=== PATIENT | female | born 1965 | race Caucasian/White ===

== ENCOUNTER 2024-01-07 13:19 | Outpatient (OUT) | payer OTHER, SELFPAY ==
--- NOTE | 2024-01-07 13:22 | MR_ITS ---
[address] [address] Patient Name: CECE SMITH MRN: [id number] date: 1965 Sex: F Assigned Patient Location: MRI Current Patient Location: Accession/Order Number: [id number] Exam Date: 01/07/2024 14:30 Report Date: 01/08/2024 06:55 At the request of: NON-STAFF PHYSICIAN Procedure: MR shoulder LT wo con EXAMINATION: MR shoulder LT wo con HISTORY: Left Shoulder Impingement Syndrome M75.42 ; chronic left shoulder pain COMPARISON: No relevant comparison available. TECHNIQUE: A variety of imaging planes and parameters were utilized for visualization of suspected pathology. Imaging was performed without or with contrast as indicated by examination type. FINDINGS: ROTATOR CUFF REGION CUFF TENDONS: Mildly increased signal intensity in the supraspinatus tendon indicates tendon degeneration and/or tendinitis. No gualberto tear is seen. CUFF MUSCLES: Normal appearing muscles. DELTOID: Normal. No significant atrophy or tear. LONG BICEPS TENDON: Normal. No abnormal signal, attrition, or tear. LABRUM/BICEPS ANCHOR SUPERIOR: Normal. No visible labral tear or biceps anchor pathology. ANTERIOR/INFERIOR: Normal. No visible tear or attrition. POSTERIOR: Normal. No posterior labrum abnormality. CAPSULE Normal. No visible capsular laxity or thickening. AC JOINT REGION AC JOINT: Mild osteoarthropathy with no significant narrowing of the underlying coracoacromial arch. AC LIGAMENTS: Normal acromioclavicular ligament. CC LIGAMENTS: Normal coracoclavicular ligaments. ACROMION: Normal horizontal (Type I) configuration. SUBACROMIAL BURSA: Normal. No significant effusion. HYALINE CARTILAGE: Normal. No visible cartilage narrowing or focal defect. OTHER BONES: Normal proximal humerus, glenoid, and coracoid. OTHER OBSERVATIONS: Negative. No other significant findings or glenohumeral effusion. MR/MR shoulder LT wo con IMPRESSION: 1. Mild strain of the supraspinatus tendon. 2. Mild degenerative changes of the acromioclavicular joint. Electronically authenticated by: EWA WOODRUFF Date: 01/08/2024 06:55
== END 2024-01-07 13:20 | disposition home or self-care (01) ==
LOC: MRI 13:19
DX: M75.42 Impingement syndrome of left shoulder (principal); M75.82 Other shoulder lesions, left shoulder; S46.012D Strain of muscle(s) and tendon(s) of the rotator cuff of left shoulder, subsequent encounter
CPT/HCPCS: 73221

== ENCOUNTER 2024-06-29 13:52 | Outpatient (OUT) | payer BC, SELFPAY ==
--- NOTE | 2024-06-29 | MM_ITS ---
Patient Name: CECE SMITH MR#: [id number] : 1965 Exam Date: 06/29/2024 Ordering Doctor: Maddy Griffith RADIOLOGY REPORT PROCEDURE: MM TOMOSYNTHESIS SCREENING BI COMPARISON: MG MAMM DIAGNOSTIC 3D LETY CAD, 02/18/2023. MG MAMM RT DIAG W CAD, 05/14/2019. MG MAMM LETY DIAG W CAD, 09/08/2018. INDICATIONS: Breast cancer screening Z12.39 Calculator Name NCI Breast Cancer Risk Assessment Tool 5 Year Breast Cancer Risk 1.70% Lifetime Breast Cancer Risk 10.40% Personal Breast Cancer No Personal Ovarian Cancer No Treatments None Family Cancers Mother with uterine cancer at age 82. LOCATION: [facility] BREAST COMPOSITION: The breasts are heterogeneously dense,which may obscure small masses. FINDINGS: DIAGNOSTIC CATEGORY 2--BENIGN FINDING: RIGHT BREAST: No significant suspicious finding. Scattered benign-appearing nodules are present. Scattered benign-appearing calcifications are present. No significant change has occurred. LEFT BREAST: No significant suspicious finding. Scattered benign-appearing nodules are present. Scattered benign-appearing calcifications are present. No significant change has occurred. RECOMMENDATIONS: ROUTINE MAMMOGRAM AND CLINICAL EVALUATION IN 12 MONTHS. PLEASE NOTE: A NORMAL MAMMOGRAM DOES NOT EXCLUDE THE POSSIBILITY OF BREAST CANCER. A CLINICALLY SUSPICIOUS PALPABLE LUMP SHOULD BE BIOPSIED. Dictated by: Brant Sequeira M.D. on 06/29/2024 at 17:23 Approved by: Brant Sequeira M.D. on 06/29/2024 at 17:27
== END 2024-06-29 13:53 | disposition home or self-care (01) ==
LOC: MAMMO 13:52
DX: Z12.31 Encounter for screening mammogram for malignant neoplasm of breast (principal); Z80.8 Family history of malignant neoplasm of other organs or systems
CPT/HCPCS: 77063; 77067

== ENCOUNTER 2025-09-05 04:07 | Emergency (ER) | payer BC, SELFPAY ==
--- OUTSIDE RECORDS SUMMARY | 2024-11-30 05:00 | XMS_ITS ---
Author Organization [facility] vices Address [address] [place], [place] [id number] Care Team Providers Care Miller Supervisor Name Role Phone Naheed Arteaga Primary Care Provider REASON FOR VISIT 6 mo f/u HTN / HLD Medications Medication SIG (Take, Route, Frequency, Duration) Notes Start Date End Date Status hydroCHLOROthiazide 12.5 MG TAKE [address] [facility] EVERY MORNING; Duration: 90 ActiveRosuvastatin Calcium 5 MGTAKE 1 TABLET BY MOUTH DAILY; Duration: 90Active Pregabalin 75 MG1 Oral twice daily; Duration: 30 daysActiveIbuprofen 600 MG1 tablet with food or milk as needed Orally Three times a day; Duration: 10 days Stop Meloxicam for now , donot take Ibuprofen and Meloxicam same time05/16/2023 Active Social History Sex Assigned At : Social History Observation Description Sex Assigned At Female Encounters Encounter Location Date Provider Diagnosis Main [address] [place], [place] [id number] 11/30/2024 Naheed Arteaga Plan Of Treatment Next Appt Details Provider Name:Naheed Arteaga, 09/14/2025 02:00:00 PM, [address] [place], [place], [id number], Progress Notes * Milka SMITHOB: 7 (60 yo F)Acc No.[id number]:11/30/2024 Medical Note Patient: Dena Kiley RODRIGUEZ :?Naheed Arteaga MDDOB:1965???Age:59 Y???Sex: FemaleDate:11/30/2024Phone:[phone]:[address], [id number] Subjective: * Chief Complaints: * 1 . 6 mo f/u HTN / HLD. * Medical History: * Medications: T aking Ibuprofen 600 MG Tablet 1 tablet with food or milk as needed Orally Three times a day , Notes to Pharmacist: Stop Meloxicam for now , donot take Ibuprofen and Meloxicam same time, Taking Pregabalin 75 MG Capsule 1 Oral twice daily , Taking Rosuvastatin Calcium 5 MG Tablet TAKE 1 TABLET BY MOUTH DAILY , Taking hydroCHLOROthiazide 12.5 MG Capsule TAKE 1 CAPSULE BY MOUTH EVERY MORNING Objective: * Vitals: Assessment: Plan: * Treatment: * Billing Information: * Visit Code: * Procedure Codes: * Electronic signature of Naheed Arteaga MD on 09/05/2025 at 04:47 AM ESTSign off status: Pending * Provider: Ryne Arteaga MD Date: 0 11/30/2024 Generated for Printing/Faxing/eTransmitting on:?09/05/2025 04:47 AM EST
--- OUTSIDE RECORDS SUMMARY | 2024-11-30 05:30 | XMS_ITS ---
Author Organization [facility] vices Address [address] [facility] [place] [id number] Care Team Providers Care Senior Planner Name Role Phone Naheed Arteaga Primary Care Provider Maddy Griffith [phone] REASON FOR VISIT 6 month f/u htn/hld Social History Sex Assigned At : Social History Observation Description Sex Assigned At Female Encounters Encounter Location Date Provider Diagnosis [facility] [address] [place] [phone] 11/30/2024 Maddy Griffith Plan Of Treatment Next Appt Details Provider Name:Naheed Arteaga, 09/14/2025 02:00:00 PM, [address] [place], [place], [phone], Progress Notes * LUIS MilkaOB: 7 (60 yo F)Acc No.[id number]:11/30/2024 Medical Note Patient: Kiley MATA :?Maddy Griffith, MDDOB:1965???Age:59 Y???Sex: FemaleDate:11/30/2024Phone:[phone]:[address], [place], [id number]:Naheedtai Arteaga Subjective: * Chief Complaints: * 1 . 6 month f/u htn/hld. * Medical History: Objective: * Vitals: Assessment: Plan: * Treatment: * Billing Information: * Visit Code: * Procedure Codes: * Electronic signature of Maddy Griffith MD on 09/05/2025 at 04:46 AM ESTSign off status: Pending * Provider: Enzo Griffith MD Date: 0 11/30/2024 Generated for Printing/Faxing/eTransmitting on:?09/05/2025 04:46 AM EST
--- OUTSIDE RECORDS SUMMARY | 2025-02-09 10:15 | XMS_ITS | Continuity of Care Document ---
Author Organization [facility] Address [address] [place] [address] Phone Care Team Providers Care Gis Physical Scientist Name Role Phone Rosas Angulo MD Unavailable Unavailable Allergies, Adverse Reactions, Alerts Substance Reaction Status Criticality ZOLPIDEM TARTRATE Active No Informa tion HYDROCODONE BITARTRATE Active No In formation acetaminophen Active No Information oxycodone Active No Information Medications Medication Instructions Dosage Effective Dates (start - stop) Status Comments meloxicam 15 mg tablet take 1 tablet by oral route every morning with food- DO NOT TAKE STEROIDS - Active meloxicam 15 mg tablet take 1 tablet by oral route every morning with food- DO NOT TAKE STEROIDS - Active meloxicam 15 mg tablet take 1 tablet by oral route every day 15 MG - Active ondansetron 8 mg disintegrating tablet dissolve 1 tablet ON TONGUE every 4 hours if needed - Active oxycodone-acetaminophen 5 mg-325 mg tablet - Active tizanidine 4 mg tablet - Act paradise gabapentin 600 mg tablet take 1 tablet by mouth three times a day - Active lisinopril 10 mg tablet take 1 tablet by mouth once daily - Active Procedures Procedure Date Office/outpatient visit,est, mod 2024 Office/outpatient visit,est, mod 2023 Office/outpatient visit,est, mod 2023 Office/outpatient visit,est, mod 2023 Office/outpatient visit,est, mod 2023 Office/outpatient visit,est, mod 2023 Drain Or inject major jointor bursa Dexamethasone sodium phos Bupivicaine Injection 0.5 mg Inj Methylpred Acetate 1 MG Office/outpatient visit,est, mod 2023 X-ray exam of shoulder, complete 2023 Office/outpatient visit,est, mod 2022 Office/outpatient visit,new, mod 2022 Office/outpatient visit,est, mod 2022 X-ray exam of neck spine2-3 views Office/outpatient visit,est, mod 2022 Office/outpatient visit,est, mod 2022 Triamcinolone acetonide inj Drain Or inject major jointor bursa Office/outpatient visit,est, mod 2022 Office/outpatient visit,est, mod 2022 X-ray exam of shoulder, complete 2022 NRV CNDJ TST 5-6 STUDIES MUSC TEST DONE W/N TEST COMP Office/outpatient visit,est, mod 2022 Office/outpatient visit,est, mod 2022 X-ray exam of neck spine2-3 views Postop followup visit X-ray exam of neck spine2-3 views PA NECK SPINE FUSE&REMOVE ADDL 22 PA Insert Spine Fix Dev, Ant 2-3 Seg Jul PA Insj biomechanical device NECK SPINE FUSE&REMOVE ADDL Insert spine fix dev, ant, 2-3 seg Insj biomechanical device Allograft, spine surg, structural Cerv flexible non-adjustable Advance Directives Directive Yes / No Effective Date File Name No Information Encounters Encounter Description Practice Location Reason(s) For Visit Diagnoses Date Provider Providers Copied on Encounter [facility] [place], [address], [place] tel:[phone] No Information 5 Kev Pillai. [address], [place], [id number], [place]. tel:[phone] Referring Provider: Rosas Lynn, [address] [place], [address]. tel:[phone] Office/outpa tient visit,est, mod [facility] [place], [address], [place] tel:[phone] [place] Other spondylosis with radiculopath y, cervical region 5 Kev Thompsonin. [address], [place], [id number], [place]. tel:[phone] Referring Provider: Rosas Lynn, [address] [place], [address]. tel:[phone] Office/outpa tient visit,est, mod [facility] [place], [address], [place] tel:[phone] [place] Other spondylosis with radiculopath y, cervical region 4 Kev Thompsonin. [address], [place], [id number], [place]. tel:[phone] Referring Provider: Rosas Lynn, [address] [place], [address]. tel:[phone] Office/outpa tient visit,est, mod [facility], [address] [place] [address], [address], [place] tel:[phone] [place] Other spondylosis with radiculopath y, cervical region 4 Angulo Rosas. [address], [place], [id number], [place]. tel:[phone] Referring Provider: Hunter Fernandes, [address] [place], [address]. tel:[phone] Office/outpa tient visit,est, mod [facility], [address] [place], [address], [place] tel:[phone] ON [place] Strain of muscle(s) and tendon(s) of the rotator cuff of left shoulder, subsequent encounterFus ion of spine, cervical region Sep-3 0 4 Robyn Harrison. [address], [place], [id number], [place]. tel:[phone] Referring Provider: Rosas Lynn, [address] [place], [address]. tel:[phone] Office/outpa tient visit,est, mod [facility], [address] [place], [address], [place] tel:[phone] ON [place] Other spondylosis with myelopathy, cervical regionOther spondylosis with radiculopath y, cervical region May- 4 Kev Pillai. [address], [place], [id number], [place]. tel:[phone] Referring Provider: Jet Mccoy, [address], [place], [address]. tel:[phone] Office/outpa tient visit,est, mod [facility], [address] [place], [address], [place] tel:[phone] [place] Other spondylosis with myelopathy, cervical regionStrain of muscle(s) and tendon(s) of the rotator cuff of left shoulder, subsequent encounterBur sitis of left shoulder 4 Alda Chaudhary. [address], [address], [place], [place], [id number], [place]. tel:[phone] Referring Provider: Michelle Marina, [address] [place], [address]. tel:[phone] [facility] [place], [place], [facility], tel:[phone] ON [place] Other shoulder lesions, left shoulderImpi ngement syndrome of left shoulder Apr-0 4 Alda Chaudhary. [address], [address], [place], [place], [id number], [place]. tel:[phone] Referring Provider: Palmer Brown [address], [place], [address]. tel:[phone] [facility], [facility] [place], [facility], tel:[phone] ON [place] Impingement syndrome of left shoulderOthe r shoulder lesions, left shoulderStra in of muscle(s) and tendon(s) of the rotator cuff of left shoulder, subsequent encounterImp ingement syndrome of left shoulderOthe r shoulder lesions, left shoulderStra in of muscle(s) and tendon(s) of the rotator cuff of left shoulder, subsequent encounter Mar-0 4 Alda Chaudhary. [address] [facility] [address], [address], [place], [place], [id number], [place]. tel:[phone] Referring Provider: Palmer Brown [address], [place], [address]. tel:[phone] Office/outpa tient visit,est, mod [facility] [place], [facility], tel:[phone] ON [place] Bursitis of left shoulderStra in of muscle(s) and tendon(s) of the rotator cuff of left shoulder, subsequent encounterOth er spondylosis with myelopathy, cervical region Nov- 4 Alda Chaudhary. [address], [address], [place], [place], [id number], [place]. tel:[phone] Referring Provider: Palmer Brown [address], [place], [address]. tel:[phone] [facility] [place], [address], [place] tel:[phone] ON [place] Arthrodesis statusImping ement syndrome of left shoulderOthe r spondylosis with radiculopath y, cervical region 4 Lexi Chakraborty. [address], [place], [place], [id number], [place]. tel:[phone] Referring Provider: Palmer Brown, [address], [place], [address]. tel:[phone] Office/outpa tient visit,est, mod [facility] [place], [address], [place] tel:[phone] ON [place] Other spondylosis with radiculopath y, cervical region 3 Lexi Chakraborty. [address], [place], [place], [id number], [place]. tel:[phone] Referring Provider: Palmer Brown, [address], [place], [address]. tel:[phone] Office/outpa tient visit,new, mod [facility] [place], [address], [place] tel:[phone] ON [place] Cervical disc disorder at C4-C5 level with radiculopath yOther spondylosis with radiculopath y, cervical regionOther spondylosis with myelopathy, cervical regionCerv disc disorder w radiculopath y, high cervical region 3 Kev Thompsonin. [address] [facility], [place], [place], [id number], [place]. tel:[phone] Referring Provider: Palmer Brown, [address], [place], [address]. tel:[phone] Office/outpa tient visit,est, mod [facility] [place], [address], [place] tel:[phone] ON [place] Arthrodesis statusCervic al disc disorder at C4-C5 level with radiculopath yOther spondylosis with radiculopath y, cervical region Mar- 3 Jaime Rahman. [address], [place], [place], [id number]. tel:[phone] Referring Provider: Palmer Brown, [address], [place], [address]. tel:[phone] Office/outpa tient visit,est, mod [facility], [address] [place], [address], [place] tel:[phone] ON [place] Strain of [facility]/tend the rotator cuff of left shoulder, subsBursitis of left shoulder 3 Arsenio Smith. [address], [place], [place], [id number], [place]. tel:[phone] Referring Provider: Luis Breen, [address], [place], [address]. tel:[phone] Office/outpa tient visit,est, mod [facility], [address] [place], [address], [place] tel:[phone] ON [place] Other shoulder lesions, left shoulderImpi ngement syndrome of left shoulderImpi ngement syndrome of left shoulderOthe r shoulder lesions, left shoulderStra in of [facility]/tend the rotator cuff of left shoulder, subsBursitis of left shoulder Dec- 3 Arsenio Smith. [address], [place], [place], [id number], [place]. tel:[phone] Referring Provider: Luis Breen, [address], [place], [address]. tel:[phone] Office/outpa tient visit,est, mod [facility], [address] [place], [address], [place] tel:[phone] [place] Arthrodesis statusOther spondylosis with radiculopath y, cervical region Mar- 3 Jaime Lacey. [address], [place], [place], [id number]. tel:[phone] Referring Provider: Palmer Brown, [address], [place], [address]. tel:[phone] Office/outpa tient visit,est, mod [facility] [place], [address], [place] tel:[phone] ON [place] Strain of musc/tend the rotator cuff of left shoulder, initBursitis of left shoulder Dec-1 3 Arsenio Smith. [address], [place], [place], [id number], [place]. tel:[phone] Referring Provider: Palmer Brown, [address], [place], [address]. tel:[phone] [facility] [place], [facility], [place] tel:[phone] ON [place] EMG/NCS (chief complaint) Left carpal tunnel syndromeOthe r spondylosis with myelopathy, cervical region Dec-0 3 Marla Saab. [address] [place] [address], [place], [place], [id number], [place]. tel:[phone] Referring Provider: Palmer Brown, [address], [place], [address]. tel:[phone] Office/outpa tient visit,est, mod [facility] [place], [address], [place] tel:[phone] [place] Other spondylosis with myelopathy, cervical regionOther spondylosis with radiculopath y, cervical regionArthro desis statusChroni c left shoulder painLeft carpal tunnel syndromeOthe r spondylosis with myelopathy, cervical regionOther spondylosis with radiculopath y, cervical regionArthro desis statusChroni c left shoulder pain Dec-0 3 Lexi Chakraborty. [address], [place], [place], [id number], [place]. tel:[phone] Referring Provider: Palmer Brown, [address], [place], [address]. tel:[phone] [facility], [facility] [place], [facility], tel:[phone] ON [place] Other spondylosis with radiculopath y, cervical regionOther spondylosis with myelopathy, cervical region 3 Lexi Chakraborty. [address], [place], [place], [id number], [place]. tel:[phone] Referring Provider: Palmer Brown, [address], [place], [address]. tel:[phone] Office/outpa tient visit,est, [facility] [place], [facility], tel:[phone] ON [place] Arthrodesis statusLeft carpal tunnel syndromeChro cristhian left shoulder pain 3 Jalovec Lacey. [address], [place], [id number]. tel:[phone] Referring Provider: Palmer Brown, [address], [place], [address]. tel:[phone] [facility], [facility] [place], [facility], tel:[phone] ON [place] Arthrodesis statusOther spondylosis with radiculopath y, cervical region 2 Lexi Chakraborty. [address], [place], [place], [id number], [place]. tel:[phone] Referring Provider: Palmer Brown, [address], [place], [address]. tel:[phone] [facility], [facility] [place], [facility], tel:[phone] ON [place] Arthrodesis statusOther spondylosis with radiculopath y, cervical region 2 Lexi Chakraborty. [address], [place], [place], [id number], [place]. tel:[phone] Referring Provider: Palmer Brown, [address], [place], [address]. tel:[phone] [facility], [address], [place], [facility], [place] tel:[phone] [place] No Information 2 White Palmer. [address], [place], [place], [id number], [place]. tel:[phone] [facility], [address], [place], [facility], [place] tel:[phone] [facility] No Information 2 Jaime Rahman. [address] [facility], [place], [place], [id number]. tel:[phone] Referring Provider: Palmer Brown, [address], [place], [address]. tel:[phone] [facility], [address], [place], [facility], [place] tel:[phone] [facility] No Information 2 White Palmer. [address], [place], [place], [id number], [place]. tel:[phone] Referring Provider: Palmer Brown, [address], [place], [address]. tel:[phone] [facility] [place], [facility], [place] tel:[phone] [place] No Information 2 Lexi Chakraborty. [address], [place], [place], [id number], [place]. tel:[phone] Referring Provider: Palmer Brown, [address], [place], [address]. tel:[phone] Family History Family Member Type Diagnosis Age At Onset Sister Problem (finding) Hypertension Sister Problem (finding) Diabetes mellitus Father Problem (finding) Diabetes mellitus Brother Problem (finding) Diabetes mellitus Father Problem (finding) Hypertension Brother Problem (finding) Hypertension Mother Problem (finding) Cancer Mother Problem (finding) Congenital heart diseas e Father Problem (finding) Congenital heart diseas e Mother Problem (finding) Hypertension Payers Payer name Insurance type Covered republican ID Authormarka faiza(s) [employer] [id number] Social History Type Description Quantity Date Captured Comments Sex Female Smoking Status No Information Chief Complaint And Reason For Visit No Information Reason For Referral Reason For Referral No Information Plan Of Treatment Date Type Action Status Referral Ordered: Krystyna Tang MD -Pain Medicine (related to Other spondylosis with radiculopathy, cervical region) [id number] Ordered: Dr. Gunn -Physical Medicine and Rehabilitation (related to Other shoulder lesions, left shoulder) [id number] Referred To: Dr. Gunn Ordered: Referrals: Physical Medicine and Rehabilitation. Dr. Gunn. Evaluate and treat [id number] Ordered: Dr. Guillaume Santacruz -Physical Medicine and Rehabilitation (related to Impingement syndrome of left shoulder) [id number] Referred To: Dr. Guillaume Santacruz Ordered: Referrals: Physical Medicine and Rehabilitation. Dr. Guillaume Santacruz. Evaluate and treat [id number] Order: Radiology OrderShoulder MRI joint, w/o contrast, Left ([id number]), Body Site: Shoulder, Sent on: [id number] Order: Radiology OrderCervical Spine MRI w/o contrast, Complete ([id number]), Body Site: Spine, Sent on: [id number] History Of Present Illness Encounter Date Complaint History Of Prese nt Illness Follow Up Spine-lumbar Injection Denise Reyes is 59-year-old patient presenting here for follow-up. She returns after having been seen last on 09/15/2024. We had recommended 2 rounds of C3-C5 medial branch nerve blocks in preparation for radiofrequency ablation. Those have not been completed. We submitted C9 for approval. She reports the pain score as 7 /10 today but it can rise up to a higher level. She expresses that the first round of nerve blocks was too painful to continue with the second, and local anesthesia did not provide significant relief. The patient has moved since the last visit, which has impacted her ability to follow through with the recommended treatment. She is considering returning to work full-time and is seeking a second opinion from an outside pain doctor for alternative pain management options. The patient also reports pain while driving, indicating that the cervical issue persists. She has a history of workman's comp and is currently without a primary care doctor due to her previous doctor qu Follow Up Spine-maya Cao is a 59-year-old patient presenting here for cervical spine pain. We saw her last on 07/22/2024. We had recommended 2 rounds of C3 through C5 medial branch nerve blocks in preparation for radiofrequency ablation. These nerve blocks have not been completed. She reports the pain score as 6/10 today. The pain radiates past the shoulders and down the arms, causing numbness and tingling in the hands. The patient experiences difficulty with rotational movements of the neck. The patient reports that the pain is getting worse. The patient has previously undergone surgery and has consulted multiple doctors for this issue. She denies any red flag symptoms and paralysis or loss in bladder control. She reports that the symptoms are affecting all activities of daily life as well as overall quality of life. New Problem Maya Cao is a 59-year-old patient presenting here for cervical spine pain. She is a referral from Dr. Hunter Carlson. She had a work-related injury on 05/07/2017 involving her cervical spine. Patient has a history of C5-C6 ACDF that was performed by Dr. Elliott in 2021. She has had increased neck pain towards the left shoulder through the medial scapula border as well. Left side is C4-5 transforaminal epidural steroid injection was attempted with little to no relief. She also had a shoulder injection with limited benefit. She had an EMG which was read as normal. MRI demonstrated a previous strain of her supraspinatus. She is here to discuss other potential treatments. She has tried medications like gabapentin, Percocet, tizanidine, meloxicam, without relief. Previous MRI demonstrated absence of critical adjacent segment stenosis. She has been recommended for possible super scapular peripheral nerve stimulator versus cervical medial branch blocks. She reports left shoulder pain after her Follow Up Spine-lumbar Kiley is a 59-year-old patient presenting here for left shoulder pain. We last saw her on 08/01/2023 discussing her workman's comp claim and left shoulder pain. She had a previous ACF surgery back in 2021. She had failed physical therapy, medications and is recommended for a targeted cervical transforaminal epidural steroid injection that I did not complete. We had referred her over to Dr. Krystyna Tang. She has recently seen Dr. Lizama. She reports severe neck and shoulder pain. She reports associated numbness. She reports that she received an injection from Dr. Tang in January or December with no significant benefit. She received an injection from Dr. Lizama. She has tried physical therapy and medications. She denies any red flag symptoms and paralysis or loss in bladder control. She reports the pain score as 6/10 today. She reports that the symptoms are affecting all activities of daily life as well as overall quality of life. EMG/NCS Functional Status Date Functional Assessmen t No Information Instructions Date Instruction Additional Infor mation No Information Assessments Type Assessment Date No Information Patient Care Teams Name Effective Dates (start - stop) Status Members No Information
--- OUTSIDE RECORDS SUMMARY | 2025-02-09 10:15 | XMS_ITS | Continuity of Care Document ---
Author Organization [facility] Address [address] [place] [address] Phone Care Team Providers Care Radio Program Director Name Role Phone Rosas Angulo MD Unavailable [...] Providers Copied on Encounter [facility], [facility] [place], [address], [place] tel:[phone] No Information 5 Kev Pillai. [address], [place], [id number], [place]. tel:[phone] Referring Provider: Rosas Lynn, [address] [place], [address]. tel:[phone] Office/outpa tient visit,est, mod [facility], [facility] [place], [address], [place] tel:[phone] ON [place] Other spondylosis with radiculopath y, cervical region 5 Kev Thompsonin. [address], [place], [id number], [place]. tel:[phone] Referring Provider: Rosas Lynn, [address] [place], [address]. tel:[phone] Office/outpa tient visit,est, mod [facility], [facility] [place], [address], [place] tel:[phone] ON [place] Other spondylosis with radiculopath y, cervical region 4 Kev Thompsonin. [address], [place], [id number], [place]. tel:[phone] Referring Provider: Rosas Lynn, [address] [place], [address]. tel:[phone] Office/outpa tient visit,est, mod [facility], [address] [place] [address], [address], [place] tel:[phone] ON [place] Other spondylosis with radiculopath y, cervical region 4 Angulo Rosas. [address], [place], [id number], [place]. tel:[phone] Referring Provider: Hunter Fernandes, [address] [place], [address]. tel:[phone] Office/outpa tient visit,est, mod [facility], [address] [place], [address], [place] tel:[phone] ON [place] Strain of muscle(s) and tendon(s) of the rotator cuff of left shoulder, subsequent encounterFus ion of spine, cervical region Sep-3 0 4 Robyn Harrison. [address], [place], [id number], [place]. tel:[phone] Referring Provider: Rosas Lynn, [address] [place], [address]. tel:[phone] Office/outpa tient visit,est, mod [facility], [address] [place], [address], [place] tel:[phone] ON [place] Other spondylosis with myelopathy, cervical regionOther spondylosis with radiculopath y, cervical region May- 4 Kev Pillai. [address], [place], [id number], [place]. tel:[phone] Referring Provider: Jet Mccoy, [address], [place], [address]. tel:[phone] Office/outpa tient visit,est, mod [facility], [address] [place], [address], [place] tel:[phone] ON [place] Other spondylosis with myelopathy, cervical regionStrain of muscle(s) and tendon(s) of the rotator cuff of left shoulder, subsequent encounterBur sitis of left shoulder 4 Alda Chaudhary. [address], [address], [place], [place], [id number], [place]. tel:[phone] Referring Provider: Michelle Marina, [address] [place], [address]. tel:[phone] [facility], [facility] [place], [facility], tel:[phone] ON [place] Other shoulder lesions, left shoulderImpi ngement syndrome of left shoulder Apr-0 4 Alda Chaudhary. [address], [address], [place], [place], [id number], [place]. tel:[phone] Referring Provider: Palmer Brown [address], [place], [address]. tel:[phone] [facility], [facility] [place], [facility], tel:[phone] ON [place] Impingement syndrome of left shoulderOthe r shoulder lesions, left shoulderStra in of muscle(s) and tendon(s) of the rotator cuff of left shoulder, subsequent encounterImp ingement syndrome of left shoulderOthe r shoulder lesions, left shoulderStra in of muscle(s) and tendon(s) of the rotator cuff of left shoulder, subsequent encounter Mar-0 4 Alda Chaudhary. [address] [facility] [facility] [address], [place], [place], [id number], [place]. tel:[phone] Referring Provider: Palmer Brown [address], [place], [address]. tel:[phone] Office/outpa tient visit,est, mod [facility], [facility] [place], [facility], tel:[phone] ON [place] Bursitis of left shoulderStra in of muscle(s) and tendon(s) of the rotator cuff of left shoulder, subsequent encounterOth er spondylosis with myelopathy, cervical region Nov- 4 Alda Chaudhary. [address], [address], [place], [place], [id number], [place]. tel:[phone] Referring Provider: Palmer Brown [address], [place], [address]. tel:[phone] [facility] [place], [address], [place] tel:[phone] ON [place] Arthrodesis statusImping ement syndrome of left shoulderOthe r spondylosis with radiculopath y, cervical region 4 Lexi Chakraborty. [address], [place], [place], [id number], [place]. tel:[phone] Referring Provider: Palmer Brown, [address], [place], [address]. tel:[phone] Office/outpa tient visit,est, mod [facility], [facility] [place], [address], [place] tel:[phone] ON [place] Other spondylosis with radiculopath y, cervical region 3 Lexi Chakraborty. [address], [place], [place], [id number], [place]. tel:[phone] Referring Provider: Palmer Brown, [address], [place], [address]. tel:[phone] Office/outpa tient visit,new, mod [facility], [facility] [place], [address], [place] tel:[phone] ON [place] Cervical disc disorder at C4-C5 level with radiculopath yOther spondylosis with radiculopath y, cervical regionOther spondylosis with myelopathy, cervical regionCerv disc disorder w radiculopath y, high cervical region 3 Kev Thompsonin. [address] [facility], [place], [place], [id number], [place]. tel:[phone] Referring Provider: Palmer Brown, [address], [place], [address]. tel:[phone] Office/outpa tient visit,est, mod [facility], [facility] [place], [address], [place] tel:[phone] ON [place] Arthrodesis statusCervic al disc disorder at C4-C5 level with radiculopath yOther spondylosis with radiculopath y, cervical region Mar- 3 Jaime Rahman. [address], [place], [place], [id number]. tel:[phone] Referring Provider: Palmer Brown, [address], [place], [address]. tel:[phone] Office/outpa tient visit,est, mod [facility] [place], [address] [place], [address], [place] tel:[phone] ON [place] Strain of [facility]tend the rotator cuff of left shoulder, subsBursitis of left shoulder 3 Arsenio Smith. [address], [place], [place], [id number], [place]. tel:[phone] Referring Provider: Luis Breen, [address], [place], [address]. tel:[phone] Office/outpa tient visit,est, mod [facility] [place], [address] [place], [address], [place] tel:[phone] ON [place] Other shoulder lesions, left shoulderImpi ngement syndrome of left shoulderImpi ngement syndrome of left shoulderOthe r shoulder lesions, left shoulderStra in of [facility]/tend the rotator cuff of left shoulder, subsBursitis of left shoulder Dec- 3 Arsenio Smith. [address], [place], [place], [id number], [place]. tel:[phone] Referring Provider: Luis Breen, [address], [place], [address]. tel:[phone] Office/outpa tient visit,est, mod [facility] [place], [address] [place], [address], [place] tel:[phone] ON [place] Arthrodesis statusOther spondylosis with radiculopath y, cervical region Mar- 3 Jaime Lacey. [address], [place], [place], [id number]. tel:[phone] Referring Provider: Palmer Brown, [address], [place], [address]. tel:[phone] Office/outpa tient visit,est, mod [facility] [place], [facility] [place], [address], [place] tel:[phone] ON [place] Strain of musc/tend the rotator cuff of left shoulder, initBursitis of left shoulder Dec-1 3 Arsenio Smith. [address], [place], [place], [id number], [place]. tel:[phone] Referring Provider: Palmer Brown, [address], [place], [address]. tel:[phone] [facility] [place], [facility] [place], [facility], [place] tel:[phone] ON [place] EMG/NCS (chief complaint) Left carpal tunnel syndromeOthe r spondylosis with myelopathy, cervical region Dec-0 3 Marla Saab. [address] , [place] [address], [place], [place], [id number], [place]. tel:[phone] Referring Provider: Palmer Brown, [address], [place], [address]. tel:[phone] Office/outpa tient visit,est, mod [facility] [place], [facility] [place], [address], [place] tel:[phone] ON [place] Other spondylosis with myelopathy, cervical regionOther spondylosis with radiculopath y, cervical regionArthro desis statusChroni c left shoulder painLeft carpal tunnel syndromeOthe r spondylosis with myelopathy, cervical regionOther spondylosis with radiculopath y, cervical regionArthro desis statusChroni c left shoulder pain Dec-0 3 Lexi Chakraborty. [address], [place], [place], [id number], [place]. tel:[phone] Referring Provider: Palmer Brown, [address], [place], [address]. tel:[phone] [facility], [facility] [place], [facility], tel:[phone] ON [place] Other spondylosis with radiculopath y, cervical regionOther spondylosis with myelopathy, cervical region 3 Lexi Chakraborty. [address], [place], [place], [id number], [place]. tel:[phone] Referring Provider: Palmer Brown, [address], [place], [address]. tel:[phone] Office/outpa tient visit,est, [facility] [place] [place], [facility], tel:[phone] ON [place] Arthrodesis statusLeft carpal tunnel syndromeChro cristhian left shoulder pain 3 Jalovec Lacey. [address], [place], [id number]. tel:[phone] Referring Provider: Palmer Brown, [address], [place], [address]. tel:[phone] [facility], [facility] [place], [facility], tel:[phone] ON [place] Arthrodesis statusOther spondylosis with radiculopath y, cervical region 2 Lexi Chakraborty. [address], [place], [place], [id number], [place]. tel:[phone] Referring Provider: Palmer Brown, [address], [place], [address]. tel:[phone] [facility], [facility] [place], [facility], tel:[phone] ON [place] Arthrodesis statusOther spondylosis with radiculopath y, cervical region 2 Lexi Chakraborty. [address], [place], [place], [address], [place]. tel:[phone] Referring Provider: Palmer Brown, [address], [place], [address]. tel:[phone] [facility] [place], [address] [place], [place], [facility], [place] tel:[phone] ON [place] No Information 2 White Palmer. [address], [place], [place], [id number], [place]. tel:[phone] [facility] [place], [address] [place], [place], [facility], [place] tel:[phone] [facility] No Information 2 Jaime Rahman. [address] [facility], [place], [place], [id number]. tel:[phone] Referring Provider: Palmer Brown, [address], [place], [address]. tel:[phone] [facility] [place], [address] [place], [place], [facility], [place] tel:[phone] [facility] No Information 2 White Palmer. [address], [place], [place], [id number], [place]. tel:[phone] Referring Provider: Palmer Brown, [address], [place], [address]. tel:[phone] [facility] [place], [facility] [place], [facility], [place] tel:[phone] ON [place] No Information 2 Lexi Chakraborty. [address], [place], [place], [id number], [place]. tel:[phone] Referring Provider: Palmer Brown, [address], [place], [address]. tel:[phone] Family History Family Member Type Diagnosis Age [...] Hypertension Payers Payer name Insurance type Covered democrat ID Authormarka faiza(s) [employer]- [employer] [id number] Social History Type Description Quantity Date Captured Comments Sex Female Smoking Status No Information Chief Complaint And Reason For Visit No Information Reason For Referral Reason For Referral No Information Plan Of Treatment Date Type Action Status Referral Ordered: Krystyna Tang MD -Pain Medicine (related to Other spondylosis with radiculopathy, cervical region) [id number] Ordered: Dr. Gunn -Physical Medicine and Rehabilitation (related to Other shoulder lesions, left shoulder) [id number] Referred To: Dr. Gunn Ordered: Referrals: Physical Medicine and Rehabilitation. Dr. Gunn. Evaluate and treat [id number] Ordered: Dr. Guillaume Santacruz -Physical Medicine and Rehabilitation (related to Impingement syndrome of left shoulder) [id number] Referred To: Dr. Guillaume Santacruz Ordered: Referrals: Physical Medicine and Rehabilitation. Dr. Guillaume Santacruz. Evaluate and treat [id number] Order: Radiology OrderShoulder MRI joint, w/o contrast, Left (14711), Body Site: Shoulder, Sent on: [id number] Order: Radiology OrderCervical Spine MRI w/o contrast, Complete ([id number]), Body Site: Spine, Sent on: [id number] History Of Present Illness Encounter Date Complaint [...]
--- OUTSIDE RECORDS SUMMARY | 2025-02-09 10:15 | XMS_ITS | Continuity of Care Document ---
Author Organization [facility] Address [address] [place] [address] Phone Care Team Providers Care Moto Mix Operator Name Role Phone Rosas Angulo MD Unavailable [...] Providers Copied on Encounter [facility], [facility] [place], [address], [place] tel:[phone] No Information 5 Kev Pillai. [address], [place], [id number], [place]. tel:[phone] Referring Provider: Rosas Lynn, [address] [place], [address]. tel:[phone] Office/outpa tient visit,est, mod [facility], [facility] [place], [address], [place] tel:[phone] ON [place] Other spondylosis with radiculopath y, cervical region 5 Kev Thompsonin. [address], [place], [id number], [place]. tel:[phone] Referring Provider: Rosas Lynn, [address] [place], [address]. tel:[phone] Office/outpa tient visit,est, mod [facility], [facility] [place], [address], [place] tel:[phone] ON [place] Other spondylosis with radiculopath y, cervical region 4 Kev Thompsonin. [address], [place], [id number], [place]. tel:[phone] Referring Provider: Rosas Lynn, [address] [place], [address]. tel:[phone] Office/outpa tient visit,est, mod [facility], [address] [place] [address], [address], [place] tel:[phone] ON [place] Other spondylosis with radiculopath y, cervical region 4 Angulo Rosas. [address], [place], [id number], [place]. tel:[phone] Referring Provider: Hunter Fernandes, [address] [place], [address]. tel:[phone] Office/outpa tient visit,est, mod [facility], [address] [place], [address], [place] tel:[phone] ON [place] Strain of muscle(s) and tendon(s) of the rotator cuff of left shoulder, subsequent encounterFus ion of spine, cervical region Sep-3 0 4 Robyn Harrison. [address], [place], [id number], [place]. tel:[phone] Referring Provider: Rosas Lynn, [address] [place], [address]. tel:[phone] Office/outpa tient visit,est, mod [facility], [address] [place], [address], [place] tel:[phone] ON [place] Other spondylosis with myelopathy, cervical regionOther spondylosis with radiculopath y, cervical region May- 4 Kev Pillai. [address], [place], [id number], [place]. tel:[phone] Referring Provider: Jet Mccoy, [address], [place], [address]. tel:[phone] Office/outpa tient visit,est, mod [facility], [address] [place], [address], [place] tel:[phone] ON [place] Other spondylosis with myelopathy, cervical regionStrain of muscle(s) and tendon(s) of the rotator cuff of left shoulder, subsequent encounterBur sitis of left shoulder 4 Alda Chaudhary. [address], [address], [place], [place], [id number], [place]. tel:[phone] Referring Provider: Michelle Marina, [address] [place], [address]. tel:[phone] [facility], [facility] [place], [facility] [place], tel:[phone] ON [place] Other shoulder lesions, left shoulderImpi ngement syndrome of left shoulder Apr-0 4 Alda Chaudhary. [address], [address], [place], [place], [id number], [place]. tel:[phone] Referring Provider: Palmer Brown [address], [place], [address]. tel:[phone] [facility], [facility] [place], [facility] [place], tel:[phone] ON [place] Impingement syndrome of left shoulderOthe r shoulder lesions, left shoulderStra in of muscle(s) and tendon(s) of the rotator cuff of left shoulder, subsequent encounterImp ingement syndrome of left shoulderOthe r shoulder lesions, left shoulderStra in of muscle(s) and tendon(s) of the rotator cuff of left shoulder, subsequent encounter Mar-0 4 Alda Chaudhary. [address] [facility] [address], [address], [place], [place], [id number], [place]. tel:[phone] Referring Provider: Palmer Borwn [address], [place], [address]. tel:[phone] Office/outpa tient visit,est, mod [facility], [facility] [place], [facility] [place], tel:[phone] ON [place] Bursitis of left shoulderStra in of muscle(s) and tendon(s) of the rotator cuff of left shoulder, subsequent encounterOth er spondylosis with myelopathy, cervical region Nov- 4 Alda Chaudhary. [address], [address], [place], [place], [id number], [place]. tel:[phone] Referring Provider: Palmer Brown [address], [place], [address]. tel:[phone] [facility], [facility] [place], [address], [place] tel:[phone] ON [place] Arthrodesis statusImping ement syndrome of left shoulderOthe r spondylosis with radiculopath y, cervical region 4 Lexi Chakraborty. [address], [place], [place], [id number], [place]. tel:[phone] Referring Provider: Palmer Brown, [address], [place], [address]. tel:[phone] Office/outpa tient visit,est, mod [facility], [facility] [place], [address], [place] tel:[phone] ON [place] Other spondylosis with radiculopath y, cervical region 3 Lexi Chakraborty. [address], [place], [place], [id number], [place]. tel:[phone] Referring Provider: Palmer Brown, [address], [place], [address]. tel:[phone] Office/outpa tient visit,new, mod [facility], [facility] [place], [address], [place] tel:[phone] ON [place] Cervical disc disorder at C4-C5 level with radiculopath yOther spondylosis with radiculopath y, cervical regionOther spondylosis with myelopathy, cervical regionCerv disc disorder w radiculopath y, high cervical region 3 Kev Thompsonin. [address] [facility], [place], [place], [id number], [place]. tel:[phone] Referring Provider: Palmer Brown, [address], [place], [address]. tel:[phone] Office/outpa tient visit,est, mod [facility], [facility] [place], [address], [place] tel:[phone] ON [place] Arthrodesis statusCervic al disc disorder at C4-C5 level with radiculopath yOther spondylosis with radiculopath y, cervical region Mar- 3 Jaime Rahman. [address], [place], [place], [id number]. tel:[phone] Referring Provider: Palmer Brown, [address], [place], [address]. tel:[phone] Office/outpa tient visit,est, mod [facility], [address] [place], [address], [place] tel:[phone] ON [place] Strain of [facility]tend the rotator cuff of left shoulder, subsBursitis of left shoulder 3 Arsenio Smith. [address], [place], [place], [id number], [place]. tel:[phone] Referring Provider: Luis Breen, [address], [place], [address]. tel:[phone] Office/outpa tient visit,est, mod [facility], [address] [place], [address], [place] tel:[phone] ON [place] Other shoulder lesions, left shoulderImpi ngement syndrome of left shoulderImpi ngement syndrome of left shoulderOthe r shoulder lesions, left shoulderStra in of [facility]/tend the rotator cuff of left shoulder, subsBursitis of left shoulder Dec- 3 Arsenio Smith. [address], [place], [place], [id number], [place]. tel:[phone] Referring Provider: Luis Breen, [address], [place], [address]. tel:[phone] Office/outpa tient visit,est, mod [facility], [address] [place], [address], [place] tel:[phone] ON [place] Arthrodesis statusOther spondylosis with radiculopath y, cervical region Mar- 3 Jaime Lacey. [address], [place], [place], [address]. tel:[phone] Referring Provider: Palmer Brown, [address], [place], [address]. tel:[phone] Office/outpa tient visit,est, mod [facility], [facility] [place], [address], [place] tel:[phone] ON [place] Strain of musc/tend the rotator cuff of left shoulder, initBursitis of left shoulder Dec-1 3 Arsenio Smith. [address], [place], [place], [id number], [place]. tel:[phone] Referring Provider: Palmer Brown, [address], [place], [address]. tel:[phone] [facility], [facility] [place], [facility] [place], [place] tel:[phone] ON [place] EMG/NCS (chief complaint) Left carpal tunnel syndromeOthe r spondylosis with myelopathy, cervical region Dec-0 3 Marla Saab. [address] [place] [address], [place], [place], [id number], [place]. tel:[phone] Referring Provider: Palmer Brown, [address], [place], [address]. tel:[phone] Office/outpa tient visit,est, mod [facility], [facility] [place], [address], [place] tel:[phone] ON [place] Other spondylosis with myelopathy, cervical regionOther spondylosis with radiculopath y, cervical regionArthro desis statusChroni c left shoulder painLeft carpal tunnel syndromeOthe r spondylosis with myelopathy, cervical regionOther spondylosis with radiculopath y, cervical regionArthro desis statusChroni c left shoulder pain Dec-0 3 Lexi Chakraborty. [address], [place], [place], [id number], [place]. tel:[phone] Referring Provider: Palmer Brown, [address], [place], [address]. tel:[phone] [facility], [facility] [place], [facility] [place], tel:[phone] ON [place] Other spondylosis with radiculopath y, cervical regionOther spondylosis with myelopathy, cervical region 3 Lexi Chakraborty. [address], [place], [place], [address], [place]. tel:[phone] Referring Provider: Palmer Brown, [address], [place], [address]. tel:[phone] Office/outpa tient visit,est, [facility], [facility] [place], [facility] [place], tel:[phone] ON [place] Arthrodesis statusLeft carpal tunnel syndromeChro cirsthian left shoulder pain 3 Jalovec Lacey. [address], [place], [id number]. tel:[phone] Referring Provider: Palmer Brown, [address], [place], [address]. tel:[phone] [facility], [facility] [place], [facility] [place], tel:[phone] ON [place] Arthrodesis statusOther spondylosis with radiculopath y, cervical region 2 Lexi Chakraborty. [address], [place], [place], [id number], [place]. tel:[phone] Referring Provider: Palmer Brown, [address], [place], [address]. tel:[phone] [facility], [facility] [place], [facility] [place], tel:[phone] ON [place] Arthrodesis statusOther spondylosis with radiculopath y, cervical region 2 Lexi Chakraborty. [address], [place], [place], [address], [place]. tel:[phone] Referring Provider: Palmer Brown, [address], [place], [address]. tel:[phone] [facility], [address] [place], [place], [facility] [place], [place] tel:[phone] ON [place] No Information 2 White Palmer. [address], [place], [place], [address], [place]. tel:[phone] [facility], [address] [place], [place], [facility] [place], [place] tel:[phone] [facility] No Information 2 Jaime Rahman. [address] [facility], [place], [place], [id number]. tel:[phone] Referring Provider: Palmer Brown, [address], [place], [address]. tel:[phone] [facility], [address] [place], [place], [facility] [place], [place] tel:[phone] [facility] No Information 2 White Palmer. [address], [place], [place], [address], [place]. tel:[phone] Referring Provider: Palmer Brown, [address], [place], [address]. tel:[phone] [facility], [facility] [place], [facility], [place] tel:[phone] ON [place] No Information 2 Lexi Chakraborty. [address], [place], [place], [address], [place]. tel:[phone] Referring Provider: Palmer Brown, [address], [place], [address]. tel:[phone] Family History Family Member Type Diagnosis Age [...] Hypertension Payers Payer name Insurance type Covered libertarian ID Authormarka faiza(s) [employer]- [employer] [id number] Social History Type Description Quantity Date Captured Comments Sex Female Smoking Status No Information Chief Complaint And Reason For Visit No Information Reason For Referral Reason For Referral No Information Plan Of Treatment Date Type Action Status Referral Ordered: Krystyna Tang MD -Pain Medicine (related to Other spondylosis with radiculopathy, cervical region) [id number] Ordered: Dr. Gunn -Physical Medicine and Rehabilitation (related to Other shoulder lesions, left shoulder) [id number] Referred To: Dr. Gunn Ordered: Referrals: Physical Medicine and Rehabilitation. Dr. Gunn. Evaluate and treat [id number] Ordered: Dr. Guillaume Santacruz -Physical Medicine and Rehabilitation (related to Impingement syndrome of left shoulder) [id number] Referred To: Dr. Guillaume Santacruz Ordered: Referrals: Physical Medicine and Rehabilitation. Dr. Guillaume Santacruz. Evaluate and treat [id number] Order: Radiology OrderShoulder MRI joint, w/o contrast, Left ([id number]), Body Site: Shoulder, Sent on: [id number] Order: Radiology OrderCervical Spine MRI w/o contrast, Complete ([id number]), Body Site: Spine, Sent on: [id number] History Of Present Illness Encounter Date Complaint [...]
--- OUTSIDE RECORDS SUMMARY | 2025-02-17 08:15 | XMS_ITS ---
Author Organization [facility] vices Address [address] [place] [id number] Care Team Providers Care Electric Melt Operator Name Role Phone Naheed Arteaga Primary Care Provider REASON FOR VISIT Depression and labs Social History Sex Assigned At : Social History Observation Description Sex Assigned At Female Encounters Encounter Location Date Provider Diagnosis Main [address] [place] [place] [id number] 02/17/2025 Naheed Arteaga Plan Of Treatment Next Appt Details Provider Name:Naheed Arteaga, 09/14/2025 02:00:00 PM, [address] [place], [id number], Progress Notes * Gilmer SMITHMercedesOB: 7 (60 yo F)Acc No.[id number]:02/17/2025 Medical Note Patient: Dena STEENKiley MOREL :?Naheedtai Arteaga, MDDOB:1965???Age:59 Y???Sex: FemaleDate:02/17/2025Phone:[phone]:0 ON [address] [facility] [address], [place], [place] Subjective: * Chief Complaints: * 1 . Depression and labs. * Medical History: Objective: * Vitals: Assessment: Plan: * Treatment: * Billing Information: * Visit Code: * Procedure Codes: * Electronic signature of Naheed Arteaga MD on 09/05/2025 at 04:48 AM ESTSign off status: Pending * Provider: Ryne Arteaga MD Date: 0 02/17/2025 Generated for Printing/Faxing/eTransmitting on:?09/05/2025 04:48 AM EST
--- OUTSIDE RECORDS SUMMARY | 2025-03-28 08:30 | XMS_ITS ---
Author Organization [facility] vices Address [address] [place] [id number] Care Team Providers Care Technologist Infectious Disease Name Role Phone Naheed Arteaga Primary Care Provider REASON FOR VISIT Depression Social History Sex Assigned At : Social History Observation Description Sex Assigned At Female Encounters Encounter Location Date Provider Diagnosis Main [address] [place] [place] [id number] 03/28/2025 Naheed Arteaga Plan Of Treatment Next Appt Details Provider Name:Naheed Arteaga, 09/14/2025 02:00:00 PM, [address], [place], [id number], Progress Notes * Gilmer SMITHMercedesOB: 7 (60 yo F)Acc No.[id number]:03/28/2025 Medical Note Patient: Dena STEENKiley MOREL :?Naheedtai Arteaga, MDDOB:1965???Age:59 Y???Sex: FemaleDate:03/28/2025Phone:[phone]:0 [facility], [place], [place] Subjective: * Chief Complaints: * 1 . Depression. * Medical History: Objective: * Vitals: Assessment: Plan: * Treatment: * Billing Information: * Visit Code: * Procedure Codes: * Electronic signature of Naheed Arteaga MD on 09/05/2025 at 04:45 AM ESTSign off status: Pending * Provider: Ryne Arteaga MD Date: 0 03/28/2025 Generated for Printing/Faxing/eTransmitting on:?09/05/2025 04:45 AM EST
--- OUTSIDE RECORDS SUMMARY | 2025-09-01 10:20 | XMS_ITS | Encounter Summary ---
Author Organization [facility] tem Address [facility] [place] [address] [place] [address] Care Team Providers Care Zipper Machine Operator Name Role Phone Services, [facility] Primary Care Provider Encounter Details DateTypeDepartmentCare Team (Latest Contact Info)Vcarevhovwp82/13/2025 10:20 AM EST - 09/01/2025 11:59 PM ESTHospital Encounter [facility] - [facility] [address] [place] [address] Visit for screening mammogram Discharge Disposition: Home Social History Tobacco UseTypesPacks/DayYears UsedDateSmoking Tobacco: NeverSmokeless Tobacco: NeverAlcohol UseStandard Drinks/WeekCommentsNever0 (1 standard drink = 0.6 oz pure alcohol)AUDIT-CAnswerDate RecordedFrequency of Alcohol ConsumptionNever 03/17/2019Average Number of DrinksNot on file03/17/2019Frequency of Binge DrinkingNot on file03/17/2019ChildcareAnswerDate RecordedChildcareUnknown 03/22/2019EmploymentAnswerDate OieveaipHcvlkwlhnoUmvuskv47/03/2019Purpose - Life AnswerDate RecordedPurpose and direction in vzrnOtkyrky30/11/2021 CommentsNoSex and Gender InformationValueDate RecordedSex Assigned at Vzawce0701/17/2023 8:56 AM EDTLegal EueNfrnny54/06/2015 11:26 AM EDTGender CwrsspzcAtwkea73/31/2023 8:56 AM EDTSexual OrientationDon't know01/17/2023 8:56 AM EDTdocumented as of this encounter Last Filed Vital Signs Vital SignReadingTime TakenCommentsBlood Pressure--Pulse--Temperature-- Respiratory Rate--Oxygen Saturation--Inhaled Oxygen Concentration--Utsqfu660.3 kg (252 lb)09/01/2025 10:32 AM ZWFDzquia531.6 cm (5' 6 )09/01/2025 10:32 AM EST Body Mass Index40.6709/01/2025 10:32 AM ESTdocumented in this encounter Medications at Time of Discharge MedicationSigDispense QuantityRefillsLast FilledStart DateEnd Date cholecalciferol, vitamin D3, 2,000 units capsule Take 2,000 Units by mouth daily. gabapentin (NEURONTIN) 300 mg capsule Take 300 mg by mouth 3 (three) times a day. ibuprofen (ADVIL,MOTRIN) 800 mg tablet Take 1 tablet (800 mg total) by mouth 3 (three) times a day. 30 tablet 02/24/2019 lisinopril (PRINIVIL,ZESTRIL) 10 mg tablet Take 10 mg by mouth daily. omeprazole (PriLOSEC) 20 mg capsule Take 20 mg by mouth 2 (two) times a day.documented as of this encounter Plan of Treatment Not on file documented as of this encounter Procedures Procedure NamePriorityDate/TimeAssociated DiagnosisCommentsMAMM SCREENING BILATERAL W BMIRfdknlk47/13/2025 10:46 AM EST Visit for screening mammogram documented in this encounter Results * Mammography screening bilateral with CAD (09/01/2025 10:46 AM EST)Anatomical RegionLateralityModalityBreastBilateralMammographySpecimen (Source)Anatomical Location / LateralityCollection Method / VolumeCollection TimeReceived Time 09/02/2025 10:29 AM EST Narrative 09/02/2025 10:31 AM EST KILEY REYES 1965 [id number] EXAM: MAMM SCREENING BILATERAL W CAD, 09/01/2025 10:20 AM CLINICAL INDICATIONS: Screening, Visit for screening mammogram COMPARISON: 06/29/2024 TECHNIQUE: Bilateral digital tomosynthesis MLO and CC views of the breasts were obtained, with creation of synthetic 2D views. Computer aided detection was utilized. FINDINGS: There are scattered areas of fibroglandular density. Benign bilateral calcifications. Stable focal asymmetry upper outer right breast. No new mass density architectural distortion or microcalcification. IMPRESSION: Benign findings BI-RADS: BI-RADS 2 - Benign RECOMMENDATION: ??Routine screening mammogram in 1 year. RISK ASSESSMENT: TC Lifetime risk: 6.9 %. The patient's reported personal and family medical history was used calculate their Tyrer-Cuzick lifetime risk of malignancy. Scores less than 20% are not considered high risk per ACR guidelines and patient should continue with the above recommendation. Finalized by Andre Sheikh MD on 09/02/2025 10:31 AM 2 b MAMM 1 YR [facility] Accredited Performing Facility: [facility] - Mammography/DEXA Imaging [address] [facility] [address] Procedure Note Andre Sheikh MD - 09/02/2025 KILEY REYES 1965 [id number] EXAM: MAMM SCREENING BILATERAL W CAD, 09/01/2025 10:20 AM CLINICAL INDICATIONS: Screening, Visit for screening mammogram COMPARISON: 06/29/2024 TECHNIQUE: Bilateral digital tomosynthesis MLO and CC views of the breastswere obtained, with creation of synthetic 2D views. Computer aideddetection was utilized. FINDINGS: There are scattered areas of fibroglandular density. Benign bilateral calcifications. Stable focal asymmetry upper outer rightbreast. No new mass density architectural distortion ormicrocalcification. IMPRESSION: Benign findings BI-RADS: BI-RADS 2 - Benign RECOMMENDATION: Routine screening mammogram in 1 year. RISK ASSESSMENT: TC Lifetime risk: 6.9 %. The patient's reported personal and family medical history was usedcalculate their Tyrer-Cuzick lifetime risk of malignancy. Scores less than20% are not considered high risk per ACR guidelines and patient shouldcontinue with the above recommendation. Finalized by Andre Sheikh MD on 09/02/2025 10:31 AM 2 b MAMM 1 YR [facility] Accredited Performing Facility: [facility] Mammography/DEXA Imaging [address] [facility] [place] [address] Authorizing ProviderResult TypeResult StatusRamsha Chandler MDIMG MAMMOGRAPHY ORDERABLESFinal Result documented in this encounter Visit Diagnoses Diagnosis Visit for screening mammogram documented in this encounter Care Teams Team MemberRelationshipSpecialtyStart DateEnd Date Services, [facility] [address] [place], [place] PCP - GeneralFamily Medicine01/30/24documented as of this encounter
[2025-09-05 04:10] VITALS: PULSE 86; TEMP 36.4; O2SAT 97; BMI 41.2
[2025-09-05 04:15] VITALS: PULSE 87
[2025-09-05 04:20] VITALS: BP 158/86
--- NOTE | 2025-09-05 04:35 | XR_ITS ---
The [address] [address] Patient Name: CECE SMITH MRN: [id number] date: 1965 Sex: F Assigned Patient Location: ER Current Patient Location: Accession/Order Number: [id number] Exam Date: 09/05/2025 04:40 Report Date: 09/05/2025 08:21 At the request of: MARCO SHORT MD Procedure: XR chest 1V PORTABLE AP ERECT CHEST 0430 hours CLINICAL HISTORY: Left upper chest pain COMPARISON: None Assessment is slightly limited by large body habitus. The heart is top normal in size. There is no vascular congestion. Basilar atelectasis and/or scarring is possible, particularly on the left. No other consolidation is seen. There is no effusion or pneumothorax. The osseous structures are intact. Mild endplate spurring is visualized. There is prior cervical fusion. XR/XR chest 1V IMPRESSION: POTENTIAL BASILAR ATELECTASIS AND/OR SCARRING. NO OTHER ACUTE FINDINGS Impression dictated by: Aniyah Holbrook M.D. 09/05/2025 8:21 AM Dictation Location: [place] [address] Electronically authenticated by: [id number] Y Date: 09/05/2025 08:21
--- NOTE | 2025-09-05 04:35 | ECG_ITS ---
[facility] Test Date: 2025-09-05 Pat Name: CECE SMITH Department: Room: - Gender: Female [employer]visor: : [id number] Requested By: [id number] Order Number: [id number] Reading MD: SADI DURHAM M.D. Measurements Intervals [place] Rate: 87 P: 53 CA: 166 QRS: 5 QRSD: 96 T: 40 QT: 364 QTc: 409 Interpretive Statements 1100 Sinus rhythm 9110 normal ECG No previous ECG available for comparison Electronically Signed On 09-05-2025 5:55:00 EST by SADI DURHAM M.D.
--- NOTE | 2025-09-05 04:36 | ED.GENADUL1 ---
HPI HPI - General Adult General Chief complaint: Chest Pain Stated complaint: CHEST PAIN Time Seen by Provider: 09/05/25 04:31 Source: patient Mode of arrival: Wheelchair Limitations: no limitations History of Present Illness HPI narrative: 60-year-old female presented to the emergency department for a chief complaint of chest pain. It started 1 hour ago and woke her up from sleep. It is on the left side of her chest and it feels like it is pulsatile to her and it has been continuous. No unusual activity or injury. No fever or cough and the pain does not seem to radiate. Related Data Home Medications ?Medication ?Instructions ?Recorded ?Confirmed hydrochlorothiazide 12.5 mg capsule 12.5 mg PO DAILY 09/05/25 09/05/25 rosuvastatin 5 mg tablet 5 mg PO DAILY 09/05/25 09/05/25 tramadol 50 mg tablet 50 mg PO Q12H PRN pain 09/05/25 09/05/25 Allergies Allergy/AdvReac Type Severity Reaction Status Date / Time zolpidem (From Ambien) Allergy Mild Hives Verified 09/05/25 04:18 acetaminophen (From Vicodin) AdvReac Mild Nausea Verified 09/05/25 04:18 hydrocodone AdvReac Mild Nausea Verified 09/05/25 04:18 Opioid HPI Opioid Management Most Recent Opioid Data: Last Pain Scale 8 Today, 05:11 Last MAR Pain Assessment Today, 05:07 Review of Systems ROS Narrative A ten point review of systems is negative except as noted above. PFSH PFSH Social History Little interest or pleasure in doing things: not at all Feeling down, depressed, or hopeless: not at all Exam Narrative Exam Narrative: Nurses note and vital signs reviewed General:The patient appears in no apparent distress. Skin:Warm, dry, no pallor noted.There is no rash noted. Head:Normocephalic, atraumatic Eye: Normal conjunctiva, no drainage Ears, Nose, Mouth, and Throat: oral mucosa is moist. Nares patent. Cardiovascular:Regular Rate and Rhythm. She has tenderness on the left side of her chest which reproduces her pain. Respiratory:Patient is in no distress, no accessory muscle use, lungs are clear to auscultation, no wheezing, rales or rhonchi Back:non-tender GI: Soft and nontender Musculoskeletal: The patient has no evidence of calf tenderness, no pitting edema, symmetrical pulses noted bilaterally Neurological:A&O, normal speech Psychiatric:Cooperative Constitutional Vital Signs, click to edit/add: Last Vital Signs Temp 97.5 F L 09/05/25 04:10 Pulse 78 09/05/25 05:49 Resp 14 09/05/25 05:49 BP 142/100 H 09/05/25 05:49 Pulse Ox 98 09/05/25 05:49 O2 Del Method Room Air 09/05/25 05:49 Course Vital Signs Vital signs: Vital Signs Temperature 97.5 F L 09/05/25 04:10 Pulse Rate 86 09/05/25 04:10 Respiratory Rate 14 09/05/25 04:10 Pulse Oximetry 97 09/05/25 04:10 Oxygen Delivery Method Room Air 09/05/25 04:10 Temperature 97.5 F L 09/05/25 04:10 Pulse Rate 78 09/05/25 05:49 Respiratory Rate 14 09/05/25 05:49 Blood Pressure 142/100 H 09/05/25 05:49 Pulse Oximetry 98 09/05/25 05:49 Oxygen Delivery Method Room Air 09/05/25 05:49 Medical Decision Making MDM Narrative Medical decision making narrative: Her workup is negative, including 2 troponins. Her pain is reproducible and she feels improved after being given IV Toradol. At this point I have no suspicion of cardiac etiology. Treatment diagnosis and follow-up were discussed with the patient. Differential Diagnosis Differential Diagnosis: [place], chest wall pain Lab Data Lab results reviewed: Yes I reviewed the patient's lab results Labs: Lab Results 09/05/25 09/05/25 Range/Units 04:21 05:16 WBC 8.4 (4.0-11.0) 10^3/uL RBC 4.60 (4.20-5.40) 10^6/uL Hgb 13.0 (12.0-16.0) g/dL Hct 38.9 (36.0-48.0) % MCV 84.6 (81.0-99.0) fL MCH 28.3 (26.7-34.0) pg MCHC 33.4 (29.9-35.2) g/dL RDW 12.5 (11.0-15.0) % Plt Count 237 (150-450) 10^3/uL MPV 10.8 (9.5-13.5) fL Neut % (Auto) 49.2 (43.0-75.0) % Lymph % (Auto) 41.4 (20.5-60.0) % [place] % (Auto) 7.0 (1.7-12.0) % Eos % (Auto) 1.4 (0.9-7.0) % Baso % (Auto) 0.6 (0.2-2.0) % Neut # (Auto) 4.1 (1.4-6.5) 10^3/uL Lymph # (Auto) 3.5 (1.2-3.8) 10^3/uL [place] # (Auto) 0.6 (0.3-0.8) 10^3/uL Eos # (Auto) 0.1 (0.0-0.7) 10^3/uL Baso # (Auto) 0.1 (0.0-0.1) 10^3/uL Abs Immat Gran (auto) 0.03 (0.00-0.03) 10^3/uL Imm/Tot Granulo (auto) 0.4 (0.0-0.5) % Sodium 142 (136-145) mmol/L Potassium 3.9 (3.5-5.1) mmol/L Chloride 106 (98-107) mmol/L Carbon Dioxide 28.7 (21.0-32.0) mmol/L Anion Gap 11.2 BUN 16.0 (7.0-18.0) mg/dL Creatinine 0.84 (0.55-1.02) mg/dL Est GFR ( Amer) >60 (>=60 mL/min/1.73m^2) Est GFR (Non-Af Amer) >60 (>=60 mL/min/1.73m^2) BUN/Creatinine Ratio 19.0 Glucose 111 H (74-106) mg/dL Calcium 9.1 (8.5-10.1) mg/dL Troponin I High Sens 4.6 4.4 (4.0-51.3) pg/mL Imaging Data Chest x-ray: My impression: No acute findings ECG Data Attestation: I personally reviewed and interpreted this ECG as follows: (EKG on my interpretation shows normal sinus rhythm with rate of 87 and no acute change) Discharge Plan Discharge Chief Complaint: Chest Pain Clinical Impression: Chest pain Patient Disposition: Home, Self-Care Time of Disposition Decision: 05:49 Condition: Good Mode of Transportation: Private Vehicle Prescriptions / Home Meds: No Action hydrochlorothiazide 12.5 mg capsule 12.5 mg PO DAILY rosuvastatin 5 mg tablet 5 mg PO DAILY tramadol 50 mg tablet 50 mg PO Q12H PRN (Reason: pain) Print Language: Kyrgyz Instructions: Chest Pain (ED), Chest Wall Pain (ED) Referrals: Maddy Griffith [Primary Care Provider] - 1 week
[2025-09-05 04:42] LABS: Hematocrit 38.9 % (36.0-48.0); Hemoglobin 13.0 g/dL (12.0-16.0); Immature Granulocytes Abs Auto 0.03 10^3/uL (0.00-0.03); Immature Granulocytes Pct Auto 0.4 % (0.0-0.5); Lymphocytes Absolute Auto 3.5 10^3/uL (1.2-3.8); Mean Corpuscular HGB Conc 33.4 g/dL (29.9-35.2); Mean Corpuscular Hemoglobin 28.3 pg (26.7-34.0); Mean Corpuscular Volume 84.6 fL (81.0-99.0); Platelet Count 237 10^3/uL (150-450); Red Blood Count 4.60 10^6/uL (4.20-5.40); White Blood Count 8.4 10^3/uL (4.0-11.0)
--- OUTSIDE RECORDS SUMMARY | 2025-09-05 04:44 | XMS_ITS | CCD ---
Author Organization [facility] Inform ion [facility] Care Team Providers Care Glass Carrier Name Role Phone NURIS [phone] UNKNOWN Unavailable Unavailable Alahmad, Alaa Unavailable Unavailable Alahmad, Alaa Unavailable Unavailable CARONE, JUVENAL L Unavailable Unavailable LOPEZ, NURIS Unavailable Unavailable O'DARIO HOOKER, CHOLO Unavailable Unavailabl e LOPEZ, NURIS Unavailable Unavailable O'DARIO HOOKER, CHOLO Unavailable Unavailabl e LOPEZ, NURIS Unavailable Unavailable Physician, No Pcp Primary Care Provider Unavaila ble JANICE ELLIOTT Admitting Unavailable JANICE ELLIOTT Attending Unavailable PHYSICIAN, NO PCP Primary Care Unavailable JANICE ELLIOTT Referring Unavailable PHYSICIAN, NO PCP Primary Care Unavailable KARASIK ., DR DURAN Consulting Unavailabl e KARASIK ., DR DURAN Attending Unavailabl e KARASIK ., DR DURAN Admitting Unavailabl e REQUEST, NONE LISTED Primary Care Unavaila ble KARASIK ., DR DURAN Consulting Unavailabl e REQUEST, DR NONE LISTED Primary Care Unavaila ble KARASIK ., DR DURAN Admitting Unavailabl e KARASIK ., DR DURAN Attending Unavailabl e ZIEBER, DR EWA Michele Consulting Unavailable MISC, DR DOHERTY Admitting Unavailable MISC, DR DOHERTY Attending Unavailable MISC, DR DOHERTY Consulting Unavailable REQUEST, NONE LISTED Primary Care Unavaila ble ZIEBER, DR EWA Michele Consulting Unavailable MARIA ISABEL ., CATHERINE Admitting Unavailable REQUEST, NONE LISTED Primary Care Unavaila ble MARIA ISABEL ., CATHERINE Attending Unavailable MARIA ISABEL ., CATHERINE Consulting Unavailable KARASIK ., DR DURAN Consulting Unavailabl e KARASIK ., DR DURAN Admitting Unavailabl e KARASIK ., DR DURAN Attending Unavailabl e REQUEST, DR NONE LISTED Primary Care Unavaila ble MISC, DR DOHERTY Admitting Unavailable MISC, DR DOHERTY Attending Unavailable MISC, DR DOHERTY Consulting Unavailable REQUEST, DR NONE LISTED Primary Care Unavaila kassidy Hebert Jr, MD, Jet Unavailable Unavailable JET HEBERT JR Referring Unavailable SERVICES, [facility] Care Unava ilable JET HEBERT JR Referring Unavailable SERVICES, [facility] Primary Care Unava ilable JET HEBERT JR Referring Unavailable SERVICES, [facility] Primary Care Unava enrrique Hebert Jr, MD, Jet Unavailable Unavailable Farias MD, Stacy Unavailable Unavailable Farias , Stacy Unavailable Unavailable Farias , Stacy Unavailable Unavailable Farias MD, Stacy Unavailable Unavailable Farias MD, Stacy Unavailable Unavailable Farias MD, Stacy Unavailable Unavailable Farias MD, Stacy Unavailable Unavailable Farias, Stacy Attending Unavailable Farias, Stacy Referring Unavailable Marina, Michelle Primary Care Unavailable Farias, Stacy Attending Unavailable Hunter Carlson Referring Unavailable Marina, Michelle Primary Care Unavailable Farias, Stacy Attending Unavailable Farias, Stacy Referring Unavailable Marina, Michelle Primary Care Unavailable Farias, Stacy Attending Unavailable Farias, Stacy Referring Unavailable Marina, Michelle Primary Care Unavailable Farias, Stacy Attending Unavailable Farias, Stacy Referring Unavailable Marina, Michelle Primary Care Unavailable Unallocatbridgette MAST, Noms Provider Primary Care Provi alisha Naheed Arteaga MD Primary Care Provider [phone] MARCIE FERMIN Attending Unavailable MARCIE FERMIN Referring Unavailable KE THOMAS Attending Unavailable FARIAS, STACY Referring Unavailable Unavailable Primary Care Provider UnavailDAV [place] Attending Unavailable Allergies Allergy ClassificationReported Allergen(s)Allergy TypeDate of OnsetReaction(s) Facility (2 sources)acetaminophen / HYDROcodone; Translations: [Vicodin]Drug Allergy 73-64-6087[facility]yzpvReg[facility] (2 sources)zolpidem; Translations: [Ambien]Drug Yshoarp08-14-1570CORRerixpReg[facility] (8 sources)Acetaminophen / HYDROcodone; Translations: [HYDROCODONE-ACETAMINOPHEN]Drug Nweietl68-39-6226Jkxf, GI intolerance, GI Upset [facility] (8 sources)zolpidem; Translations: [ZOLPIDEM]Drug Tnulaxy41-22-4684Xxcs, Hives [facility] (9 sources)Acetaminophen; Translations: [acetaminophen]Drug Tnaaojz17-14-4119 [facility] (9 sources)HYDROcodone; Translations: [HYDROCODONE BITARTRATE]Drug Allergy 08-06[facility] [place] (14 sources)oxyCODONE; Translations: [oxycodone]Drug Rkdcdnk80-21-7678UK intolerance, Nausea/[facility]iting[facility] (9 sources)zolpidem; Translations: [ZOLPIDEM TARTRATE]Drug Sixgtzb68-84-5811 [facility] Medications Current Medications MedicationDrug Class(es)DatesSig (Normalized)Sig (Original)acetaminophen 325 mg / oxyCODONE hydrochloride 5 mg oral tablet (11 sources)Opioid AgonistStart: 34-46-9769dbliiiljc-acetaminophen 5 mg-325 mg tablet - ActiveStart: 07-24-2022 End: 93-97-4561fvjw 1-2 tablets by mouth every four to six hours as needed for painoxyCODONE-acetaminophen (PERCOCET) 5-325 mg per tablet Take 1-2 tablets by mouth every 4-6 hours asneeded for pain. 56 tablet 0 07/24/2022 07/31/2022 ActiveStart: 07-24-2022 End: 59-44-7863izyl 1 tablet by mouth every six hours as neededoxyCODONE- acetaminophen (PERCOCET) 5-325 mg per tablet 1 zetjpp53 hr buPROPion hydrochloride 150 mg extended release oral tablet (3 sources)AminoketoneStart: 76-10-3298gobh 1 tablet by mouth once daily in the morningbuPROPion XL (Wellbutrin XL) 150 mg 24 hr tablet Take 1 tablet (150 mg) by mouth once daily in the morning. 03/15/2025 ActiveStart: 44-27-8151hdHWVIirt XL (Wellbutrin XL) 150 MG 24 hr tablet 1 time each day at the same time. 12/30/2024 ActivehydroCHLOROthiazide 12.5 mg oral capsule (3 sources)Thiazide DiureticStart: 21-09-5352meqfnIQLARZzjxiyvoe (Microzide) 12.5 mg capsule 02/06/2025 Activelisinopril 10 mg oral tablet (9 sources)Angiotensin Converting Enzyme InhibitorStart: 48-89-7359bxpc 1 tablet by mouth once dailylisinopril 10 mg tablet take 1 tablet by mouth once daily - Activemeloxicam 15 mg oral tablet (20 sources)Nonsteroidal Anti-inflammatory DrugStart: 02-09-2025 End: 80-34-5821dhvb 1 tablet by mouth in the morningmeloxicam (Mobic) 15 mg tablet Take 1 tablet (15 mg) by mouth early in the morning.. 02/09/2025 Active Start: 27-04-3729fwqp 1 tablet by mouth once daily at mealtimemeloxicam 15 mg tablet take 1 tablet by oral route every morning with food- DO NOT TAKE STEROIDS - Activemethocarbamol 750 mg oral tablet (4 sources)Muscle RelaxantStart: 22-03-5112etvg 1 tablet by mouth twice daily as needed for muscle spasmsmethocarbamol (Robaxin) 750 mg tablet Take 1 tablet (750 mg) by mouth 2 times a day as needed for muscle spasms. 02/14/2025 ActiveStart: 07-24-2022 End: 33-67-0603flozpfvtyncnV (ROBAXIN) injection 1,000 mgNaloxone (1 source)Opioid AntagonistStart: 45-47-2420cogtynom (Narcan) 4 mg/0.1 mL nasal spray Indications: Cervical post-laminectomy syndrome , Cervical spondylosis without myelopathy Administer 1 spray (4 mg) into one nostril if needed for opioid reversal. May repeat every 2-3 minutes if needed, alternating nostrils, until medical assistance becomes available. 2 each 08/17/2025 Activeondansetron 8 mg disintegrating oral tablet (9 sources)Serotonin-3 Receptor AntagonistStart: 01-73-5286bxoynmpzhze 8 mg disintegrating tablet dissolve 1 tablet ON TONGUE every 4 hours if needed - Activerosuvastatin calcium 5 mg oral tablet (3 sources)HMG-CoA Reductase InhibitorStart: 72-13-9322amilkhywdknd (Crestor) 5 mg tablet 02/06/2025 ActivetiZANidine 4 mg oral tablet (12 sources)Central alpha-2 Adrenergic AgonistStart: 07-24-2022 End: 44-89-9695zblfzmrypo 4 mg tablet - Active End: 27-78-1821fsap 1 capsule by mouth at bedtimetiZANidine (ZANAFLEX) 4 mg capsule Take 4 mg by mouth at bedtime. 0 07/24/2022 Discontinued (Reorder) traMADol hydrochloride 50 mg oral tablet (1 source)Opioid AgonistStart: 08-17-2025 End: 59-75-6481ykxn 1 tablet by mouth every twelve hours for paintraMADol (Ultram) 50 mg tablet Indications: Cervical post-laminectomy syndrome , Cervical spondylosis without myelopathy Take 1 tablet (50 mg) by mouth every 12 hours if needed for moderate pain (4 -6). 60 tablet 08/17/2025 09/16/2025 Active Completed/Discontinued Medications MedicationDrug Class(es)DatesSig (Normalized)Sig (Original)acetaminophen 500 mg oral tablet (1 source) End: 97-60-7604imjv 2 tablets by mouth every six hours as neededacetaminophen (TYLENOL) 500 mg tablet Take 1,000 mg by mouth every 6 (six) hours if needed for mildpain. 0 07/24/2022 Discontinued (Stop Taking at Discharge)bisacodyl 10 mg rectal suppository (1 source)Stimulant LaxativeStart: 07-24-2022 End: 30-01-2613yomp 10 mg rectal route once daily as needed for remygjwptnwg22 mg, rectal, Daily PRN, constipation, Starting on Fri07/24/22 at 1226 2nd line for treatment of constipation - give scheduled (in addition to 1st line agent) if no bowel movement in past 48 hourscalcium chloride 0.0014 meq/ml / potassium chloride 0.004 meq/ml / sodium chloride 0.103 meq/ml / sodium lactate 0.028 meq/ml injectable solution (1 source)Start: 07-24-2022 End: 22-55-7791mdsfrdjs Ringer's infusionceFAZolin (ANCEF) 2 gram/20 mL IV syringe 2 g (1 source)Start: 07-24-2022 End: g, intravenous, Administer over 3 Minutes, Every 8 hours, First dose on Fri07/24/22 at 1245, For 2 doses, Recovery & On Unit Indication: Prophylaxis-SurgicaldiazePAM 5 mg/ml injectable solution (1 source)BenzodiazepineStart: 07-24-2022 End: 98-22-9071ftehsALS (VALIUM) injection 5 mgStart: 07-24-2022 End: 30-14-0700mvsqtCOS (VALIUM) injection 5 mgdocusate sodium 50 mg / sennosides, long-term 8.6 mg oral tablet (1 source)Start: 07-24-2022 End: 22-02-1103oies 1 tablet by mouth twice daily for constipation1 tablet, oral, 2 times daily, First dose on Fri07/24/22 at 1245, Recovery & On Unit Bowel Regimen - for prevention of constipationgabapentin 600 mg oral tablet (11 sources)Anti-epileptic AgentStart: 07-24-2022 End: 00-98-5133nukt 600 mg by mouth every eight mg, oral, Every 8 hours scheduled, First dose on Fri07/24/22 at 1400, Recovery & On UnitStart: 52-21-2698ligt 1 tablet by mouth three times dailygabapentin 600 mg tablet take 1 tablet by mouth three times a day - Active0.5 ml HYDROmorphone hydrochloride 1 mg/ml prefilled syringe (2 sources)Opioid AgonistStart: 07-24-2022 End: 05-92-0879izoc 0.5 mg by mouth every three hours as needed for pain0.5 mg, intravenous, Every 3 hours PRN, severe pain, not controlled by oral narcotics, Starting on Fri07/24/22 at 1225, Recovery & On Unitlabetalol hydrochloride 5 mg/ml injectable solution (1 source)beta-Adrenergic BlockerStart: 07-24-2022 End: 95-74-8873rwovmekiq (NORMODYNE) injection 5 mg10 ml lidocaine hydrochloride 10 mg/ml injection (1 source)Antiarrhythmic, Amide Local AnestheticStart: 07-24-2022 End: 92-71-4550mvnbciywj PF (XYLOCAINE) 1 % injection 0.2 mLmagnesium citrate 58.2 mg/ml oral solution (1 source)Start: 07-24-2022 End: 81-59-6599ahwp 296 mL by mouth once as needed for oahlcuiandhm593 mL, oral, Once as needed, constipation, constipation, Starting on Fri07/24/22 at 1226, For 1 dose 2nd line for treatment of constipation - give scheduled (in addition to 1st line agent) if no bowel movement in past 48 hours. If no bowel movement within 3 hours of magnesium citrate administration, contact provider for further instructions.1 ml methylPREDNISolone acetate 40 mg/ml injection (4 sources)CorticosteroidStart: 02-15-2025 End: 39-66-9930izbstkFRPIOXApnbdy acetate (DEPO-Medrol) injection 40 mgStart: 02-15-2025 End: 10-97-454764 mg, Intra-articular, Once PRN Procedure, Starting on Fri02/15/25 at 1138, For 1 doseondansetron ODT (ZOFRAN-ODT) disintegrating tablet 4 mg (1 source)Start: 07-24-2022 End: 90-13-9712lenpmunnoyl ODT (ZOFRAN-ODT) disintegrating tablet 4 mgoxyCODONE hydrochloride 5 mg oral tablet (1 source)Opioid AgonistStart: 07-24-2022 End: 30-53-0491csqi 10 mg by mouth every four hours as needed for pain10 mg, oral, Every 4 hours PRN, Breakthrough Pain, Starting on Fri07/24/22 at 1225, Recovery & On UnitOxygen Therapy, Adult (2 sources)Start: 07-24-2022 End: 98-09-1043neldqwxkad, Continuous, Starting on Fri07/24/22 at 1245, Recovery & On Unit Device: Nasal Cannula Keep O2 Sat Above: 90%Start: 07-24-2022 End: 48-68-7485Duobws Therapy, Adultpolyethylene glycol 3350 66877 mg powder for oral solution (1 source)Osmotic LaxativeStart: 07-24-2022 End: 06-77-503592 g, oral, Daily, First dose on Fri07/24/22 at 1245 Bowel Regimen - for prevention of constipationProchlorperazine (1 source)PhenothiazineStart: 07-24-2022 End: 85-96-6353tyck 1 tablet by mouth every six hours as neededprochlorperazine (COMPAZINE) tablet 10 hf3386 ml sodium chloride 9 mg/ml injection (2 sources)Start: 07-24-2022 End: 40-57-1346auzw 100 mL intravenously every kpzh634 mL/hr, intravenous, Continuous, Starting on Fri07/24/22 at 1245Start: 07-24-2022 End: 82-85-0626cvlbed chloride 0.9 % flush 10 mL Problems Active Problems Problem ClassificationProblemDateDocumented DateEpisodic/ChronicComplications of surgical procedures or medical care (4 sources)Neck pain; Translations: [Other intraoperative and postprocedural complications and disorders of the musculoskeletal system]Onset: 05-07-2017 62-32-9763RsaevdkwLwiutnszi hypertension (2 sources)Hypertensive disorder; Translations: [Essential (primary) hypertension]Onset: 934646-17-7272LztsazwNpnjjcodzmlot and screening for infectious disease (1 source)Encounter for screening for human papillomavirus (HPV); Translations: [ENC SCREENING HUMAN PAPILLOMAVIRUS]Onset: 33-03-2446YrwyscihXkupg disorders and dislocations; trauma-related (4 sources)Chondromalacia of left patella; Translations: [Chondromalacia patellae, left knee]71-23-7201WzzoxfjTvsd disorders (2 sources)Moderate major depression ; Translations: [Major depressive disorder, single episode, moderate]Onset: 804653-62-0125CjlgwsmHdgylgbbpnib breast conditions (1 source)Solitary cyst of left breast; Translations: [SOLITARY CYST OF LEFT BREAST]Onset: 50-17-1109VacfyqfcUibkyjqttzohex (2 sources)Arthritis; Translations: [Unspecified osteoarthritis, unspecified site]Onset: 821899-01-0398FvsvvmvNsofp aftercare (2 sources)Long-term current use of opiate analgesic drug; Translations: [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]Onset: 714842-85-5358NyshrwtrVoops aftercare (1 source)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; Translations: [care home (current) use of opiate analgesic]Onset: 90-66-8471VabfvnoxElcqx connective tissue disease (20 sources)Arthrodesis statusOnset: 27-20-2277SjclzhggVxreg connective tissue disease (20 sources)Impingement syndrome of left shoulder; Translations: [Impingement syndrome of left shoulder]Onset: 17-76-8926QxeqyxemPqrzr connective tissue disease (20 sources)Other shoulder lesions, left shoulder; Translations: [Other shoulder lesions, left shoulder]Onset: 936691-51-7537NefjqtelPtasg connective tissue disease (20 sources)Bursitis of left shoulderEpisodicOther diseases of veins and lymphatics (1 source)Venous insufficiency (chronic) (peripheral); Translations: [Venous insufficiency (chronic) (peripheral)]Onset: 16-81-1450CvmfemacMqsfi female genital disorders (4 sources)Other specified noninflammatory disorders of vagina; Translations: [OTH SPEC NONINFLAMMATORY D/O VAGINA]Onset: 53-18-6282BqiqrokxFkhey nervous system disorders (20 sources)Carpal tunnel syndrome, left upper limbOnset: 17-25-5846RmjzykdVewco non-traumatic joint disorders (20 sources)Pain in left shoulderOnset: 15-24-2984BdmnrtgsRbteh non-traumatic joint disorders (2 sources)Pain in left knee; Translations: [Pain in joint, lower leg]02-11-2025 EpisodicOther non-traumatic joint disorders (2 sources)Effusion of joint of left knee; Translations: [Effusion, left knee] 04-94-0939WmwxvzcyBohhx screening for suspected conditions (not mental disorders or infectious disease) (8 sources)Other abnormal and inconclusive findings on diagnostic imaging of breast; Translations: [Encounter for screening for malignant neoplasm of cervix] Onset: 69-20-3312IzujldlkIespyoto codes; unclassified (1 source)Asymptomatic menopausal state; Translations: [ASYMPTOMATIC MENOPAUSAL STATE]Onset: 20-56-2221KnuhklmkExozhiia codes; unclassified (1 source)Family history of malignant neoplasm of other genital organs; Translations: [FAM HX MALIG NEOPLSM OTH GENIT ORGN]Onset: 37-19-3111Mksqfqxv Spondylosis; intervertebral disc disorders; other back problems (20 sources)Displacement of cervical intervertebral disc; Translations: [Other cervical disc displacement, unspecified cervical region]Onset: 04-10-2022 Resolved: 08-07-8535KwaiazfFrfrvjyvmde; intervertebral disc disorders; other back problems (20 sources)Radiculopathy, cervical region; Translations: [Cervicalgia]Onset: 80-53-1030ZmbvyagsLsywsli and strains (20 sources)Strain of muscle(s) and tendon(s) of the rotator cuff of left shoulder, initial encounter; Translations: [Strain of muscle, fascia and tendon at neck level, initial encounter]Onset: 514709-98-1144RttigxduCynwxdzgnkug (2 sources)Effusion of joint of left bami22-36-5903Rjkjxbpgilom (2 sources)Med RefillOnset: 06-08-2025 Past or Other Problems Problem ClassificationProblemDateDocumented DateEpisodic/ChronicE Codes: Adverse effects of medical drugs (1 source)Adverse effect of other opioids, initial encounter; Translations: [ADVERSE EFF OTH OPIOIDS INITIAL ENC]Onset: 01-06-5538WflstbujYckegs and vomiting (4 sources)Nausea with vomiting, unspecified; Translations: [NAUSEA WITH VOMITING UNSPECIFIED]Onset: 20-53-4669FmljzfuzKvtym aftercare (1 source)Other retirement (current) drug therapy; Translations: [OTH 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 PROCESSOR 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 DRUG THERAPY]Onset: 03-36-0002YolosxwvNczyglfmmbqi (9 sources)EMG/NCS (chief complaint)Onset: 38-27-4335Cevfjzvuzqcp (1 source)Onset: Results Test NameValueInterpretationReference RangeFacilityDRUG MONITOR, BENZO, QN, URINEon 00-99-6128FzkplhjqahmbuteuyfuxftZpkngvpeGdnazw<25[facility] Comment on above:Performed By: #### 87774, 18760, 50221, 47162, 85684, 84891, 66063, 01321 #### [facility] [address], [address] [place] [address] Social Worker Clinical: Mack Magdaleno MDAlphahydroxymidazolamNegativeNormal<50[facility] DiagnosticsComment on above:Performed By: #### 10562, 45583, 02134, 14406, 86216, 76485, 84102, 07736 #### [facility] [address], [address] [place], [place] [id number] Social Worker Clinical: Mack Magdaleno MDAlphahydroxytriazolamNegativeNormal<50[facility] DiagnosticsComment on above:Performed By: #### 61626, 39583, 52935, 53032, 61643, 51797, 28789, 18067 #### [facility] of [address], [address] [place] [address] Social Worker Clinical: Mack Magdaleno MDAminoclonazepamNegativeNormal<25[facility] DiagnosticsComment on above:Performed By: #### 74740, 99506, 21500, 10142, 08359, 07676, 36594, 58064 #### [facility] of [address] , [address] [place] [address] Social Worker Clinical: Mack Magdaleno MDBenzodiazepines CommentsNormalQuest DiagnosticsComment on above:Result Comment: See LDT NotesPerformed By: #### 34950, 58888, 30611, 74638, 85897, 64678, 53274, 29644 #### [facility] of [address], [address] [place] [address] Social Worker Clinical: Mack Magdaleno MDHydroxyethylflurazepamNegativeNormal<50[facility] DiagnosticsComment on above:Performed By: #### 31362, 92211, 95816, 38095, 96659, 50038, 97301, 23941 #### [facility] of [place] [address] Social Worker Clinical: Mack Magdaleno MDLorazepamNegativeNormal<50[facility] Comment on above:Performed By: #### 14701, 47247, 99315, 46303, 61743, 88237, 16552, 56283 #### [facility] of [place] [address] [place] , [address] [place] [address] Social Worker Clinical: Mack Magdaleno MDNordiazepamNegativeNormal<50[facility] Comment on above:Performed By: #### 97463, 29906, 63379, 05588, 48143, 41981, 73209, 75291 #### [facility] of [place] [address] [place] , [address] [place] [address] Social Worker Clinical: Mack Merati MDOxazepamNegativeNormal<50[facility] Comment on above:Performed By: #### 51348, 59954, 72829, 71481, 43522, 56276, 89300, 18140 #### [facility] [place] [address] Social Worker Clinical: Mack Magdaleno MDTemazepamNegativeNormal<50[facility] Comment on above:Performed By: #### 23389, 65821, 64592, 28283, 37064, 99161, 11994, 26853 #### [facility] [place] [address] Social Worker Clinical: Mack Magdaleno MDDRUG MONITOR, COCAINE METAB, W/CONF, URINEon 53-69-2893Csvxroc MetaboliteNegativeNormal<150[facility] DiagnosticsComment on above: Performed By: #### 04254, 30571, 95302, 13752, 67980, 57151, 84676, 29995 #### [facility] [place] [address] Social Worker Clinical: Mack Magdaleno MDDRUG MONITOR, FENTANYL, QN, URINEon 08-23-2025 FentanylNegativeNormal<0.5[facility] DiagnosticsComment on above:Performed By: #### 12995, 24772, 13906, 43268, 46287, 32363, 64742, 10362 #### [facility] [place] [address] Social Worker Clinical: Mack Magdaleno MDFentanyl CommentsNormal[facility] Comment on above:Result Comment: See LDT NotesPerformed By: #### 28571, 87302, 00273, 25137, 34028, 08664, 91082, 96495 #### [facility] [place] [address] Social Worker Clinical: Mack Magdaleno MDNorfentanylNegativeNormal<0.5[facility] Comment on above:Performed By: #### 19724, 65396, 33960, 61768, 40036, 87900, 36774, 91559 #### [facility] of [place] [address] Social Worker Clinical: Mack Magdaleno MDDRUG MONITOR, HEROIN METAB, QN, URINEon AcetylmorphineNegativeNormal<10[facility] DiagnosticsComment on above: Performed By: #### 71725, 41166, 44351, 16127, 48114, 28904, 81537, 03088 #### [facility] of [place] [address] Social Worker Clinical: Mack Magdaleno MDHeroin Metab CommentsNormalQuest [facility] Comment on above:Result Comment: See LDT NotesPerformed By: #### 16241, 23187, 13156, 61943, 76517, 15750, 33612, 23930 #### [facility] of [place] [address] Social Worker Clinical: Mack Magdaleno MDDRUG MONITOR, MARIJUANA METAB, W/CONF, URINEon 51-09-8742Hsdbwgnvh MetaboliteNegativeNormal<20[facility] DiagnosticsComment on above:Performed By: #### 14432, 03520, 60547, 55320, 71628, 87659, 99633, 22547 #### [facility] of [place] [address] Social Worker Clinical: Mack Magdaleno MDDRUG MONITOR, METHADONE METAB, QN, URINEon 93-80-1461LDVVUpkxhsuaJwuqfw<100[facility] DiagnosticsComment on above:Performed By: #### 66550, 21601, 61844, 60945, 71065, 53766, 88865, 73024 #### [facility] of [place] [address] Social Worker Clinical: Mack Magdaleno MDMethadoneNegativeNormal<100[facility] Comment on above:Performed By: #### 45434, 27392, 41883, 08674, 07152, 02397, 66578, 80785 #### [facility] of [address], [address] [place] [address] Social Worker Clinical: Mack Magdaleno MDMethadone CommentsNormal[facility] Comment on above:Result Comment: See LDT NotesPerformed By: #### 13744, 54743, 05177, 34383, 22804, 16723, 73016, 51258 #### [facility] of [place] [address] Social Worker Clinical: Mack Magdaleno MDDRUG MONITOR, OPIATES EXPANDED, QN, URINEon 85-84-6950IdcwsmaIcugvymzDzwjko<50[facility] DiagnosticsComment on above:Performed By: #### 66254, 51720, 94531, 52152, 43216, 71317, 61750, 52690 #### [facility] of [place] [address] Social Worker Clinical: Mack Magdaleno MDHydrocodoneNegativeNormal<50[facility] Comment on above:Performed By: #### 21094, 50142, 12322, 18387, 68759, 99008, 28079, 69909 #### [facility] of [place] [address] Social Worker Clinical: Mack Magdaleno MDHydromorphoneNegativeNormal<50[facility] DiagnosticsComment on above:Performed By: #### 14613, 28250, 63716, 37463, 07353, 97959, 48855, 98246 #### [facility] of [place] [address] Social Worker Clinical: Mack POPEorphineNegativeNormal<50[facility] Comment on above:Performed By: #### 18996, 20672, 38454, 28819, 63213, 63032, 15815, 82816 #### [facility] of [place] [address] Social Worker Clinical: Mack Magdaleno MDNorhydrocodoneNegativeNormal<50Quest DiagnosticsComment on above:Performed By: #### 42366, 07207, 94973, 52941, 35540, 33305, 73557, 57872 #### [facility] [place] [address] Social Worker Clinical: Mack Magdaleno MDNoroxycodoneNegativeNormal<50[facility] Comment on above:Performed By: #### 27128, 61795, 86791, 78197, 19536, 58993, 09491, 76347 #### [facility] [place] [address] Social Worker Clinical: Mack Magdaleno MDOpiates CommentsNormalQuest DiagnosticsComment on above:Result Comment: See LDT NotesPerformed By: #### 00724, 63842, 57598, 02836, 52295, 09607, 00154, 79261 #### [facility] [place] [address] Social Worker Clinical: Mack Magdaleno MDOxycodoneNegativeNormal<50[facility] Comment on above:Performed By: #### 31724, 40792, 92525, 92573, 43758, 68051, 66511, 51265 #### [facility] [place] [address] Social Worker Clinical: Mack Magdaleno MDOxycodone CommentsNormalQuest Diagnostics Comment on above:Result Comment: See LDT NotesPerformed By: #### 30733, 98681, 46734, 65142, 57060, 74523, 60278, 79889 #### [facility] [place] [address] [place] [place] [address] Social Worker Clinical: Mack Magdaleno MDOxymorphoneNegativeNormal<50[facility] Comment on above:Performed By: #### 11698, 21758, 28786, 42183, 21319, 83945, 71623, 83959 #### [facility] [address] [place] [address] Social Worker Clinical: Mack Magdaleno MDDRUG MONITOR, PCP, W/CONF, URINEon 08-23-2025 PhencyclidineNegativeNormal<25Quest DiagnosticsComment on above:Performed By: #### 07810, 84160, 93359, 11080, 64116, 80565, 44546, 15571 #### [facility] of [address], [address] [place] [address] Social Worker Clinical: Mack Magdaleno MDDRUG MONITOR, TRAMADOL, QN, URINEon 08-23-2025 DesmethyltramadolNegativeNormal<100Quest DiagnosticsComment on above:Performed By: #### 53462, 84154, 32279, 33761, 00912, 67236, 90973, 68009 #### [facility] [place] [address] Social Worker Clinical: Mack Magdaleno MDTramadolNegativeNormal<100[facility] Comment on above:Performed By: #### 86093, 04576, 28880, 79642, 49414, 01064, 76842, 41507 #### [facility] [place] [address] Social Worker Clinical: Mack Quezadal CommentsNormalQuest [facility] Comment on above:Result Comment: See LDT NotesPerformed By: #### 24018, 05121, 83369, 73223, 08155, 02179, 88779, 38520 #### [facility] [place] [address] Social Worker Clinical: Mack Magdaleno MDDRUG MONITOR, ZOLPIDEM, QN, URINEon 08-23-2025 ZolpidemNegativeNormal<5Quest DiagnosticsComment on above:Performed By: #### 09950, 79888, 86644, 30922, 85945, 71170, 69904, 64808 #### [facility] of [address], [address] [place] [address] Social Worker Clinical: Mack Magdaleno MDZolpidem CommentsNormalQuest [facility] Comment on above:Result Comment: See LDT NotesPerformed By: #### 42353, 77264, 78842, 47464, 36197, 38715, 33836, 50643 #### [facility] [place] [address] Social Worker Clinical: Mack Magdaleno MDZolpidem MetaboliteNegativeNormal<5Quest DiagnosticsComment on above:Performed By: #### 04687, 06319, 38437, 69617, 30037, 50532, 62333, 46633 #### [facility] [place] [address] Social Worker Clinical: Mack Magdaleno MDDRUG MONITOR,AMPHETAMINE, W/CONF, URINEon 29-03-6567IkfwjrfnnwzxPggkgslvAwdoaa<500Quest DiagnosticsComment on above: Performed By: #### 58215, 26289, 83164, 60233, 55732, 84802, 88602, 67807 #### [facility] [place] [address] Social Worker Clinical: Mack Magdaleno MDDRUG MONITOR,BARBITURATE, W/CONF, URINEon 32-93-8658AttondxkgfomOnwweiucBbrkdf<300Quest DiagnosticsComment on above: Performed By: #### 45345, 63781, 21063, 67493, 41793, 35647, 07305, 16427 #### [facility] [place] [address] Social Worker Clinical: Mack Magdaleno MDDRUG MONITORING TEMPLATEon 38-64-9424Mjnik and CommentsNormalQuest DiagnosticsComment on above:Result Comment: This drug testing is for medical treatment only. Analysis was performed as non-forensic testing and these results should be used only by healthcare providers to render diagnosis or treatment, or to monitor progress of medical conditions. LDT Notes: Confirmation tests were developed and their analytical performance characteristics have been determined by [employer]. It has not been cleared or approved by the FDA. This assay has been validated pursuant to the CLIA regulations and is used for clinical purposes. Healthcare Providers needing Interpretation assistance, please contact us at [phone] ( ) M-F, 8am to 10pm ESTPerformed By: #### 37004, 27374, 31828, 27620, 27218, 78672, 62752, 70786 #### [facility] [place] [address] Social Worker Clinical: Mack Magdaleno MDSPECIMEN VALIDITY TEST PANELon 08-23-2025 Creatinine [Mass/Vol]91.8 mg/dLNormal> or = 20.0Quest DiagnosticsComment on above:Performed By: #### 03763, 67909, 99695, 34053, 60638, 47618, 91546, 20906 #### [facility] [place] [address] Social Worker Clinical: Mack Magdaleno MDOxidantNegativeNormal<200[facility] Comment on above:Performed By: #### 89293, 16500, 40318, 62742, 92744, 05499, 30511, 22836 #### [facility] [place] [address] Social Worker Clinical: Mack Magdaleno [facility] (Bld)5.3 [pH]Normal4.5-9.0[facility] Comment on above:Performed By: #### 91621, 94549, 84620, 47500, 75335, 25617, 52493, 31241 #### [facility] [place] [address] Social Worker Clinical: Mack Magdaleno MDNo Panel Informationon [id number] Goel 02/15/2025 12:48 PM L Inj/Asp: L knee on 02/15/2025 11:38 AM Indications: pain Details: 22 G needle, anterolateral approach Medications: 40 mg methylPREDNISolone acetate 40 MG/ML Outcome: tolerated well, no immediate complications UTILIZING ASEPTIC TECHNIQUE PT GIVEN INJECTION IN LEFT KNEE, NEUROVASC INTACT S/P INJ, TOLERATED WELL Procedure, treatment alternatives, risks and benefits explained, specific risks discussed. Consent was given by the patient. [facility] Knee - left 1 or 2 Viewson [id number] Result: AP and lateral left knee No acute fracture or dislocation Mild effusion Subchondral sclerosis and articular surface flattening of patella Medial and lateral weight bearing joint spaced grossly preserved. Impression: no acute bony process left knee. [facility] HospitalRad[facility] observation (narrative)[facility] MAMM DIAGNOSTIC 3D LETY CADon [id number] MAMM DIAGNOSTIC 3D LETY CADPatient: CECE SMITH Exam Date: 02/18/2023 : 1965 Gender:F Ordering : DR RENEE CORONA . Admission #: [id number] Family : Order #: [id number] CLICK HERE TO VIEW EXAM RADIOLOGY REPORT PROCEDURE: MAMMOGRAM DIAGNOSTIC 3D BILATERAL CAD, 02/18/2023, 12:48 ULTRASOUND BREAST LEFT LIMITED, 02/18/2023, 13:45 COMPARISON: MG MAMM RT DIAG W CAD, 05/14/2019. MAMMO POST BIOPSY RIGHT, 09/15/2018. MG MAMM LETY DIAG W CAD, 09/08/2018. DIGITIZED_MAMMO, 12/07/2008. INDICATIONS: Screening mammography Calculator Name NCI Breast Cancer Risk Assessment Tool 5 Year Breast Cancer Risk 1.60% Lifetime Breast Cancer Risk 10.90% Personal Breast Cancer No Personal Ovarian Cancer No Treatments None Family Cancers Mother with uterine cancer at age 82. LOCATION: [facility] BREAST COMPOSITION: Heterogeneously dense,which may obscure small masses. FINDINGS: DIAGNOSTIC CATEGORY 2--BENIGN FINDING: RIGHT BREAST: No significant suspicious finding. Scattered benign-appearing calcifications are present. No significant change has occurred. LEFT BREAST: A skin surface marker localizes the patient's palpable lump to the posterior lower-outer quadrant. This overlies a rim calcifying chronic oil cyst, also seen on prior studies. Ultrasound evaluation demonstrates a 1.4 x 1.2 x 1.1 cm benign appearing cyst and an adjacent 0.4 cm benign appearing cyst. No suspicious findings. RECOMMENDATIONS: ROUTINE MAMMOGRAM AND CLINICAL EVALUATION IN 12 MONTHS. PLEASE NOTE: A NORMAL MAMMOGRAM DOES NOT EXCLUDE THE POSSIBILITY OF BREAST CANCER. A CLINICALLY SUSPICIOUS PALPABLE LUMP SHOULD BE BIOPSIED. Dictated by: Ewa Woodruff M.D. on 02/18/2023 at 14:57 Approved by: Ewa Woodruff M.D. on 02/18/2023 at 15:04[facility] ACOG PANEL 2: 30 to 65on 02-18-2023..NormalWadsworth-Rittman Hospital Comment on above:Result Comment: Performed at: WBPerformed By: #### ERUR, UMICRO #### [facility] [address] [place] [address] Dr. Otoniel Crowell Gdln ACOG Gdwhmie73-42IjamupKmhEast Ohio Regional HospitalComment on above:Performed By: #### ERUR, UMICRO #### [facility] [address] [place] [address] Dr. Otoniel HardyDIAGNOSIS:CommentOhio Valley Hospital on above: Result Comment: NEGATIVE FOR INTRAEPITHELIAL LESION OR MALIGNANCY. Performed at: WBPerformed By: #### ERUR, UMICRO #### [facility] [address] [place] [address] Dr. Otoniel HardyHPKimberly AptimaNegativeNormalNegativeWadsworth-Rittman HospitalComment on above:Result Comment: This nucleic acid amplification test detects fourteen high-risk HPV types (16,18,31,33,35,39,45,51,52,56,58,59,66,68) without differentiation. Performed at: =GPerformed By: #### ERUR, UMICRO #### [facility] [address] [place] [address] Dr. Otoniel HardyHPKimberly Genotype ReflexCommentNoEast Ohio Regional HospitalComment on above:Result Comment: Criteria not met, HPV Genotype not performed. Performed at: WBPerformed By: #### ERUR, UMICRO #### [facility] [address] [place] [address] Dr. Otoniel HardyMethodology:CommentOhio Valley Hospital on above: Result Comment: This liquid based ThinPrep(R) pap test was screened with the use of an image guided system. Performed at: WBPerformed By: #### ERUR, UMICRO #### [facility] [address] [place] [address] Dr. Otoniel HardyNote:CommentOhio Valley Hospital on above:Result Comment: The Pap smear is a screening test designed to aid in the detection of premalignant and malignant conditions of the uterine cervix. It is not a diagnostic procedure and should not be used as the sole means of detecting cervical cancer. Both false-positive and false-negative reports do occur. . Performed at: WBPerformed By: #### ERUR, UMICRO #### [facility] [address] [place] [address] [address] Otoniel HardyPerformed by:CommentOhio Valley Hospital on above: Result Comment: Bev Grover, Securities Vault Supervisor (ASCP) Performed at: WBPerformed By: #### ERUR, UMICRO #### [facility] [address] [place] [address] Dr. Otoniel HardySpecimen adequacy:CommentOhio Valley Hospital on above:Result Comment: Satisfactory for evaluation. Performed at: WBPerformed By: #### ERUR, UMICRO #### [facility] [address] [place] [address] Dr. Otoniel HardyUS BREAST LEFT LIMITEDon [id number] BREAST LEFT LIMITEDPatient: CECE SMITH Exam Date: 02/18/2023 : 1965 Gender:F Ordering : DR RENEE CORONA . Admission #: [id number] Family : Order #: [id number] CLICK HERE TO VIEW EXAM RADIOLOGY REPORT PROCEDURE: MAMMOGRAM DIAGNOSTIC 3D BILATERAL CAD, 02/18/2023, 12:48 ULTRASOUND BREAST LEFT LIMITED, 02/18/2023, 13:45 COMPARISON: MG MAMM RT DIAG W CAD, 05/14/2019. MAMMO POST BIOPSY RIGHT, 09/15/2018. MG MAMM LETY DIAG W CAD, 09/08/2018. DIGITIZED_MAMMO, 12/07/2008. INDICATIONS: Screening mammography Calculator Name NCI Breast Cancer Risk Assessment Tool 5 Year Breast Cancer Risk 1.60% Lifetime Breast Cancer Risk 10.90% Personal Breast Cancer No Personal Ovarian Cancer No Treatments None Family Cancers Mother with uterine cancer at age 82. LOCATION: [facility] BREAST COMPOSITION: Heterogeneously dense,which may obscure small masses. FINDINGS: DIAGNOSTIC CATEGORY 2--BENIGN FINDING: RIGHT BREAST: No significant suspicious finding. Scattered benign-appearing calcifications are present. No significant change has occurred. LEFT BREAST: A skin surface marker localizes the patient's palpable lump to the posterior lower-outer quadrant. This overlies a rim calcifying chronic oil cyst, also seen on prior studies. Ultrasound evaluation demonstrates a 1.4 x 1.2 x 1.1 cm benign appearing cyst and an adjacent 0.4 cm benign appearing cyst. No suspicious findings. RECOMMENDATIONS: ROUTINE MAMMOGRAM AND CLINICAL EVALUATION IN 12 MONTHS. PLEASE NOTE: A NORMAL MAMMOGRAM DOES NOT EXCLUDE THE POSSIBILITY OF BREAST CANCER. A CLINICALLY SUSPICIOUS PALPABLE LUMP SHOULD BE BIOPSIED. Dictated by: Ewa Woodruff M.D. on 02/18/2023 at 14:57 Approved by: Ewa Woodruff M.D. on 02/18/2023 at 15:04[facility] HospitalXR DEXA BONE DENSITYon [id number] DEXA BONE DENSITYEXAMINATION: XR DEXA BONE DENSITY, 02/18/2023 12:59 PM EDT HISTORY: Menopause present COMPARISON: DEXA bone densitometry 06/04/2019 TECHNIQUE: Dual-energy X-ray absorptiometry (DEXA) bone density study performed for the axial skeleton. FINDINGS: SPINE ANALYSIS: Average bone mineral density is 1.206 g/cm2. T-score (standard deviation relative to young adult mean): 0.1 . -3.3% change since prior study. HIP ANALYSIS: Lowest bone mineral density is within the right femoral neck, 1.027 g/cm2. T-score (standard deviation relative to young adult mean): -0.1 . +0.3% change since prior study. IMPRESSION: [employer] Classification: Normal - Low Fracture Risk Electronically authenticated by: EWA WOODRUFF Date: 2023-02-18 13:51[facility] Memorial HospitalVAGINITIS/VAGINOSIS DNA PROBEon [id number] species NegativeNormalNegativeWadsworth-Rittman HospitalComment on above:Performed By: #### VAGINT #### [facility] [address] [place] [address] Dr. Otoniel Joel vaginalisNegativeNormalNegativeWadsworth-Rittman Hospital Comment on above:Performed By: #### VAGINT #### [facility] [address] [place] [address] Dr. Otoniel Zeng vaginalisNegativeNormalNegativeWadsworth-Rittman Hospital Comment on above:Performed By: #### VAGINT #### [facility] [address] [place] [address] Dr. Otoniel Hurt URINEon [id number] URINEIsolate 1 Escherichia coli >100,000 cfu/mL of ORGANISM 1 Escherichia coli ANTIBIOTIC M.I.C RX STATUS Ampicillin <=2 S F Ampicillin/Sulbactam <=2 S F Piperacillin/Tazobactam <=4 S F Cefazolin <=4 S F Ceftazidime <=1 S F Ceftriaxone <=1 S F Ertapenem <=0.5 S F Imipenem <=0.25 S F Amikacin <=2 S F Gentamicin <=1 S F Tobramycin <=1 S F Ciprofloxacin <=0.25 S F Levofloxacin <=0.12 S F Nitrofurantoin <=16 S F Trimethoprim/Sulfamethoxazole <=20 S FNormalThe [facility] HospitalComment on above:Performed By: #### URCX #### [facility] [address] [place] [address] Dr. Otoniel Graham AUTO DIFFon [id number] #0.0 103/ulNormal0.0-0.1Wadsworth-Rittman HospitalComment on above:Performed By: #### CBC #### [facility] [address] [place] [address] Dr. Otoniel Beckphils/100 WBC (Bld)0.5 %Normal0.2-2.0[facility] Comment on above:Performed By: #### CBC #### [facility] [address] [place] [address] Dr. Frederick ChangEJose Guadalupe #0.1 103/ulNormal0.0-0.7The [facility] Crille HospitalComment on above: Performed By: #### CBC #### [facility] [address] [place] [address] [address] Otoniel Acunaosinophils/100 WBC (Bld)1.0 %Normal0.9-7.0The [facility] Comment on above:Performed By: #### CBC #### [facility] [address] [place] [address] Dr. Otoniel Acunarythrocyte distribution width (RBC) [Ratio]12.5 %Jxdnqn02.0-15.0 The [facility]ille HospitalComment on above:Performed By: #### CBC #### [facility] [address] [place] [address] Dr. Otoniel HardyHematocrit (Bld) [Volume fraction]41.0 %Wjnfvd28.0-48.0The [facility]ille HospitalComment on above:Performed By: #### CBC #### [facility] [address] [place] [address] Dr. Otoniel HardyHemoglobin (Bld) [Mass/Vol]13.4 g/fIChomxn24.0-16.0The [facility] HospitalComment on above:Performed By: #### CBC #### [facility] [address] [place] [address] Dr. Otoniel Daniel #0.03 10e3/ulNormal0.00-0.03The [facility] Cr[facility] HospitalComment on above:Performed By: #### CBC #### [facility] [address] [place] [address] Dr. Otoniel HardyIG %0.4 %Normal0.0-0.5The [facility] Cr[facility] HospitalComment on above: Performed By: #### CBC #### [facility] [address] [place] [address] Dr. Otoniel LoredoMPH #2.1 103/ulNormal1.2-3.8The [facility] HospitalComment on above:Performed By: #### CBC #### [facility] [address] [place] [address] Dr. Otoniel Loredomphocytes/100 WBC (Bld)25.7 %Pxxsda58.5-60.0The [facility] Crille HospitalComment on above:Performed By: #### CBC #### [facility] [address] [place] [address] Dr. Otoniel Boyle DIFF REQNONormalThe [facility] HospitalComment on above: Performed By: #### CBC #### [facility] [address] [place] [address] Dr. Otoniel Vallecillo (RBC) [Entitic mass]27.8 lyLusfnr89.7-34.0The [facility] Crille HospitalComment on above:Performed By: #### CBC #### [facility] [address] [place] [address] Dr. Otoniel Vallecillo (RBC) [Mass/Vol]32.7 g/zFNirtrq43.9-35.2The [facility] HospitalComment on above:Performed By: #### CBC #### [facility] [address] [place] [address] Dr. Otoniel Vallecillo (RBC) [Entitic vol]85.1 yACmkniy59.0-99.0The [facility]ille HospitalComment on above:Performed By: #### CBC #### [facility] [address] [place] [address] Dr. Otoniel Garcia #0.5 103/ulNormal0.3-0.8The [facility] Crille HospitalComment on above:Performed By: #### CBC #### [facility] [address] [place] [address] Dr. Otoniel Liuocytes/100 WBC (Bld)6.2 %Normal1.7-12.0The [facility] Comment on above:Performed By: #### CBC #### [facility] [address] [place] [address] Dr. Otoniel Salguero #5.4 103/ulNormal1.4-6.5The [facility]ille HospitalComment on above:Performed By: #### CBC #### [facility] [address] [place] [address] Dr. Otoniel Childsutrophils/100 WBC (Bld)66.2 %Arldve11.0-75.0The [facility] HospitalComment on above:Performed By: #### CBC #### [facility] [address] [place] [address] Dr. Otoniel Lopez mean volume (Bld) [Entitic vol]10.6 fLNormal9.5-13.5The [facility] HospitalComment on above:Performed By: #### CBC #### [facility] [address] [place] [address] Dr. Otoniel HardyPLT248 103/dbDsgjox129-422Tjo [facility] HospitalComasc[facility] on above: Performed By: #### CBC #### [facility] [address] [place] [address] Dr. Otoniel HardyRBC4.82 106/ulNormal4.20-5.40The [facility] on above:Performed By: #### CBC #### [facility] [address] [place] [address] Dr. Otoniel HardyWBC8.2 103/ulNormal4.0-11.0The [facility] HospitalComment on above: Performed By: #### CBC #### [facility] [address] [place] [address] Dr. Otoniel Avina URINE PROFILEon 70-75-5723Lizpnsyfd Ql (U)NegativeNormal NEGATIVEThe [facility] HospitalComasc[facility] on above:Performed By: #### MAZIN UMICRO #### [facility] [address] [place] [address] Dr. Otoniel HardyClarity (U)CLEARNormalCLEARThe [facility] HospitalComasc[facility] on above: Performed By: #### MAZIN UMICRO #### [facility] [address] [place] [address] Dr. Otoinel Burgos (U)LT. YELLOWNormalYELLOWThe [facility] HospitalComasc[facility] on above:Performed By: #### MAZIN UMICRO #### [facility] [address] [place] [address] Dr. Otoniel KramerCIRO micrscopic examination will be performed if indicated. NormalThe [facility] HospitalComment on above:Performed By: #### EVELIN RETANARO #### [facility] [address] [address] [address] Otoniel HardyGlucose Ql (U)NegativeNormalNEGATIVEWadsworth-Rittman HospitalComment on above:Performed By: #### EVELIN RETANARO #### [facility] [address] [address] [address] Otoniel HardyHemoglobin Ql (U)SMALLAbnormalNEGATIVEWadsworth-Rittman Hospital Comment on above:Performed By: #### EVELIN RETANARO #### [facility] [address] [address] [address] Otoniel HardyKetones Ql (U)NegativeNormalNEGATIVEWadsworth-Rittman HospitalComment on above:Performed By: #### EVELIN RETANARO #### [facility] [address] [place] [address] Dr. Otoniel HardyLEUKOCYTESTRACEAbnormalNEGATIVEThe [facility] HospitalComment on above:Performed By: #### MARIUSZ RETANA #### [facility] [address] [place] [address] Dr. Otoniel HardyNitrite Ql (U)NegativeNormalNEGATIVEWadsworth-Rittman HospitalComment on above:Performed By: #### MARIUSZ RETANA #### [facility] [address] [place] [address] Dr. Otoniel HardypH (U)8.0 [pH]Normal5-9The [facility] HospitalComment on above: Performed By: #### MARIUSZ RETANA #### [facility] [address] [place] [address] Dr. Otoniel HardySPEC GRAVITY1.591Qtvpxp7.005-<=1.025The [facility] HospitalComment on above:Performed By: #### MARIUSZ RETANA #### [facility] [address] [place] [address] Dr. Otoniel HardyUA PROTEINNegativeNormalNEGATIVE/ TRACEThe [facility] Comment on above:Performed By: #### MARIUSZ RETANA #### [facility] [address] [place], [place] [address] Dr. Otoniel Pittman MICRO INDINDICATEDNormalThe [facility] HospitalComment on above: Performed By: #### MARIUSZ RETANA #### [facility] [address] [address] [address] Otoniel Connolly Qn (U)0.2 {Tena'U}/dLNormal0.2 - 1.0The [facility] HospitalComment on above:Performed By: #### MARIUSZ RETANA #### [facility] [address] [place] [address] Dr. Otoniel HardyPROF 14(COMP METB)on 98-88-2554Beivsin [Mass/Vol]3.6 g/dLNormal 3.4-5.0The [facility] HospitalComment on above:Performed By: #### CMP #### [facility] [address] [place] [address] Dr. Otoniel HardyAlbumin/Globulin [Mass ratio]0.9 {ratio}NormalThe [facility] HospitalComment on above:Performed By: #### CMP #### [facility] [address] [place] [address] Dr. Otoniel Ac [Catalytic activity/Vol]117 U/LCritically ixho99-739Kdl [facility] HospitalComment on above:Performed By: #### CMP #### [facility] [address] [place] [address] Dr. Otoniel Moreno [Catalytic activity/Vol]26 U/ILrzwce81-25Rqx [facility] HospitalComment on above:Performed By: #### CMP #### [facility] [address] [place] [address] Dr. Otoniel Saldaña gap [Moles/Vol]11.4 mmol/LNormalThe [facility] on above:Performed By: #### CMP #### [facility] [address] [place] [address] Dr. Otoniel Ordaz [Catalytic activity/Vol]14 U/LCritically noi69-94Rpd [facility] HospitalComment on above:Performed By: #### CMP #### [facility] [address] [address] [address] Otoniel HadryBilirubin [Mass/Vol]0.3 mg/dLNormal0.2-1.0The [facility] Comment on above:Performed By: #### CMP #### [facility] [address] [address] [address] Otoniel HardyCalcium [Mass/Vol]9.1 mg/dLNormal8.5-10.1The [facility] Comment on above:Performed By: #### CMP #### [facility] [address] [address] [address] Otoniel HardyChloride [Moles/Vol]103 mmol/KEobvou01-444Zqy [facility] Comment on above:Performed By: #### CMP #### [facility] [address] [address] [address] Otoniel HardyCO2 [Moles/Vol]27.4 mmol/SJwatit55.0-32.0The [facility] Comment on above:Performed By: #### CMP #### [facility] [address] [address] [address] Otoniel HardyCreatinine [Mass/Vol]0.84 mg/dLNormal0.55-1.02The [facility] HospitalComment on above:Performed By: #### CMP #### [facility] [address] [address] [address] Otoniel AcunaGFR-AF BARBADIAN>60Normal>=60The [facility] HospitalComment on above:Performed By: #### CMP #### [facility] [address] [place] [address] Dr. Otoniel AcunaGFR-NON AF BARBADIAN>60Normal>=60The [facility] HospitalComment on above:Performed By: #### CMP #### [facility] [address] [address] [address] Otoniel HardyGlobulin (S) [Mass/Vol]4.0 g/dLNormalThe [facility] HospitalComment on above:Performed By: #### CMP #### [facility] [address] [address] [address] Otoniel HardyGlucose [Mass/Vol]119 mg/dLCritically blkf91-016Dpn [facility] HospitalComment on above:Performed By: #### CMP #### [facility] [address] [address] [address] Otoniel HardyPotassium [Moles/Vol]3.8 mmol/LNormal3.5-5.1The [facility] Comment on above:Performed By: #### CMP #### [facility] [address] [address] [address] Otoniel HardyProtein [Mass/Vol]7.6 g/dLNormal6.4-8.2The [facility] Comment on above:Performed By: #### CMP #### [facility] [address] [place] [address] Dr. Otoniel HardySodium [Moles/Vol]138 mmol/OFklmxd877-624Uqk [facility] Comment on above:Performed By: #### CMP #### [facility] [address] [place] [address] Dr. Otoniel HardyUrea nitrogen [Mass/Vol]14.0 mg/dLNormal7.0-18.0The [facility] HospitalComment on above:Performed By: #### CMP #### [facility] [address] [place] [address] Dr. Otoniel Burks nitrogen/Creatinine [Mass ratio]16.7 mg/mgNoEast Ohio Regional HospitalComment on above:Performed By: #### CMP #### [facility] [address] [place] [address] Dr. Otoniel Addison MICROSCOPIC ONLYon [id number]J SEEN [facility] HospitalComment on above:Performed By: #### MARIUSZ RETANA #### [facility] [address] [place] [address] Dr. Otoniel Leivactmiroslava identified Cx Nom (U)INDICATEDNoEast [facility] Regional HospitalComment on above:Performed By: #### MARIUSZ RETANA #### [facility] [address] [place] [address] Dr. Otoniel HardyCASTMARIELLE SEENNormalNONE SEENWadsworth-Rittman HospitalComment on above:Performed By: #### MAZIN UMGUSTAVORO #### [facility] [address] [place] [address] Dr. Otoniel HardyCrystals LM Nom (Urine sed)NONE SEENNormalNONE SEENThe [facility] HospitalComment on above:Performed By: #### MAZIN UMICRO #### [facility] [address] [place] [address] Dr. Otoniel Snowthelial cells LM Ql (Urine sed)FEWAbnormalNONE SEEN /RAREThe [facility] HospitalComment on above:Performed By: #### MAZIN UMICRO #### [facility] [address] [place] [address] Dr. Otoniel Win SEENNormalNONE SEENThe [facility] HospitalComasc[facility] on above:Performed By: #### ANETA RETANAICRO #### [facility] [address] [place] [address] Dr. Otoniel HardyZxkrmBQU4-0Xitckfng3-3Clf [facility] HospitalComment on above:Performed By: #### MAZIN UMICRO #### [facility] [address]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 41-02-4391Wlcgmkseo/dLNormal<=7Fisher [facility] [address] Psychiatric CenterComment on above: Performed By: #### 2401511 ####[address] [address]Bml Func Panelon 90-23-6145Zhowwnonv (direct)UTC Abnormal0.0-0.9[facility] Medical CenterComment on above:Result Comment: Result verified by Discern Rule. Performed result UTC (Unable to Calculate) was sent as an Alpha code due the inability to calculate a valid numeric value. Performed By: #### 3275879, 0667169, 75703482, 3612395, 3157920, 97707102, 3503474 ####[facility] [address] [place], [place] [address]Rupuvuk aminotransferase (ALT)27 Int._Unit/LNormal6-46[facility] Medical CenterComment on above:Performed By: #### 2381808, 9989716, 49960866, 1162229, 0273875, 95160128, 0589514 ####[facility] [address] [place], [place] [address]Hfqxqct6.1 g/dLNormal1.1-2.2[facility] Comment on above:Performed By: #### 2371195, 0868621, 01191767, 0419970, 5456068, 75113091, 6358399 ####[address] [place], [place] [address]Itpeyca8.9 g/dLNormal3.3-5.0[facility] Comment on above:Performed By: #### 5700701, 5242210, 94827650, 9804615, 7510799, 38947128, 1116010 ####[address] [address]Joidisfu phosphatase (ALP)94 Int._Unit/ZRsfsss42-26WahpypFisher-Titus Medical CenterComment on above:Performed By: #### 1527165, 2418244, 45995258, 5603464, 7768185, 79464057, 9929750 ####[address] [address]Rzvwgldak aminotransferase (AST)32 Int._Unit/LNormal5-43[facility] CenterComment on above:Performed By: #### 7614470, 3520992, 56550839, 2782240, 9157479, 63036910, 5749603 ####[address] [address]Auqrcoypa (direct)mg/dLNormal0.1-0.4FFort Hamilton HospitalComment on above:Performed By: #### 0310603, 2692192, 40195081, 3439120, 2979200, 18282971, 6799185 ####[address] [address] Bilirubin (total)0.5 mg/dLNormal0.0-1.1FFort Hamilton HospitalComment on above:Performed By: #### 7604975, 1104413, 65741134, 6710947, 3481021, 75847461, 5645959 ####[address] [place], [place] [address]Zxsbmydu5.5 g/dLNormal1.4-4.0[facility] CenterComment on above: Performed By: #### 6520109, 3216835, 14844142, 1623410, 4867750, 82523178, 3871800 ####[address] [place], [place] [address]Labfjbl0.4 g/dLNormal6.0-7.8[facility] Medical CenterComment on above: Performed By: #### 2338674, 0306191, 96510086, 5994901, 1531966, 01858501, 4452938 ####[address] [address]Qcoszq Levelon 42-53-8774Bsdhrq21 unit/FJbhqfx24-32JpgpjmFisher-Titus Medical CenterComment on above:Performed By: #### 9738140, 5885319, 80132549, 9005541, 7016090, 45091330, 3309117 ####[address] [address]JG & PTTon 90-68-9192hRYU74.1 second(s)Bqgthe47.1-36.5 [facility] Medical CenterComment on above:Result Comment: Heparin therapeutic range (represented by Anti-Factor Xa activity of 0.2 - 0.4 U/mL) corresponds to PTT of 53.9 - 87.4 sec.Performed By: #### 6628438, 3161236, 46330584, 0111851, 5085769, 04111614, 9863966 ####[address] [address]KGJ Coag RelTime (PPP)1.0 {INR}Invalid Interpretation Code [facility] Medical CenterComment on above:Result Comment: INR results are specifically intended to assess patients stabilized on long-term Anticoagulation therapy suggested INR?s ?Less Intensive Anticoagulation? 2.0 ? 3.0Conventional Range 3.0 ? 4.5Performed By: #### 6438372, 5124074, 43171367, 6428770, 1900830, 50340521, 6313837 ####[address] [place], [place] [address]Nibiywgtizv time (PT) Coag time (PPP)11.4 second(s)Normal 10.2-12.9[facility] Medical CenterComment on above:Performed By: #### 7461934, 8251719, 83642532, 9046501, 0989042, 73912322, 5862670 ####[facility] [address] [place], [place] [address]tXLGjb 91-98-9419bJIT (black) mL/min/{1.73_m2}Normal>=59[facility] Medical CenterComment on above:Order Comment: Order added by Discern Expert.Result Comment: eGFR is race adjusted. AA=.Performed By: #### 3316573, 8079403, 77934221, 0525708, 5683960, 55760171, 8283062 ####[address] [place], [place] [address]tJGI (non-black)mL/min/{1.73_m2}Normal>=59[facility] Medical CenterComment on above:Order Comment: Order added by Discern Expert. Result Comment: Chronic kidney disease could be indicated at eGFR's of less than 60 mL/min/1.73m2. Kidney failure is indicated at less than 15 mL/min/1.73m2. Performed By: #### 5732206, 1989712, 64014364, 2733094, 0615841, 17617590, 1711484 ####[address] [place], [place] [address]DTC CERVICAL SPINE WO CONTRASTon 49-03-7679UFI CERVICAL SPINE WO CONTRAST EXAMINATION:MRI OF THE CERVICAL SPINE WITHOUT CONTRAST 05/29/2017 9:03 amTECHNIQUE:Multiplanar multisequence MRI of the cervical spine was performed without theadministration of intravenous contrast.CO MPARISON:NoneHISTORY:ORDERING SYSTEM PROVIDED HISTORY: Cervical strain, initial encounterTECHNOLOGIST PROVIDED HISTORY:Ordering Physician Provided Reason for Exam: cervical strain, pain leftshoulder down left armAcuity: AcuteType of Exam: InitialMechanism of Injury: work injury, repitive motionFINDI NGS:BONES/ALIGNMENT: There is normal alignment of the spine. The vertebral bodyheights are maintained. The bone marrow signal appears unremarkable. Milddegenerative disc disease identified at C5-C6.SPINAL CORD: No abnormal cord signal is seen.SOFT TISSUES: No paraspinal mass identified.C2-C3: Thereis no significant disc protrusion, spinal canal stenosis orneural foraminal narrowing.C3-C4: There is no significant disc protrusion, spinal canal stenosis orneural foraminal narrowing.C4-C5: There is no significant disc protrusion, spinal canal stenosis orneural foraminal narrowing.C5-C6: Broad disc osteophyte complex, facet arthropathy and ligamentum flavumhypertrophy are identified resulting in mild central canal stenosis. Theright foramina is mildly stenotic.C6-C7: There is no significant disc protrusion, spinal canal stenosis orneural foraminal narrowing.C7-T1: There is no significant disc protrusion, spinal canal stenosis orneural foraminal narrowing.IMPRESSION: Mild central canal stenosis and mild right foraminal stenosis at C5-C6.Interpreted by:LASHELL Ivanigned by:Jose Lemus MD05/29/17Final resultNormalMercy Mission Bernal CampusMRI SHOULDER LEFT WO CONTRASTon 59-87-1960IYE SHOULDER LEFT WO CONTRASTEXAMINATION:MRI OF THE LEFT SHOULDER WITHOUT CONTRAST 05/29/2017 8:34 amTECHNIQUE:Multiplanar multisequence MRI of the left shoulder was performed without theadministration of intravenous contrast.COMPARISON:Radiographs May 07, 2017HISTORY:ORDERING SYSTEM PROVIDED HISTORY: Rotator cuff strain, left, initial encounterTECHNOLOGIST PROVIDED HISTORY:Ordering Physician Provided Reason for Exam: rotator cuff strain, repitivemotion pain,Acuity: AcuteType of Exam: InitialMechanism of Injury: work injury,FINDINGS:Evaluation is limited by motion.ROTATOR CUFF: No significant tear of the supraspinatus tendon. Mildthickening and increased signal suggests mild tendinosis. Infraspinatus,teres minor, and subscapularis tendons are intact.BICEPS TENDON: IntactLABRUM: No discrete tear.GLENOHUMERAL JOINT: Nojoint effusion. Cartilage is preserved.AC JOINT AND ACROMIOCLAVICULAR ARCH: Mild downsloping acromion is causingmild subacromial impingement. No significant acromioclavicular degenerativechanges.BONEMARROW: No acute fracture. No suspicious bone marrow replacing lesion.OUTLET SPACES: Within normal limits.IMPRESSION: Mild supraspinatus tendinosis.Mild subacromial impingement.Interpreted by:LASHELL Sauligned by:Marcie Rossi MD05/29/17[facility] HospitalXR CERVICAL SPINE LIMITEDon 79-07-7306DT CERVICAL SPINE LIMITEDEXAMINATION:3 VIEWS OF THE CERVICAL SPINE05/07/2017 2:23 amCOMPARISON:None.HISTORY:ORDERING SYSTEM PROVIDED HISTORY: neck painTECHNOLOGIST PROVIDED HISTORY:Reason for exam:->neck painAcuity: UnknownType of Exam: UnknownInitial evaluation for acute left-sided neck pain, no reported trauma.FINDINGS:Cervical vertebral body height and alignment is maintained.No fracture or dislocation is identified. Prevertebral soft tissues areunremarkable.Moderate multilevel degenerative disc disease is present, this is mostprominent at C5-6.No critical spinal canal stenosis.No erosions are present.IMPRESSION: 1. No acute osseous abnormality of the cervical spine.2. Moderate multilevel degenerative disc disease, most pronounced at the C5- 6level.Interpreted by:LASHELL Valentinigned by:Satya Scott MD05/08/17[facility] HospitalXR SHOULDER LEFT STANDARDon 28-09-5233Bqplfud stimulating hormone (TSH)EXAMINATION:3 VIEWS OF THE LEFT SHOULDER05/07/2017 12:57 amCOMPARISON:October 06, 2006HISTORY:ORDERING SYSTEM PROVIDED HISTORY: pain, limited ROMTECHNOLOGIST PROVIDED HISTORY:Reason for exam:->pain, limited ROMAcuity: UnknownType of Exam: UnknownInitial evaluation, acute left shoulder pain, acute traumatic left shoulderpain, lifting heavy objectsFINDINGS:No fracture or dislocation. Joint alignment and joint spaces are maintained.No erosions are present. No pathologic calcification.IMPRESSION: No acute osseous abnormality.Interpreted by:LASHELL Valentinigned by:Satya Scott MD05/08/17Final resultNormalMorrow County Hospital Provider Noteon 62-21-2125HXJ IP Note OR [facility] Vital Signs Date TimeVital SignValuePerforming FgtfuhqbvAttbzmgb78-39-4315 14:26-0400Body nsrtaj063.6 cmDav Carranza DO Work Phone: [phone] access hospital4[facility]10-29-2025 14:26-0400 Body mass index (BMI) [Ratio]40.67 kg/s6EzaletpzDav Carranza DO Work Phone: [phone] access hospital0[facility]10-29-2025 14:26-0400 Body zgwsjfdgvei29.1 [degF]Dav Carranza DO Work Phone: [phone]-Critical access hospital0[facility]10-29-2025 14:26-0400 Body hbmugn804.31 kgDav Carranza DO Work Phone: [phone] access hospital4[facility]10-29-2025 14:26-0400 Diastolic blood nfmfithj34 mm[Hg]Dav Carranza DO Work Phone: [facility]10-29-2025 14:26-0400 Heart qahc209 /minDav Carranza DO Work Phone: [facility]10-29-2025 14:26-0400 Respiratory rate18 /Kate Carranza DO Work Phone: [facility]10-29-2025 14:26-0400 SaO2% (BldA) [Mass fraction]97 %Dav Carranza DO Work Phone: [phone] [place], [place] [address]10-29-2025 14:26-0400 Systolic blood omddzsgv986 mm[Hg]Dav Carranza DO Work Phone: [facility]11-27-2024 15:44-0500 Body pecxde511.37 cmStacy Farias MDOrthoAlliance of Hqqh63-27-0168 15:44-0500 Body mass index (BMI) [Ratio]43.05 kg/v6Ebsbcd Kev MDOrthoAlliance of [place] 09-15-2024 15:44-0500Body ieqgjc199.16 kgDustin Kev MDOrthoAlliance [facility] [place] 07-22-2024 13:53-0400Body dpnsik701.37 cmDustin Kev MDOrthoAlliance [facility] [place] 07-22-2024 13:53-0400Body mass index (BMI) [Ratio]43.1 kg/s5Dcleyc Kev MAST [facility] of Xvqb57-79-5780 13:53-0400Body gavbgp091.3 kgDustin Kev MAST [facility] Fymf63-72-4549 13:15-0400Body kuyilo590.64 cmDustin Kev MAST [facility] Oubp62-41-2918 13:15-0400Body mass index (BMI) [Ratio]41.96 kg/v6Kuwgjf Kev MASTOrthoAlliance of Rshl03-54-0270 13:15-0400Body weight 117.93 kgDustin Kev MASTOrthoAlliance of Qfpv26-67-8087 11:14-0400Body height 166.37 cmDustin Kev MASTOrthoAlliance of Njmm92-36-5895 11:14-0400Body mass index (BMI) [Ratio]42.67 kg/z1Jzlhyg Kev MASTOrthoAlliance of Sxmq98-16-1798 11:14-0400Body hilhhr200.11 kgDustsusan Farias MDOrthoAlliance of Neba31-77-0166 11:08-0400Body ooglkh581.18 cmBruce Alda Rasheed MDOrthoAlliance of Qzsl34-08-1261 11:08-0400Body mass index (BMI) [Ratio]38.69 kg/v7Nuyoa Alda Rasheed MD [facility] Siag39-28-3672 11:08-0400Body fyqrkp852.04 kgBruce Alda Rasheed MDOrthoAlliance of Esdu95-81-4468 12:28-0400Body pecymfxqvzx10.3 [degF]Janice Elliott DO Work Phone: [place] [address]-05-2022 12:-399Diastolic blood jnxeabnr701 mm[Hg]Janice Elliott DO Work Phone: [facility] HospitalOwaxeb68-08-0985 12:-0Heart rate98 /min Janice Elliott DO Work Phone: [facility] HospitalWzixmz50-87-1457 12:Respiratory rate16 /minJanice Elliott DO Work Phone: [facility] HospitalGwrliq07-29-0615 12:28-4419MmK1% (BldA) [Mass fraction]95 %Janice Elliott DO Work Phone: [facility] HospitalHgpnbw63-56-0117 12:Systolic blood mbpalrmw023 mm[Hg]Janice Elliott DO Work Phone: [facility] HospitalXnhkua53-18-8854 08:06-0400Body mkrnsi511.6 cm Janice Elliott DO Work Phone: [facility] HospitalCotbyz96-91-0758 08:06-0400Body mass index (BMI) [Ratio]40.74 kg/m2Janice Elliott DO Work Phone: [place] [address]-05-2022 08:06-0400Body kwhxec182.5 kg Janice Elliott DO Work Phone: [facility] Encounters Encounter DateEncounter TypeCare ProviderFacilityStart: 08-17-2025 End: 93-91-3957Twgeyn outpatient [address] Nafisa DO Work Phone: [facility] Medical CenterComment on above: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); Neck pain after neck surgery; Cervical post-laminectomy syndrome; Cervical spondylosis without myelopathyStart: 08-17-2025 End: 99-31-8554aeyhqdqmtbIKBIBHRN EXCEL[facility] FRICK HOSPITALCLIFFPremier Healthtart: 24-91-1037zhdtknpgarEGNFMyMichigan Medical [facility] COPCP Start: 02-15-2025 End: 13-41-1296Nadizjsydney MARRUFO Work Phone: [facility] FB ORTHOPAEDICSStart: 02-15-2025 End: 65-37-2412Dfpxsc Renetta MARRUFO Work Phone: n[facility] FB ORTHOPAEDICSStart: 02-15-2025 End: 22-34-4155Aolhjq outpatient new 30 minutesMarcie MARRUFO Work Phone: noms FB ORTHOPAEDICSComment on above:Chondromalacia, patella, left (Primary Dx); Acute pain of left knee; Effusion of left kneeStart: 02-15-2025 End: 53-91-1171kcdjrgjhdfTUXRKLY J MEYERResearch [facility] AvailableStart: 02-09-2025 End: 50-63-5067wxoddizudjZnhadp ReynoldsOrthoAllianceStart: 37-58-9983bwrpceferu Stacy ReynoldsOrthoAllianceStart: 58-08-7596zkesawbcieGypvgi [facility] Start: 83-40-1104Mtgwhb outpatient visit 15 minutesDustin ReynoldsOrth[facility]Ne[facility] Start: 13-80-1275jeedfzvfnfIpekpu ReynoldsOrthoNeuroStart: 09-15-2024 End: 85-16-4607Tpecmy outpatient visit 15 minutesDustin Farias Work Phone: on [facility]art: 08-12-2024 End: 07-05-2500Kckciftkj identifierDustin Farias Work Phone: on [facility]: 97-52-1998ucxzoxcrehLsgitl ReynoldsOrthoNeuroStart: 07-22-2024 End: 17-67-0527Ubdqoe outpatient visit 15 minutesDustin Farias Work Phone: on [facility]: 07-19-2024 End: 12-93-2140Omkpnd outpatient visit 25 minutesPaul H Eichenseer Work Phone: on [facility] Hospitaltart: 07-14-2024 End: 91-35-5636Eqllsmvfr identifierPaul H Eichenseer Work Phone: on [facility]: 06-16-2024 End: 31-44-9483Htqldjbir identifierDustin Farias Work Phone: on [facility]: 06-16-2024 End: 33-92-3734Bpvnwe outpatient visit 15 minutesDustin Farias Work Phone: on [facility]: 05-03-2024 End: 83-02-5175Oqssez outpatient visit 15 minutesBruce Darius Comisar Jr Work Phone: on [facility]: 03-22-2024 End: 40-90-5493xhfhtgszjePSIYD R COMISAR JROhio Valley Hospitaltart: 02-18-2024 End: 39-08-2345iljrlwkodnBGEVR R COMISAR JRProHendrick Medical Centertart: 01-30-2024 End: 04-57-4143tawwribmfdBLZIP R COMISAR JRProHendrick Medical Centertart: 01-29-2024 End: 37-56-6370Bhnhhasck identifierBruce Darius Comisar Jr Work Phone: [facility]: 01-20-2024 End: 82-05-9015Lgomxadkn identifierBruce Darius Comisar Jr Work Phone: on [facility]rt: 12-25-2023 End: 65-15-0297Szojovvfv identifierBruce Darius Comisar Jr Work Phone: on [facility] Hospitaltart: 12-10-2023 End: 10-37-7532Vmcouh outpatient visit 15 minutesBruce Darius Comisar Jr Work Phone: on [facility]rt: 11-18-2023 End: 21-35-5641Puypvjbsr identifierMark A White Work Phone: on [facility] HospitalLex Machinatart: 08-12-2023 End: 05-87-3897Bhendw outpatient visit 25 minutesMark A White Work Phone: on [facility] HospitalilleStart: 08-01-2023 End: 49-28-1888Rfnffa outpatient new 45 minutesDustin Farias Work Phone: on [place]Start: 04-08-2023 End: 39-97-8595Xzctim outpatient visit 15 minutesKrystal Jalovec Work Phone: on [facility] Hospitaltart: 04-01-2023 End: 45-59-7047Laednd outpatient visit 25 minutesBenjamin W Szerlip Work Phone: on [facility] Centerart: 02-18-2023 End: 90-48-3869sneatgvhrnVI RENEE KARJUDY .Facility:C8Yslqx: 02-11-2023 End: 48-20-3706epmfzmfhmxUL RENEE ANGELJUDY .Facility:W3Hcqfh: 02-03-2023 End: 01-93-1483dmmqnszhojTI RENEE KARJUDY .Facility:Z7Nrbax: 01-14-2023 End: 36-63-3050Duxjie outpatient visit 25 minutesBenjamin W Szerlip Work Phone: on PicktylertonStart: 01-07-2023 End: 92-05-8214Mqfrzm outpatient visit 15 minutesKrystal Jalovec Work Phone: on [facility] Hospitaltart: 12-31-2022 End: 12-55-4287Aghbtn outpatient visit 25 minutesBenjamin W Szerlip Work Phone: on [facility] centerStart: 12-26-2022 End: 39-63-8603Cqzoxobuj identifierMarrenee Nurys Gutiérrez Work Phone: on [facility]: 12-24-2022 End: 77-49-5372Motvxc outpatient visit 25 minutesMark A White Work Phone: on [facility]Start: 11-20-2022 End: 92-74-6664Hrbzbzuxp identifierMark A White Work Phone: on [place]: 11-05-2022 End: 12-41-5455Uhbnnn outpatient visit 25 minutesKrystal Monicavec Work Phone: [facility]: 09-10-2022 End: 61-88-2651Llvytrldi identifierMark A White Work Phone: [facility]: 08-06-2022 End: 24-46-8902Dqzwxzdsr identifierMark A White [facility] Phone: [facility] 08-06-2022 End: 26-33-5160Dsvufi follow up visit related to original pxBruce Alda Rasheed MD [facility]: 07-29-2022 End: 37-47-3062oarpminvnfDZIXVT RODRIGUEZ .Facility:Q1Asfwf: 07-24-2022 End: 10-96-8415Jthqbhsxl identifierMark A White Work Phone: [facility]: 07-24-2022 End: 95-79-9660Hcpjkedoqp and management of inpatientMARK WHITECtunt [facility]: 07-24-2022 End: 59-40-5436Pzfbebtiec and management of inpatientMark White DO Work Phone: [facility]: 07-24-2022 End: 70-12-2073Hhlswlrave hospital visit by physicianMark White DO Work Phone: [facility]rt: 78-18-1406jbhlmcpcdsLCNA WHITECorey Hospitaltart: 50-91-1378Qkiqlkurp for other preprocedural examinationMARK WHITETrinity Health System [facility] Centerrt: 07-08-2022 End: 99-92-3319Wzplnclte identifierMark A White Work Phone: on DaleStart: 04-10-2022 End: 67-85-0594sgemutrstePK DOCTOR MISCFacility:C8Xzydo: 04-02-2022 End: 24-99-9910gurrvzfcoiYW DOCTOR MISCFacility:O7Rdcev: 11-03-2017 End: 43-87-5816FeukpigfqyMIMYGE~[id number] UNKNOWN HERRINGFacility:FTMCStart: 05-29-2017 End: 75-72-4574ZralubtovtHIRUGJ O'NEAL HOOKERMpremier health atrium medical centerdavid [facility] Start: 05-07-2017 End: 87-69-8882Otzjeifiq department patient visitHEATHER Leah FARNSWORTHSage Memorial Hospitaldavid [facility] Procedures DateProcedureProcedure DetailPerforming ClinicianStart: 12-88-5382Mzhexppaygyilt aspir&/inj major jt/bursa w/o usMarcie MARRUFO Work Phone: Start: 35-19-2487Akicodzxxg examination knee 1/2 views Marcie MARRUFO Work Phone: Start: 05-03-2024 End: 90-73-6873Isortkahiyfckf aspir&/inj major jt/bursa w/o usBruce Comisar Jr MDStart: 05-03-2024 End: 61-72-1675Blauiqdakfk Injection 0.5 mgBruce Comisar MDStart: 05-03-2024 End: 64-41-7554Ifdwzvhvtzxup sodium phosBruce Comisar Jr MDStart: 05-03-2024 End: 76-72-5178Xye Methylpred Acetate 1 MGBruce Comisar Jr MDStart: 12-10-2023 End: 19-51-4250Qkpoc shoulder complete minimum 2 viewsBruce Comisar Jr MDStart: 04-08-2023 End: 32-99-2834Mwdcn spine cervical 2 or 3 viewsBruce Comisar MDStart: 68-75-6546LmmdsicpuasPentuzi Meyer PA Work Phone: Start: 01-14-2023 End: 07-46-1811Bssalwsotjqokn aspir&/inj major jt/bursa w/o usBruce Comisar MDStart: 01-14-2023 End: 06-34-7254Sjfiqynwvicmu acet inj NOSBruce Comisar MDStart: 12-31-2022 End: 76-62-2018Vomjd shoulder complete minimum 2 viewsBruce Comisar MDStart: 12-26-2022 End: 79-53-6482Tzhjj conduction studies 5-6 studiesBruce Comisar MDStart: 11-05-2022 End: 38-70-7998Kkggg spine cervical 2 or 3 viewsBruce Comisar MDStart: 08-06-2022 End: 76-06-8676Avnfe spine cervical 2 or 3 viewsBruce Comisar MDStart: 07-24-2022 End: 05-52-7657Diuklvmuc for spine surgery only structuralBruce Alda Rasheed MD Start: 07-24-2022 End: 08-16-2066Zjscer ant interbody decompress cervical belw l9Jnjch Comisar MDStart: 07-24-2022 End: 47-37-3183PV Insert Spine Fix Dev, Ant 2-3 SegBruce Comisar MDStart: 07-24-2022 End: 53-88-4817NF Insj biomechanical deviceBruce Comisar MDStart: 07-24-2022 End: 99-15-8866IE NECK SPINE FUSE&REMOVE ADDLBruce Alda Rasheed MDStart: 79-20-7537Olyzr spine cervical 2 or 3 viewsMark Lexi DO Work Phone: Start: 99-52-4737AX FLUORO UP TO 1 HOUR (STATISTICS)(NO REPORT)Janice Lexi DO Work Phone: Start: 07-08-2022 End: 45-95-5248Kkzz flex n/adj foam pre otsBruce Comisar MDStart: 05-29-2017 Mri spinal canal cervical w/o contrast matrlHEATHER CARONEStart: 12-23-1734Jdj any jt upper extremity w/o contrast matrlHEATHER CARONEStart: 80-08-8593Xnfwg spine cervical 2 or 3 viewsHEATHER CARONEStart: 28-98-1633Ifylb shoulder complete minimum 2 viewsHEATHER CARONE Plan of Treatment DateCare ActivityDetailAuthorStart: 30-19-1985BVrU/Tdap/Td Vaccines (2 - Td or Tdap)DTaP/Tdap/Td Vaccines (2 - Td or Tdap)[facility] Start: 08-31-2025 End: 16-68-7960Kkpdjwd encounter /12/2025 2:45 PM EST Office Visit [facility] [address] [place] [phone] Dav Carranza DO [address] [facility] [place] [address] [facility] CenterStart: 08-17-2025 End: 75-69-0476MY Cervical spine WO contrastMR cervical spine wo IV contrast Imaging Routine Cervical post-laminectomy syndrome Cervical spondylosis without myelopathy Expected: 08/17/2025 (Approximate), Expires: 08/17/2026[facility] Service Area Work Phone: comment on above:Expected: 08/17/2025 (Approximate), Expires: 08/17/2026Start: 93-04-1738KZBAB-19 Vaccine ( season)COVID- 19 Vaccine ( season)[facility] HospitalStart: 44-65-3838Gwzwrhkku vaccinationInfluenza Vaccine (Season Ended)[facility] Start: 83-06-6840Iupysvnem vaccinationInfluenza Vaccine (#1)[facility] HospitalStart: 03-15-2025 End: 94-48-6012Gjkiukr encounter vilvmkfss52/27/2025 10:30 AM EDT Office Visit [facility] [address] [place] [address] Marcie Fermin, YARON [address] [facility] [address] [place] [address] [facility]ICSStart: 02-15-2025 End: 46-56-8860Noanapg encounter cfehsvfbg18/29/2025 10:30 AM EDT Office Visit [facility] [address] [phone] Marcie Fermin PA [address] [place] [address] Acute pain of left kneeNOMS FB ORTHOPAEDICSComment on above: Acute pain of left kneeStart: 54-51-6269FvuloujCece Smith X 2 C3-5 [facility] Work Phone: Start: 08-52-7816YzscletCece Smith X2 C3-5 [facility] Work Phone: Start: 22-76-4476Vktprds, LaurieOrthoAlliance of Sch[facility]yl[facility] Work Phone: Start: 66-24-3320Rbntrvc, Laurie CERVICALOr[facility]oAlliance of [facility] Work Phone: Start: 52-97-2631Srqnilv, Laurie LT SHLDOrthoAlliance of [facility] Work Phone: Start: 24-15-1285Gxhsuwbrx for malignant neoplasm of breastMammogramBarnes-Jewish Saint Peters HospitalStart: 10-63-7498Dmhycij referralOrthoAlliance The Rehabilitation InstituteStdracut: 03-76-7617Zoogcdni MRI joint, w/o contrast, Left (88818), Body Site: Shoulder, Sent on: Feh-07-1079JstjjXyzocyrd [facility] InstituteStart: 04-77-6230Hrtqrrp referralOrthoAlliance The Rehabilitation InstituteStdracut: 44-50-4707Wddriozvkotb/CHF/CAD Annual BMP Blood TestHypertension/CHF/CAD Annual BMP Blood TestOak Island HealthStart: 43-15-2975Fqznniwy Spine MRI w/o contrast, Complete (68271), Body Site: Spine, Sent on: Sxd-69-8899HhcemKlwvvkie [facility]: 07-24-2022 End: 35-37-4192ZGIRFU CERVICAL ANTERIOR LEVEL 1FUSION CERVICAL ANTERIOR LEVEL 1 Other spondylosis with myelopathy, cervical region 07/24/2022 9:31AM EDTMCSA Main ORStart: 09-98-1760Hrrstplgm vaccinationInfluenza Vaccine (#1)[facility] HospitalStart: 52-85-5289Whyaaxfvdm depression screening assessmentDepression ScreeningRothman Orthopaedic Specialty HospitalStart: 16-08-0623Szgfhvkxa C screeningHepatitis C ScreeningRothman Orthopaedic Specialty HospitalStart: 80-42-8071FMG screeningHIV ScreeningOak Island Health Start: 13-44-0577Orakc panelCholesterol Screening (Lipid Panel)[facility] Start: 24-13-5162Cmydyfpus for malignant neoplasm of breastBreast Cancer ScreeningTrinmercy health spring[facility] center HealthStart: 19-17-4383Hkobpslia for malignant neoplasm of colonColorectal Cancer Screening: ColonoscopyTrinAllegheny Health NetworkStart: 06-06-2022 Social Influencers of Health ScreeningSocial Influencers of Health Screening [facility]: 52-96-0125WLGOF-19 Vaccine (3 - Booster for Pfizer series) COVID-19 Vaccine (3 - Booster for Pfizer series)[facility]ty HospitalStdracut: 2017 Pneumococcal vaccinationPneumococcal Vaccine (1 of 1 - PCV)[facility]: 09-74-4068Gvmqlp Vaccines (1 of 2)Zoster Vaccines (1 of 2) [facility] HospitalStdracut: 82-37-3561Gvhswqkkr for malignant neoplasm of cervixBarnes-Jewish Saint Peters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 guidance. 6. Microsurgical technique. SURGEON: Janice Elliott DO COSMETIC ACCOUNT COORDINATOR: Lacey Sandoval, jennifer PA, who was present during the entire procedure to help with exposure, retract delicate structures, and help with closure. She is integral to the procedure to decrease operative time, decrease blood loss, and help with overall patient care. BLOOD LOSS: Less than 10 mL. CRYSTALLOID: 1200 mL. OPERATIVE TIME: Approximately 40 minutes. GROSS FINDINGS: Spondylosis at C5-C6. Complications none noted. All counts were correct. Excellent hemostasis achieved at time of closure. After decompression, neural foramen was widely patent. INDICATIONS FOR PROCEDURE: The patient is a pleasant 57-year-old gentleman who has had severe left arm pain. MRI scan shows collapse of disc space, posterior spur, and uncovertebral joint hypertrophy, left greater than right, causing foraminal stenosis. I discussed with her anterior cervical decompression and fusion. I reviewed the risks, benefits, and limitations of procedure, usual operative and postoperative course, my experience. She wished to proceed with surgery in hopes of helping her condition. DESCRIPTION OF PROCEDURE: After obtaining informed consent, the patient was taken back to the operative suite by Department of Anesthesia. Cardiac monitors were placed appropriately. She was placed supine on the operating room table. She was intubated in neutral fashion without difficulty. ET tube was secured and verified by Anesthesia. SCDs were placed in lower extremities. Her arms were padded and tucked at her side. Neck was kept in neutral position and midline. Skin scribe marked the anticipated incision site over the right side of the sternocleidomastoid, 2 fingerbreadths above the clavicle. Her neck was then prepped and draped in standard fashion. A timeout was called, verified armband, verified anatomical level, procedure, and implants along with the universal precautions. Fire precautions were 1. She had been given preoperative IV antibiotic and Decadron per protocol. All were ready to proceed. There were no question or concern voiced prior to incision. Next, a #10 blade was used to make a transverse in cision. Dissection was carried down to platysma with Metzenbaum and forceps, which was cauterized with bipolar cautery sharply. The sternocleidomastoid freed along its medial border with Metzenbaum scissors. The trachea and esophagus were brought medially. Carotid arteries were palpated bilaterally. Omohyoid was freed along its superior and inferior border and mobilized. The precervical fascia was incised with Metzenbaum scissors. Longus colli were cauterized with bipolar cautery on the medial border and freed with Metzenbaum scissors. Needle was inserted into the disc space. C-arm was sterilely draped and brought into the field. Cross-fire lateral C-arm verified we were at the C6-C7 disk and then I went up to the disc above and marked this as C5-C6. We made sure we were in the midline. Self-retaining belt glass sander retractors were removed. All needles were removed and the retractor exposedthe C5-C6 disc. Microscope was sterilely draped and brought into the field, and under direct magnification, I incised the disk at C5-C6 with a 15-blade and resected with straight pituitary rongeur. I then performed partial corpectomy of C5, removal of 20% of vertebral body in order to adequately decompress the neural foramen. Endplates were decorticated for Devine-Jalloh type graft. I drilled down to the posterior spur, drilled off the posterior spur superior and inferiorly. Posterior longitudinal ligament was elevated with a nerve hook, incised with a 15-blade and resected with 1 and 2 mm Kerrisons. Foraminotomy was completed with 2.0 angled and 3.0 angled curette and 1 and 2 mm Kerrisonsbilaterally. After decompression, neural foramen was widely patent bilaterally. Depth gauge was used to measure depth of disc space and found to be 16 mm. A trial 7 x 16 x 14, 6 degrees of lordosis was found to be appropriately sized and lordosed for the graft. The trial was removed. Surgiflo was inserted in disc space and then copiously irrigated out. No active bleeding was noted. No CSF leak was seen. The Titan C graft was then filled with DBM, size 7 x 16 x 14, 6 degrees of lordosis insertedin disc space, countersunk 2 mm. Nerve hook was passed behind the graft and found to be free and clear of spinal cord. A 23 mm Zevo plate was placed over the spine and found to be appropriately sizedand lordosed. It was then affixed with 3.5 x 13 mm screws x4, two in vertebral body of C5, two in vertebral body of C6, all with good solid purchase and fixation. The plate screw locking mechanism was secured into place. Final AP and lateral x-ray showed excellent placement of interbody graft, plate , and screws. The wound was copiously irrigated with antibiotic saline. Retractors were removed. All counts were correct. Excellent hemostasis achieved at time of closure. I inspected the trachea andesophagus and they were found to be free and clear of any injury. Cardiovascular structures were found to be free and clear of injury. No active bleeding was noted. All counts were correct. Platysma was closed with 4-0 Vicryl in interrupted fashion. Skin was closed with running 4-0 subcuticular stitch, dressed with Dermabond glue and a Band-Aid. The patient was placed in soft cervical collar and planned to be extubated per protocol. The patient will be taken back to the postoperative care unit in stable condition. We will speak with family after the procedure. JANCIE ELLIOTT DO TT: 07/24/2022 13:55:00 TASNEEMW/RAVINDRA documented in this encounterOak Island [id number] Procedure note* Melissa Duke RN - 07/24/2022 1:10 PM EDT Spoke with patient about her bp, she says its never high at home, her pcp discontinued her bp meds at home because it was low. She will monitor it at home and fu with her pcp as needed. [place] [id number] Procedure note* Melissa Duke RN - 07/24/2022 12:58 PM EDT Done with physical and occupational therapy, walked in maria, pt is eating, pain med given. Sitting in chair. [place] [id number] History of Present illness Narrative* Lavinia Madison OT - 07/24/2022 12:27 PM EDT Occupational Therapy Patient: Cece Smith Age: 57 y.o. Sex: female No Principal Problem: There is no principal problem currently on the Problem List. Please update the Problem List and refresh. 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 Patient's home is one-level, 4 steps to enter DME Needs: (None. May benefit from elevated toilet seat.) OT Discharge Recommendation: Home independent SUBJECTIVE Patient is POD #0 s/p C5-C6 anterior cervical microdiscectomy. Pt was cleared for occupational therapy services by RN. Patient received supine in bed at start of the session. Pt with subjective reports of feeling well this date and was agreeable to participate in this therapy session. Past Medical History: Diagnosis Date Cervical spinal stenosis Cough Neck pain RADIATING TO ARMS Obesity Venous insufficiency HX OF Past Surgical History: Procedure Laterality Date CHOLECYSTECTOMY COLONOSCOPY ESOPHAGOSCOPY / EGD HYSTERECTOMY PELVIC LAPAROSCOPY ROTATOR CUFF REPAIR Right OBJECTIVE Precautions: Precautions Medical Precautions: (None) Safety Interventions: Call martinez within reach, ID band on, Gait belt Orthopedic Precautions: Cervical Precautions Orthoses Applied: Cervical Collar (At all times, okay to remove to eat. 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 Patient's home is one-level, 4 steps to enter Home Layout: Two level, Able to live on main level with bedroom/bathroom (Shower located on 2nd floor.) Bathroom Shower/Tub: Walk-in shower Bathroom Toilet: Standard Bathroom Equipment: None Prior Function: Prior Function Level of [place]: Independent with mobility and functional transfers Indoor Mobility Assistance: Independent Do you drive?: Yes Prior ADL/IADL History: ADL/IADL History ADL Assistance (Self Care): Independent Homemaking Assistance (Functional Cognition): Independent General Assessments: ADL Eating Assistance: Independent Grooming Assistance: Independent Oral Hygiene Assistance: Independent Bathing Assistance: Independent UE Dressing Assistance: Independent LE Dressing Assistance: Independent Footwear Assistance: Independent Toileting Assistance: Independent ADL Comments: Follows figure 4 technique to adhere to cervical precautions Bed Mobility Sitting to Lying Assistance: (Patient in chair upon conclusion of session) Lying to Sitting Assistance: Close supervision ([place]) Functional Transfers Sit to Stand Assistance: Supervision or touching assistance Chair/Bed to Chair/Bed Assistance: Supervision or touching assistance Toilet Transfer Assistance: Supervision or touching assistance Functional Mobility Walking Assistance: Close supervision Activity Tolerance Endurance: Tolerates 30 min activity with multiple rests Static Sitting Balance Static Sitting-Level of Assistance: Independent Dynamic Sitting Balance Dynamic Sitting-Level of Assistance: Independent Static Standing Balance Static Standing-Level of Assistance: Independent Dynamic Standing Balance Dynamic Standing-Level of Assistance: Close supervision Cognitive Status: Cognition Overall Cognitive Status: Within Functional Limits Arousal/Alertness: Appropriate responses to stimuli Orientation Level: Oriented X4 Following Commands: Follows all commands and directions without difficulty Safety Judgment: Good awareness of safety precautions Awareness of Errors: Good awareness of errors made Deficits: Fully aware of deficits Attention Span: Appears intact Memory: Appears intact Insight: Within function limits Problem Solving: Able to problem solve independently Vision - Basic Assessment Current Vision: No visual deficits Perception Inattention/Neglect: Appears intact Initiation: Appears intact Motor Planning: Appears intact Proprioception Proprioception: No apparent deficits Sensation Light Touch: No apparent deficits Extremity Assessments: Hand Function Gross Grasp: Functional Coordination Coordination: Functional RUE Assessment RUE Assessment: Within Functional Limits LUE Assessment LUE Assessment: Within Functional Limits ASSESSMENT Pt demonstrated Excellent tolerance to this therapy session. Pt left sitting in bedside chair with call light within reach and all needs met. RN notified of patients progress and level of assist required for mobility. OT is recommending OT Discharge Recommendations: Home independent and Equipment Recommended: (None. May benefit from elevated toilet seat.) at discharge. AM-PAC Inpatient Daily Activity Short Form Scoring Form: Unable: 1 A Lot: 2 A Little: 3 None: 4 How much help from another person does the patient currently need? Putting on and taking off regular lower body clothing? [] [] [] [x] Bathing (including washing, rinsing, drying)? [] [] [] [x] Toileting, which includes using toilet, bedpan, or urinal? [] [] [] [x] Putting on and taking off regular upper body clothing? [] [] [] [x] Personal grooming such as brushing teeth? [] [] [] [x] Eating meals? [] [] [] [x] Score: PLAN Acute Care Plan: Treatment Interventions: ADL retraining OT Plan: No skilled OT OT Discharge Recommendations: Home independent Equipment Recommended: (None. May benefit from elevated toilet seat.) Encounter Problems Encounter Problems (Active) There are no active problems. Encounter Problems (Resolved) There are no resolved problems. EDUCATION Education Documentation Body Mechanics, taught by Lavinia Madison OT at 07/24/2022 1:05 PM. Learner: Family, Patient Readiness: Acceptance Method: Explanation, Demonstration, Handout Response: Verbalizes Understanding, Demonstrated Understanding Precautions, taught by Lavinia Madison OT at 07/24/2022 1:05 PM. Learner: Family, Patient Readiness: Acceptance Method: Explanation, Demonstration, Handout Response: Verbalizes Understanding, Demonstrated Understanding ADL Training, taught by Lavinia Madison OT at 07/24/2022 1:05 PM. Learner: Family, Patient Readiness: Acceptance Method: Explanation, Demonstration, Handout Response: Verbalizes Understanding, Demonstrated Understanding Education Comments No comments found. Lavinia Madison OT * Roxanne Crum, PT - 07/24/2022 12:25 PM EDT Patient: Cece Smith Age: 57 y.o. Sex: female No Principal Problem: There is no principal problem currently on the Problem List. Please update the Problem List and refresh. 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 Patient's home is one-level, 4 steps to enter DME Needs: PT Discharge Recommendation: Home independent Reason for current recommendation based on assessment: Per protocol, patient not to begin there ex until after follow-up and functional mobility safe for d/c to home with no skilled need. SUBJECTIVE Patient agreeable to session. Daughter in law present for session. Past Medical History: Diagnosis Date Cervical spinal stenosis Cough Neck pain RADIATING TO ARMS Obesity Venous insufficiency HX OF Past Surgical History: Procedure Laterality Date CHOLECYSTECTOMY COLONOSCOPY ESOPHAGOSCOPY / EGD HYSTERECTOMY PELVIC LAPAROSCOPY ROTATOR CUFF REPAIR Right OBJECTIVE Precautions: Precautions Medical Precautions: Fall Risk Safety Interventions: ID band on, Call martinez within reach, Gait belt Orthopedic Precautions: Cervical Precautions Orthoses Applied: Cervical Collar (On throughout session) Vitals/Pain: Pain Assessment Pain Assessment: 0-10 Pain Score: 6 Pain Type: Surgical pain Pain Location: Neck Cognition: Cognition Orientation Level: Oriented X4 Home Living: Home Living Type of Home: House Lives With: Alone Home Adaptive Equipment: Cane Home Living Comments: Patient will be staying with son and dtr in law initially following surgery. Patient's home is one-level, 4 steps to enter Home Layout: Two level, Able to live on main level with bedroom/bathroom Home Access: Stairs to enter with rails Entrance Stairs-Rails: Rail on the right going up Entrance Stairs-Number of Steps: 3 Prior Function: Prior Function Level of [place]: Independent with mobility and functional transfers General Assessments: Static Sitting Balance Static Sitting-Level of Assistance: Supervision or touching assistance Dynamic Sitting Balance Dynamic Sitting-Level of Assistance: Supervision or touching assistance Static Standing Balance Static Standing-Level of Assistance: Supervision or touching assistance Dynamic Standing Balance Dynamic Standing-Level of Assistance: Supervision or touching assistance Functional Assessments: Bed Mobility Rolling Left and Right Assistance: Supervision or touching assistance Lying to Sitting Assistance: Supervision or touching assistance Lying to Sitting Deficit: Verbal cueing Transfers Sit to Stand Assistance: Supervision or touching assistance Ambulation Walking Assistance: Supervision or touching assistance Device: No device Distance Ambulated (ft): 150 Stairs Rails: Right Device: No device Number of Stairs: 2 Stairs Comments: CGA Extremity Assessments: RLE Assessment RLE Assessment Additional: Yes Strength RLE R Ankle Dorsiflexion: 5/5 R Ankle Plantar Flexion: 02/21 LLE Assessment LLE Assessment Additional: Yes Strength LLE L Ankle Dorsiflexion: 02/21 L Ankle Plantar Flexion: 02/21 Additional Assessments: AM-PAC 6 Clicks Scoring Form: Unable: 1 A Lot: 2 A Little: 3 None: 4 How much difficulty does the patient currently have? Turning over in bed (including adjustment of bedclothes, sheets, and blankets) [] [] [x] [] Sitting down on and standing up from a chair with arms (wheelchair, bedside commode etc [] [] [x] [] Moving from lying on back to sitting on the side of the bed [] [] [x] [] How much help from another person does the patient currently need? Moving to and from a bed to a chair ( including a wheelchair) [] [] [x] [] To walk in hospital room [] [] [x] [] Climbing 3-5 steps with a railing [] [] [x] [] Score: Procedure/Treatment: Gait Training Gait Training Time Entry: Gait Training Activity 1: Gait training Gait Training Activity 2: Stair training Other Activities: ASSESSMENT Patient educated on cervical precautions and asking appropriate questions. Perform ambulation and stair training as logged. Performed toileting/dressing per OT. Patient left sitting in bedside chair with RN present administering medication and daughter in law in room. 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 Dates: Start: 07/24/22 Expected End: 07/24/22 Outcomes Date/Time User Outcome 07/24/22 1300 Roxanne Crum, PT Adequate for Discharge Goal: Pt will transfer with SBA. Dates: Start: 07/24/22 Expected End: 07/24/22 Outcomes Date/Time User Outcome 07/24/22 1300 Roxanne Ristow, PT Adequate for Discharge Goal: Pt will ambulate 150 ft. with wheeled walker and SBA Dates: Start: 07/24/22 Expected End: 07/24/22 Outcomes Date/Time User Outcome 07/24/22 1300 Roxanne Ristow, PT Adequate for Discharge Goal: Pt will ascend/descend steps with CGA and LRAD Dates: Start: 07/24/22 Expected End: 07/24/22 Outcomes Date/Time User Outcome 07/24/22 1300 Roxanne Ristow, PT Adequate for Discharge Goal: Caregiver/patient will demonstrate safety precautions during mobility tasks with CGA Dates: Start: 07/24/22 Expected End: 07/24/22 Description: Cervical precautions, Cervical collar Outcomes Date/Time User Outcome 07/24/22 1300 Roxanne Butlerw, PT Adequate for Discharge Encounter Problems (Resolved) There are no resolved problems. EDUCATION Education Documentation Explain call button use, taught by Roxanne Crum PT at 07/24/2022 1:00 PM. Learner: Caregiver, Patient Readiness: Acceptance Method: Explanation, Demonstration, Handout Response: Verbalizes Understanding Comment: Handout provided for cervical precautions Teach fall prevention measures, taught by Roxanne Crum PT at 07/24/2022 1:00 PM. Learner: Caregiver, Patient Readiness: Acceptance Method: Explanation, Demonstration, Handout Response: Verbalizes Understanding Comment: Handout provided for cervical precautions Precautions, taught by Roxanne Crum PT at 07/24/2022 1:00 PM. Learner: Caregiver, Patient Readiness: Acceptance Method: Explanation, Demonstration, Handout Response: Verbalizes Understanding Comment: Handout provided for cervical precautions Mobility Training, taught by Roxanne Crum PT at 07/24/2022 1:00 PM. Learner: Caregiver, Patient Readiness: Acceptance Method: Explanation, Demonstration, Handout Response: Verbalizes Understanding Comment: Handout provided for cervical precautions Education Comments No comments found. Roxanne Crum PT * YARON Abraham - 07/24/2022 12:21 PM EDT Day of Surgery: * C5-C6 ANTERIOR CERVICAL MICRODISCECTOMY WITH GRAFT/PLATE AND C-ARM Subjective Patient seen and examined in recovery room, she is shortly headed to phase 2 recovery. She is sitting upright eating ice chips. She reports achiness in her neck and upper shoulders but denies radicular pain or paresthesias. She is swallowing well. She admits to a slight sore throat. She denies shortness of breath. She denies hoarseness, chest pain, nausea or emesis. Last Recorded Vitals: Blood pressure (!) 180/110, pulse 92, temperature 36.6 C (97.8 F), temperature source Temporal, resp. rate 20, height 1.676 m (66 ), weight 115 kg (252 lb 6.8 oz), SpO2 97 %. No intake/output data recorded. 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 Voice is strong, trachea is midline. Soft foam collar is in place. Original surgical dressing is in place without saturation. Active Problems: No Active Problems: There are no active problems currently on the Problem List. Please update the Problem List and refresh. Assessment & Plan Postop day 0 status post C5-6 ACMD, patient is neurovascularly intact. She is eating and drinking. Pain is currently controlled. Plan is to discharge home, patient will work with physical therapy prior to discharge. Discharge instructions were typed out and written in her chart. Prescriptions for home were sent to [facility] pharmacy. She will follow-up in 1 to 2 weeks with cervical x-rays. Lacey Sandoval PA-C documented in this encounterRothman Orthopaedic Specialty [id number] Hospital course Narrative* YARON Abraham - 07/24/2022 11:01 AM EDT RESUME MEDICATIONS INSTRUCTED. AVOID NSAID MEDICATION FOR 3 MONTHS POSTOPERATIVE. DO NOT TAKE MORE THAN 4000MG TYLENOL PER DAY. * YARON Abraham - 07/24/2022 11:00 AM EDT RESUME NORMAL DIET. SORE THROAT AND SWALLOWING DIFFICULTY IS TYPICAL, CONTACT OFFICE IF YOU ARE UNABLE TO SWALLOW, GO TO ED IF YOU HAVE BREATHING DIFFICULTY. CHEW FOOD THOROUGHLY AND TAKE SMALL BITES. USE SMALL SIPS OF WATER TO HELP SWALLOW IF NEEDED. * YARON Abraham - 07/24/2022 10:59 AM EDT LIGHT ACTIVITIES, LIGHT LIFTING <7LBS. AVOID BENDING/TWISTING WITH THE NECK. SOFT FOAM COLLAR JL WORN AT ALL TIMES EXCEPT FOR HYGIENE PURPOSES. SLEEP UPRIGHT TOLERATED FOR THE FIRST 48 HOURSSO TO DECREASE RISK OF BLEEDING. OK TO BE WALKING, LIMIT REPETITIVE STAIRS. NO DRIVING UNTIL CLEARED BY SURGEON AT FOLLOW UP VISIT. documented in this [facility]10-05-2022 Hospital Discharge instructions* Discharge Instructions* YARON Abraham - 07/24/2022 11:01 AM EDT KEEP INCISION CLEAN AND DRY. KEEP SURGICAL DRESSING IN PLACE UNTIL 07/26, OK TO SHOWER ON 07/26 WITH BANDAID ON THEN REMOVE WET BANDAID AND LEAVE INCISION OPEN TO THE AIR. ALL SUTURES ARE DISSOLVABLE. PURPLE SKIN GLUE WILL BE PRESENT. * Attachments The following attachments cannot be sent through Care Everywhere. * General Anesthesia (Thai) * Cervical Disc Disease (Thai) documented in this [facility]10-05-2022 Procedure note* Janice Elliott DO - 07/24/2022 9:57 AM EDT Date: 07/24/2022 Location: [facility] OR Name: Cece Smith, : 1965, Diagnosis Pre-op Diagnosis * Other spondylosis with myelopathy, cervical region [M47.12] C5-6 Post-op Diagnosis * Other spondylosis with myelopathy, cervical region [M47.12] C5-6 Procedures * C5-C6 ANTERIOR CERVICAL MICRODISCECTOMY WITH GRAFT/PLATE AND C-ARM Indications: Cece Smith is an 57 y.o. female who is having surgery for cervical spondylosis C5-6 Surgeon(s) & Lead Mechanical Engineer(s) * Janice Elliott DO - Primary Physician Lead Mechanical Engineer: YARON Abraham Staff Bus Attendant: Poornima Hernandez RN Physician Lead Mechanical Engineer: YARON Abraham Pt Escort: Toshia Garcia Scrub Person: Juliann Campbell Anesthesia: general ASA: II Estimated Blood Loss: Minimal Drains: * No LDAs found * Specimen: none Findings: stenosis C5-6 Complications: None; patient tolerated the procedure well. Disposition: PACU - hemodynamically stable. Condition: stable [facility] [id number] Attending History and physical note* Janice Elliott DO - 07/24/2022 8:50 AM EDT Pt. Here for ACMD C5-6 due to spondylosis her exam is unchanged Source Note - Gabriela Guan MD - 07/10/2022 1:30 PM EDT Images from the original note were not included. Gabriela Guan MD [facility] Hospitalists Medical Consultation Patient Name:Cece Smith MR #:[id number] :1965 Admit Date: Physicians: No Pcp Physician (Family); Janice Elliott DO (Referring) Reason for Consultation: Pre-Operative medical risk stratification and testing at the request of Dr. Elliott Perpetual Assessment: Cece Smith is a 57 y.o. female who presented to [facility] clinic for pre operative evaluation prior to C5-C6 anterior cervical microdiscectomy with graft/plate and C arm on 07/24/2022. ASSESSMENT AND PLAN Pre-Operative testing and risk stratification - The patient is being evaluated for an intermediate risk surgery - The patient has no symptoms - The patient's functional capacity is able to achieve 4 METS - The patient has the following pertinent Revised Cardiac Risk Index Indicators None - I have reviewed EKG and pertinent labs - Based on the above, the patient is at acceptable risk to proceed to surgery - Advised to hold anti-platelets, NSAIDs and alternative supplements (such as vitamins, herbal medications) 5-7 days prior to Surgery; These can be resumed post-operatively when cleared by the Surgeon Cervical spine stenosis -Surgical procedure planned as above Probable VISHAL -Patient has a history of significant snoring and advised to talk to her PCP about arranging an outpatient sleep study -Monitor closely in the perioperative setting History of venous insufficiency -With stable mild lower extremity edema bilaterally HISTORY CC: Preoperative evaluation HPI: Cece Smith is a 57 y.o. female with cervical stenosis. Patient has had anesthesia before and denies any issues with anesthesia in the past. Patient denies any history of active cardiac conditions. No history of heart failure or CAD. She did undergo a negative stress test in 2019 as there is a family history of cardiac disease. She has had no cardiac testing since. Patient denies any history of VISHAL but does have a history of significant snoring and has woken herself up from sleep in thepast. Patient denies history of diabetes, CKD or prior cerebrovascular disease. Patient is able to achieve 4 METS at baseline without any exertional chest pain or shortness of breath. Patient denies any ongoing issues with syncope, presyncope, dizziness, lightheadedness, heart palpitations. She hasstable mild lower extremity edema associated with venous insufficiency. The patient does not smoke or drink significant alcohol. The patient's EKG was personally reviewed which shows normal sinus rhythm per my interpretation. ROS:>>>>>>>>>> The following system(s) were reviewed. Pertinent positive and negative findings are noted in the HPI. [x] Const [x] ENT [x] CV [x] [x] Musc [x] Psych [x] Allergy [x] Eyes [x] Resp [x] GI [x] Neuro [x] Skin [x] Endo [x] Heme/Lymph PMH/PSH/SH/FH: Past Medical History: Diagnosis Date Cough Neck pain RADIATING TO ARMS Obesity Past Surgical History: Procedure Laterality Date CHOLECYSTECTOMY COLONOSCOPY ESOPHAGOSCOPY / EGD HYSTERECTOMY PELVIC LAPAROSCOPY ROTATOR CUFF REPAIR Right Family history reviewed and positive for cardiac disease Social History Socioeconomic History Marital status: Single Spouse name: Not on file Number of children: Not on file Years of education: Not on file Highest education level: Not on file Occupational History Not on file Tobacco Use Smoking status: Never Smoker Smokeless tobacco: Never Used Vaping Use Vaping Use: Never used Substance and Sexual Activity Alcohol use: Not on file Comment: rarely Drug use: Never Sexual activity: Not on file Other Topics Concern Not on file Social History Narrative Not on file Allergy Information: I have reviewed the patient's allergies. Ambien [zolpidem] and Vicodin [hydrocodone-acetaminophen] Home Medications: Prior to Admission medications Medication Sig Start Date End Date Taking? Authorizing Provider acetaminophen (TYLENOL) 500 mg tablet Take by mouth every 6 (six) hours if needed for mild pain. 2 TABS Historical Provider, gabapentin (NEURONTIN) 600 mg tablet Take by mouth 3 (three) times a day. Historical Provider, tiZANidine (ZANAFLEX) 4 mg capsule Take 4 mg by mouth 3 (three) times a day. Historical Provider, trolamine salicylate (ASPERCREME TOP) Apply topically. Historical Provider, PHYSICAL EXAMINATION > > > > > > > > Vital Signs: Temp: 36.3 C (97.4 F) (07/10 1330) Heart Rate: 89 (07/10 1330) Resp: 18 (07/10 1330) BP: 141/91 (07/10 1330) GENERAL: NAD, alert and appropriate EYES: Conjunctiva and sclera clear, EOMI ENT: Hearing intact. Moist mucous membranes NECK: Supple CV: RRR, no murmur. Trace lower extremity edema bilaterally RESP: Clear, no rales, rhonchi, wheezes or increase in respiratory effort, no use of accessory muscles GI: Non-distended, +BS, soft, non-tender. No guarding, masses or rebound MUSC: Normal ROM without deformity. No pedal edema SKIN: Warm and dry. No rashes. NEURO: Alert, Ox3. Grossly normal motor and sensory exam. No focal deficits PSYCH: Mood and affect are appropriate. Cooperative. Results Review > > > > > > > > Lab Results Component Value Date WBC 7.6 07/10/2022 HGB 12.6 07/10/2022 HCT 39.3 07/10/2022 PLT 235 07/10/2022 NA 136 07/10/2022 K 3.8 07/10/2022 CL 104 07/10/2022 CREATININE 0.79 07/10/2022 BUN 15 07/10/2022 CO2 26 07/10/2022 INR 0.9 07/10/2022 Lab and diagnostic studies personally reviewed by me. Laboratory and Additional Data Acquired or Reviewed: [x] Laboratory [x] Radiology [x] Cardiology [x] Medications [x] Transcriptions [x] Microbiology [x] Outside Records [] Family Time Spent: [employer] Phone: [phone] 837-819610-05-2022 History and physical note* Janice Elliott DO - 07/24/2022 8:50 AM EDT History and Physical Update ( H&P completed within the previous thirty days ) I personally reviewed the History and Physical, interviewed and examined the patient prior to surgery. No changes have occurred in the patient's condition since the History and Physical was completed. [id number] History and physical note* Janice Elliott DO - 07/24/2022 8:50 AM EDT Pt. Here for ACMD C5-6 due to spondylosis her exam is unchanged Source Note - Gabreila Guan MD - 07/10/2022 1:30 PM EDT Images from the original note were not included. Gabriela Guan MD [facility] Hospitalists Medical Consultation Patient Name:Cece Smith MR #:[id number] :1965 Admit Date: Physicians: No Pcp Physician (Family); Janice Elliott DO (Referring) Reason for Consultation: Pre-Operative medical risk stratification and testing at the request of Dr. Elliott Perpetual Assessment: Cece Smith is a 57 y.o. female who presented to PAT clinic for pre operative evaluation prior to C5-C6 anterior cervical microdiscectomy with graft/plate and C arm on 07/24/2022. ASSESSMENT AND PLAN Pre-Operative testing and risk stratification - The patient is being evaluated for an intermediate risk surgery - The patient has no symptoms - The patient's functional capacity is able to achieve 4 METS - The patient has the following pertinent Revised Cardiac Risk Index Indicators None - I have reviewed EKG and pertinent labs - Based on the above, the patient is at acceptable risk to proceed to surgery - Advised to hold anti-platelets, NSAIDs and alternative supplements (such as vitamins, herbal medications) 5-7 days prior to Surgery; These can be resumed post-operatively when cleared by the Surgeon Cervical spine stenosis -Surgical procedure planned as above Probable VISHAL -Patient has a history of significant snoring and advised to talk to her PCP about arranging an outpatient sleep study -Monitor closely in the perioperative setting History of venous insufficiency -With stable mild lower extremity edema bilaterally HISTORY CC: Preoperative evaluation HPI: Cece Smith is a 57 y.o. female with cervical stenosis. Patient has had anesthesia before and denies any issues with anesthesia in the past. Patient denies any history of active cardiac conditions. No history of heart failure or CAD. She did undergo a negative stress test in 2019 as there is a family history of cardiac disease. She has had no cardiac testing since. Patient denies any history of VISHAL but does have a history of significant snoring and has woken herself up from sleep in thepast. Patient denies history of diabetes, CKD or prior cerebrovascular disease. Patient is able to achieve 4 METS at baseline without any exertional chest pain or shortness of breath. Patient denies any ongoing issues with syncope, presyncope, dizziness, lightheadedness, heart palpitations. She hasstable mild lower extremity edema associated with venous insufficiency. The patient does not smoke or drink significant alcohol. The patient's EKG was personally reviewed which shows normal sinus rhythm per my interpretation. ROS:>>>>>>>>>> The following system(s) were reviewed. Pertinent positive and negative findings are noted in the HPI. [x] Const [x] ENT [x] CV [x] [x] Musc [x] Psych [x] Allergy [x] Eyes [x] Resp [x] GI [x] Neuro [x] Skin [x] Endo [x] Heme/Lymph PMH/PSH/SH/FH: Past Medical History: Diagnosis Date Cough Neck pain RADIATING TO ARMS Obesity Past Surgical History: Procedure Laterality Date CHOLECYSTECTOMY COLONOSCOPY ESOPHAGOSCOPY / EGD HYSTERECTOMY PELVIC LAPAROSCOPY ROTATOR CUFF REPAIR Right Family history reviewed and positive for cardiac disease Social History Socioeconomic History Marital status: Single Spouse name: Not on file Number of children: Not on file Years of education: Not on file Highest education level: Not on file Occupational History Not on file Tobacco Use Smoking status: Never Smoker Smokeless tobacco: Never Used Vaping Use Vaping Use: Never used Substance and Sexual Activity Alcohol use: Not on file Comment: rarely Drug use: Never Sexual activity: Not on file Other Topics Concern Not on file Social History Narrative Not on file Allergy Information: I have reviewed the patient's allergies. Ambien [zolpidem] and Vicodin [hydrocodone-acetaminophen] Home Medications: Prior to Admission medications Medication Sig Start Date End Date Taking? Authorizing Provider acetaminophen (TYLENOL) 500 mg tablet Take by mouth every 6 (six) hours if needed for mild pain. 2 TABS Historical Provider, gabapentin (NEURONTIN) 600 mg tablet Take by mouth 3 (three) times a day. Historical Provider, tiZANidine (ZANAFLEX) 4 mg capsule Take 4 mg by mouth 3 (three) times a day. Historical Provider, trolamine salicylate (ASPERCREME TOP) Apply topically. Historical Provider, PHYSICAL EXAMINATION > > > > > > > > Vital Signs: Temp: 36.3 C (97.4 F) (07/10 1330) Heart Rate: 89 (07/10 1330) Resp: 18 (07/10 1330) BP: 141/91 (07/10 1330) GENERAL: NAD, alert and appropriate EYES: Conjunctiva and sclera clear, EOMI ENT: Hearing intact. Moist mucous membranes NECK: Supple CV: RRR, no murmur. Trace lower extremity edema bilaterally RESP: Clear, no rales, rhonchi, wheezes or increase in respiratory effort, no use of accessory muscles GI: Non-distended, +BS, soft, non-tender. No guarding, masses or rebound MUSC: Normal ROM without deformity. No pedal edema SKIN: Warm and dry. No rashes. NEURO: Alert, Ox3. Grossly normal motor and sensory exam. No focal deficits PSYCH: Mood and affect are appropriate. Cooperative. Results Review > > > > > > > > Lab Results Component Value Date WBC 7.6 07/10/2022 HGB 12.6 07/10/2022 HCT 39.3 07/10/2022 PLT 235 07/10/2022 NA 136 07/10/2022 K 3.8 07/10/2022 CL 104 07/10/2022 CREATININE 0.79 07/10/2022 BUN 15 07/10/2022 CO2 26 07/10/2022 INR 0.9 07/10/2022 Lab and diagnostic studies personally reviewed by me. Laboratory and Additional Data Acquired or Reviewed: [x] Laboratory [x] Radiology [x] Cardiology [x] Medications [x] Transcriptions [x] Microbiology [x] Outside Records [] Family Time Spent: * Janice Elliott DO - 07/24/2022 8:50 AM EDT History and Physical Update ( H&P completed within the previous thirty days ) I personally reviewed the History and Physical, interviewed and examined the patient prior to surgery. No changes have occurred in the patient's condition since the History and Physical was completed. documented in this encounterRothman Orthopaedic Specialty [id number] Procedure note* aJnice Elliott DO - 07/24/2022 7:16 AM EDT Operative Note Patient Name: CECE SMITH Date of Service: July 24, 2022 Date of : 1965 Clinician: JANICE ELLIOTT DO Facility: [facility] Location: [place] [address] PREOPERATIVE DIAGNOSIS: Left upper extremity radiculopathy secondary to cervical spondylosis at C5-C6. POSTOPERATIVE DIAGNOSIS: Left upper extremity radiculopathy secondary to cervical spondylosis at C5-C6. PROCEDURES: 1. Anterior cervical decompression and fusion at C5-C6. 2. Interbody fusion at C5-C6 using Titan C graft size 7 x 16 x 14, 6 degrees of lordosis filled with [place] DBM. 3. Anterior plate fixation using Zevo plate size 23 mm. 4. Anterior fixation using 3.5 x 13 mm screws x4. 5. Fluoroscopic guidance. 6. Microsurgical technique. SURGEON: Janice Elliott DO COSMETIC ACCOUNT COORDINATOR: Lacey Sandoval, certified PA, who was present during the entire procedure to help with exposure, retract delicate structures, and help with closure. She is integral to the procedure to decrease operative time, decrease blood loss, and help with overall patient care. BLOOD LOSS: Less than 10 mL. CRYSTALLOID: 1200 mL. OPERATIVE TIME: Approximately 40 minutes. GROSS FINDINGS: Spondylosis at C5-C6. Complications none noted. All counts were correct. Excellent hemostasis achieved at time of closure. After decompression, neural foramen was widely patent. INDICATIONS FOR PROCEDURE: The patient is a pleasant 57-year-old gentleman who has had severe left arm pain. MRI scan shows collapse of disc space, posterior spur, and uncovertebral joint hypertrophy, left greater than right, causing foraminal stenosis. I discussed with her anterior cervical decompression and fusion. I reviewed the risks, benefits, and limitations of procedure, usual operative and postoperative course, my experience. She wished to proceed with surgery in hopes of helping her condition. DESCRIPTION OF PROCEDURE: After obtaining informed consent, the patient was taken back to the operative suite by Department of Anesthesia. Cardiac monitors were placed appropriately. She was placed supine on the operating room table. She was intubated in neutral fashion without difficulty. ET tube was secured and verified by Anesthesia. SCDs were placed in lower extremities. Her arms were padded and tucked at her side. Neck was kept in neutral position and midline. Skin scribe marked the anticipated incision site over the right side of the sternocleidomastoid, 2 fingerbreadths above the clavicle. Her neck was then prepped and draped in standard fashion. A timeout was called, verified armband, verified anatomical level, procedure, and implants along with the universal precautions. Fire precautions were 1. She had been given preoperative IV antibiotic and Decadron per protocol. All were ready to proceed. There were no question or concern voiced prior to incision. Next, a #10 blade was used to make a transverse in cision. Dissection was carried down to platysma with Metzenbaum and forceps, which was cauterized with bipolar cautery sharply. The sternocleidomastoid freed along its medial border with Metzenbaum scissors. The trachea and esophagus were brought medially. Carotid arteries were palpated bilaterally. Omohyoid was freed along its superior and inferior border and mobilized. The precervical fascia was incised with Metzenbaum scissors. Longus colli were cauterized with bipolar cautery on the medial border and freed with Metzenbaum scissors. Needle was inserted into the disc space. C-arm was sterilely draped and brought into the field. Cross-fire lateral C-arm verified we were at the C6-C7 disk and then I went up to the disc above and marked this as C5-C6. We made sure we were in the midline. Self-retaining belt glass sander retractors were removed. All needles were removed and the retractor exposedthe C5-C6 disc. Microscope was sterilely draped and brought into the field, and under direct magnification, I incised the disk at C5-C6 with a 15-blade and resected with straight pituitary rongeur. I then performed partial corpectomy of C5, removal of 20% of vertebral body in order to adequately decompress the neural foramen. Endplates were decorticated for Devine-Jalloh type graft. I drilled down to the posterior spur, drilled off the posterior spur superior and inferiorly. Posterior longitudinal ligament was elevated with a nerve hook, incised with a 15-blade and resected with 1 and 2 mm Kerrisons. Foraminotomy was completed with 2.0 angled and 3.0 angled curette and 1 and 2 mm Kerrisonsbilaterally. After decompression, neural foramen was widely patent bilaterally. Depth gauge was used to measure depth of disc space and found to be 16 mm. A trial 7 x 16 x 14, 6 degrees of lordosis was found to be appropriately sized and lordosed for the graft. The trial was removed. Surgiflo was inserted in disc space and then copiously irrigated out. No active bleeding was noted. No CSF leak was seen. The Titan C graft was then filled with DBM, size 7 x 16 x 14, 6 degrees of lordosis insertedin disc space, countersunk 2 mm. Nerve hook was passed behind the graft and found to be free and clear of spinal cord. A 23 mm Zevo plate was placed over the spine and found to be appropriately sizedand lordosed. It was then affixed with 3.5 x 13 mm screws x4, two in vertebral body of C5, two in vertebral body of C6, all with good solid purchase and fixation. The plate screw locking mechanism was secured into place. Final AP and lateral x-ray showed excellent placement of interbody graft, plate , and screws. The wound was copiously irrigated with antibiotic saline. Retractors were removed. All counts were correct. Excellent hemostasis achieved at time of closure. I inspected the trachea andesophagus and they were found to be free and clear of any injury. Cardiovascular structures were found to be free and clear of injury. No active bleeding was noted. All counts were correct. Platysma was closed with 4-0 Vicryl in interrupted fashion. Skin was closed with running 4-0 subcuticular stitch, dressed with Dermabond glue and a Band-Aid. The patient was placed in soft cervical collar and planned to be extubated per protocol. The patient will be taken back to the postoperative care unit in stable condition. We will speak with family after the procedure. JANICE ELLIOTT DO TT: 07/24/2022 13:55:00 SUZAN/RAVINDRA [place] note* Clinical Note Date No Information [facility] Work Phone: Discharge summary* Clinical Note Date No Information [facility] Phone: Evaluation note* Diagnosis Cervical disc herniation Displacement of cervical intervertebral disc without myelopathy documented in this encounter [facility] note* Type Assessment Date No Information [facility] Work Phone: Evaluation note* Diagnosis Chondromalacia, patella, left- Primary Acute pain of left knee Effusion of left knee documented in [facility] encounter [facility]* 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 Neck pain after neck surgery Cervical post-laminectomy syndrome Postlaminectomy syndrome, cervical region Cervical spondylosis without myelopathy documented in this encounter [facility] Work Phone: History and physical note* Clinical Note Date No Information [facility] Work Phone: Instructions* Date Instruction Additional Infor mation No Information [facility] Work Phone: Progress note* Clinical Note Date No Information [facility] Work Phone: Reason for referral (narrative)* Reason For Referral No Information [facility] Work Phone: Reason for visit Narrative* Auth/CertSpecialty Diagnoses / ProceduresReferred By ContactReferred To Contact Diagnoses Other spondylosis with myelopathy, cervical region Procedures WI ARTHRDS ANT I-B DISCECTOMY DECMPR SPINAL CORD/NERVE ROOTS CERV BELOW C2 WI INS I-B BIOMECH DEV TO IV DISC SPACE CONJ W/I-B ARTHRDS EA INTERSPACE WI INSTRUMENTATION ANTERIOR 2-3 VERTEBRAL SEGMENTS C5-C6 ANTERIOR CERVICAL MICRODISCECTOMY WITH GRAFT/PLATE AND C-ARM Janice Elliott DO [address] [place] [address] [facility] [address] [place] [address] Referral IDStatusReasonStart DateExpiration DateVisits RequestedVisits [id number] [facility] Summary Purpose Family History No Family History Records Found Family Member Type Diagnosis Age At Onset Sister Problem (finding) Hypertension SisterProblem (finding)Diabetes mellitusFatherProblem (finding)Diabetes mellitus BrotherProblem (finding)Diabetes mellitusFatherProblem (finding)Hypertension MotherProblem (finding)CancerMotherProblem (finding)Congenital heart disease FatherProblem (finding)Congenital heart diseaseMotherProblem (finding) Hypertension Family Member Type Diagnosis Age At Onset Sister Problem (finding) Hypertension SisterProblem (finding)Diabetes mellitusFatherProblem (finding)Diabetes mellitus BrotherProblem (finding)Diabetes mellitusFatherProblem (finding)Hypertension BrotherProblem (finding)HypertensionMotherProblem (finding)CancerMotherProblem (finding)Congenital heart diseaseFatherProblem (finding)Congenital heart disease MotherProblem (finding)Hypertension Advance Directives No Advanced Directives Records FoundLatest Code Status on File Code StatusDate ActivatedDate InactivatedCommentsFull Code - Izmpyja90/5/2022 12:26 07/24/2022 3:26 PMThis is order is used when code status has not been discussed with the patient, or code status is otherwise unknown/unconfirmed To update the patient's code status, place a code status order. Do not modify or discontinue any currently active code status orders. Directive Yes / No Effective Date File Name No Information Additional Source Comments INFORMATION SOURCE (unrecogn ized section and content) DATE CREATED AUTHOR 04/13/2018 [facility] DATE CREATED AUTHOR AUTHOR'S ORGANIZ ATION 04/15/2018 [facility] DATE CREATED AUTHOR AUTHOR'S ORGANIZ ATION 10/30/2021 [facility] DATE CREATED AUTHOR AUTHOR'S ORGANIZ ATION 07/26/2022 [facility] DATE CREATED AUTHOR AUTHOR'S ORGANIZ ATION 03/28/2023 [facility] DATE CREATED AUTHOR AUTHOR'S ORGANIZ ATION 04/19/2024 [facility] DATE CREATED AUTHOR AUTHOR'S ORGANIZ ATION 12/01/2024 [facility] DATE CREATED AUTHOR AUTHOR'S ORGANIZ ATION 02/10/2025 [facility] DATE CREATED AUTHOR AUTHOR'S ORGANIZ ATION 02/24/2025 [facility] EPIC DATE CREATED AUTHOR AUTHOR'S ORGANIZ ATION 06/09/2025 [facility] DATE CREATED AUTHOR AUTHOR'S ORGANIZ ATION 08/19/2025 [facility] DATE CREATED AUTHOR AUTHOR'S ORGANIZ ATION 08/25/2025 [facility] Ordered Prescriptions (unrec ognized section and content) PrescriptionSigDispensedRefillsStart DateEnd Date oxyCODONE-acetaminophen (PERCOCET) 5-325 mg per tablet Take 1-2 tablets by mouth every 4-6 hours as needed for pain. 56 tablet /09/2022 tiZANidine (ZANAFLEX) 4 mg tablet Take 1 tablet (4 mg total) by mouth every 8 (eight) hours if needed for muscle spasms for up to 14 days. 42 tablet Scheduled Active and Recently Administ ered Medications (unrecognized section and content) Medication Order ceFAZolin (ANCEF) 1 g in sodium chloride 0.9 % 1,000 mL OR irrigation (COMPLETED) irrigation, Once, On Fri07/24/22 at 1000, For 1 dose, Intraprocedure, Indication: Prophylaxis-Surgical * 1000 (Due) * 1033 (Given - Provider: Janice Elliott DO) ceFAZolin (ANCEF) 2 gram/20 mL IV syringe 2 g (COMPLETED) 2 g, intravenous, Administer over 3 Minutes, Once, On Fri07/24/22 at 0800, For 1 dose, Preprocedure, If patient less than 120kg (administer within 60 minutes of incision), Indication: Prophylaxis-Surgical * 0946 (Given - Provider: HUDSON Ferrari) ceFAZolin (ANCEF) 2 gram/20 mL IV syringe 2 g 2 g, intravenous, Administer over 3 Minutes, Every 8 hours, First dose on Fri07/24/22 at 1245, For 2 doses, Recovery & On Unit, Indication: Prophylaxis-Surgical * 1245 (Canceled Entry - Provider: Automatic Discharge Provider - Comment: Automatically canceled at discontinue of medication order) dexamethasone (DECADRON) injection 8 mg 8 mg, intravenous, Once, On Fri07/24/22 at 0800, For 1 dose, Preprocedure, Pre- operatively. 10mg - Joints 8mg - Spine * 0800 (Canceled Entry - Provider: Automatic Discharge Provider - Comment: Automatically canceled at discontinue of medication order) diazePAM (VALIUM) injection 5 mg (COMPLETED) 5 mg, intravenous, Once, On Fri07/24/22 at 1115, For 1 dose, Recovery (only) * 1114 (Given - Provider: Analisa Dietz RN) gabapentin (NEURONTIN) tablet 600 mg 600 mg, oral, Every 8 hours scheduled, First dose on Fri07/24/22 at 1400, Recovery & On Unit * 1400 (Canceled Entry - Provider: Automatic Discharge Provider - Comment: Automatically canceled at discontinue of medication order) methocarbamoL (ROBAXIN) injection 1,000 mg (COMPLETED) 1,000 mg, intravenous, Once, On Fri07/24/22 at 0800, For 1 dose, Preprocedure, Give IV push over 5 minutes * 0817 (Given - Provider: Roxanne Rossi RN) polyethylene glycol (MIRALAX) packet 17 g 17 g, oral, Daily, First dose on Fri07/24/22 at 1245, Bowel Regimen - for prevention of constipation * 1245 (Canceled Entry - Provider: Automatic Discharge Provider - Comment: Automatically canceled at discontinue of medication order) senna-docusate (PERICOLACE) 8.6-50 mg per tablet 1 tablet 1 tablet, oral, 2 times daily, First dose on Fri07/24/22 at 1245, Recovery & On Unit, Bowel Regimen - for prevention of constipation * 1245 (Canceled Entry - Provider: Automatic Discharge Provider - Comment: Automatically canceled at discontinue of medication order) sodium chloride 0.9 % flush 10 mL(Linked Group 1) 10 mL, intravenous, 2 times daily, First dose on Fri07/24/22 at 1245, Recovery & On Unit * 1245 (Canceled Entry - Provider: Automatic Discharge Provider - Comment: Automatically canceled at discontinue of medication order) Medication Order//02/2022 lactated Ringer's infusion 20 mL/hr, intravenous, Continuous, Starting on Fri07/24/22 at 0800, Preprocedure, Keep vein open * 0817 (New Bag - Provider: Roxanne Rossi RN) * 0926 (Continued by Anesthesia - Provider: HUDSON Ferrari) * 1017 (Paused - Provider: HUDSON Ferrari - Comment: Switch to gravity) * 1018 (New Bag - Provider: HUDSON Ferarri) * 1049 (Anesthesia Volume Adjustment - Provider: HUDSON Ferrari) Oxygen Therapy, Adult inhalation, Continuous, Starting on Fri07/24/22 at 1245, Recovery & On Unit, Device: Nasal Cannula, Keep O2 Sat Above: 90% * 1245 (Canceled Entry - Provider: Automatic Discharge Provider - Comment: Automatically canceled at discontinue of medication order) sodium chloride 0.9 % infusion 100 mL/hr, intravenous, Continuous, Starting on Fri07/24/22 at 1245 * 1245 (Canceled Entry - Provider: Automatic Discharge Provider - Comment: Automatically canceled at discontinue of medication order) Medication Order//02/2022 bisacodyL (DULCOLAX) suppository 10 mg 10 mg, rectal, Daily PRN, constipation, Starting on Fri07/24/22 at 1226, 2nd line for treatment of constipation - give scheduled (in addition to 1st line agent) if no bowel movement in past 48 hours HYDROmorphone (DILAUDID) injection 0.5 mg 0.5 mg, intravenous, Every 3 hours PRN, severe pain, not controlled by oral narcotics, Starting on Fri07/24/22 at 1225, Recovery & On Unit HYDROmorphone (DILAUDID) injection 0.5 mg (CANCELED) 0.5 mg, intravenous, Every 5 min PRN, severe pain, for use in PACU only, Starting on Fri07/24/22 [id number], For 6 doses, Recovery (only) * 1100 (Given - Provider: Analisa Dietz RN) * 1120 (Given - Provider: Analisa Dietz RN) labetalol (NORMODYNE) injection 5 mg (CANCELED) 5 mg, intravenous, Every 5 min PRN, high blood pressure, HBP, Starting on Fri07/24/22 at 1110, Recovery (only), As needed for: -SBP GREATER than 180 mmHg -DBP GREATER than 110 mmHg -HOLD for pulse LESS than 60 bpm * 1153 (Given - Provider: Analisa Dietz, IVÁN) lidocaine PF (XYLOCAINE) 1 % injection 0.2 mL 0.2 mL, intradermal, Once as needed, for IV insertion, Starting on Fri07/24/22 at 0732, For 1 dose,Preprocedure magnesium citrate solution 296 mL 296 mL, oral, Once as needed, constipation, constipation, Starting on Fri07/24/22 at 1226, For 1 dose, 2nd line for treatment of constipation - give scheduled (in addition to 1st line agent) if no bowel movement in past 48 hours. If no bowel movement within 3 hours of magnesium citrate administration, contact provider for further instructions. ondansetron (PF) (ZOFRAN) injection 4 mg(Linked Group 2) 4 mg, intravenous, Every 8 hours PRN, vomiting, nausea, Starting on Fri07/24/22 at 1225, Recovery & On Unit, -ONLY give IV if patient is unable to take orally. -If inadequate response within 30 minutes, proceed to next-line agent or contact provider if no further options ordered. ondansetron ODT (ZOFRAN-ODT) disintegrating tablet 4 mg(Linked Group 2) 4 mg, oral, Every 8 hours PRN, vomiting, nausea, Starting on Fri07/24/22 at 1225, Recovery & OnUnit, -Give IV if patient is unable to take orally. -If inadequate response within 30 minutes, proceed to next-line agent or contact provider if no further options ordered. For ODT tablets: -Do not remove from blister pack until just before administering. -Patient should allow tablet to dissolve ontongue. oxyCODONE (ROXICODONE) immediate release tablet 10 mg 10 mg, oral, Every 4 hours PRN, Breakthrough Pain, Starting on Fri07/24/22 at 1225, Recovery & On Unit oxyCODONE-acetaminophen (PERCOCET) 5-325 mg per tablet 1 tablet 1 tablet, oral, Every 6 hours PRN, severe pain, moderate pain, Starting on Fri07/24/22 at 0851, Recovery & On Unit * 1252 (Given - Provider: Melissa Duke RN) Oxygen Therapy, Adult inhalation, As needed, shortness of breath, Starting on Fri07/24/22 at 1225, Phase II/On Unit, Device: Nasal Cannula, Keep O2 Sat Above: 92% prochlorperazine (COMPAZINE) injection 10 mg(Linked Group 3) 10 mg, intravenous, Every 6 hours PRN, nausea, vomiting, Starting on Fri07/24/22 at 1226, 2nd Line Option: -ONLY give IV if patient is unable to take orally. - Give IM if patient does not have IV Access -If inadequate response within 30 minutes, proceed to next-line agent or contact provider if no further options ordered. * 1252 (See Alternative - Provider: Melissa Duke RN) prochlorperazine (COMPAZINE) suppository 25 mg(Linked Group 3) 25 mg, rectal, Every 12 hours PRN, nausea, vomiting, Starting on Fri07/24/22 at 1226, 2nd Line Option: -ONLY give WI if patient is unable to take orally and cannot receive IV/IM. -If inadequate response within 30 minutes, proceed to next-line agent or contact provider if no further options ordered. * 1252 (See Alternative - Provider: Melissa Duke RN) prochlorperazine (COMPAZINE) tablet 10 mg(Linked Group 3) 10 mg, oral, Every 6 hours PRN, nausea, vomiting, Starting on Fri07/24/22 at 1226, 2nd Line Option:-Give IV or IM if patient is unable to take orally. -If inadequate response within 30 minutes, proceed to next-line agent or contact provider if no further options ordered. * 1252 (Given - Provider: Melissa Duke, IVÁN) sodium chloride 0.9 % flush 10 mL(Linked Group 1) 10 mL, intravenous, As needed, line care, Starting on Fri07/24/22 at 1225, Recovery & On Unit thrombin topical solution (CANCELED) As needed, Starting on Fri07/24/22 at 0941, Intraprocedure * 0941 (Given - Provider: Janice Elliott, DO - Comment: TO SOAK GELFOAM) tiZANidine (ZANAFLEX) tablet 4 mg 4 mg, oral, Every 8 hours PRN, muscle spasms, Starting on Fri07/24/22 at 1225, Recovery & On Unit * 1252 (Given - Provider: Melissa Duke RN) Order Group 1: Insert peripheral IV (CANCELED) STAT, Once, On Fri07/24/22 at 1226, For 1 occurrence
Recovery & On Unit And Maintain IV access (CANCELED) Until discontinued, Starting on Fri07/24/22 at 1226, Until Specified
Recovery & OnUnit And Saline lock IV (CANCELED) Routine, Once, On Fri07/24/22 at 1226, For 1 occurrence
When tolerating PO fluids, Recovery & On Unit And sodium chloride 0.9 % flush 10 mLJump to med 10 mL, intravenous, 2 times daily, First dose on Fri07/24/22 at 1245, Recovery & On Unit And sodium chloride 0.9 % flush 10 mLJump to med 10 mL, intravenous, As needed, line care, Starting on Fri07/24/22 at 1225, Recovery & On Unit Group 2: ondansetron ODT (ZOFRAN-ODT) disintegrating tablet 4 mgJump to med 4 mg, oral, Every 8 hours PRN, vomiting, nausea, Starting on Fri07/24/22 at 1225, Recovery & On Unit
-Give IV if patient is unable to take orally. - If inadequate response within 30 minutes, proceed to next-line agent or contact provider if no further options ordered. For ODT tablets: -Do not remove from blister pack until just before administering. -Patient should allow tablet to dissolve on tongue.
Or ondansetron (PF) (ZOFRAN) injection 4 mgJump to med 4 mg, intravenous, Every 8 hours PRN, vomiting, nausea, Starting on Fri07/24/22 at 1225, Recovery & On Unit
-ONLY give IV if patient is unable to take orally. -If inadequateresponse within 30 minutes, proceed to next-line agent or contact provider if no further options ordered.
Group 3: prochlorperazine (COMPAZINE) tablet 10 mgJump to med 10 mg, oral, Every 6 hours PRN, nausea, vomiting, Starting on Fri07/24/22 at 1226
2nd LineOption: -Give IV or IM if patient is unable to take orally. -If inadequate response within 30 minutes, proceed to next-line agent or contact provider if no further options ordered.
Or prochlorperazine (COMPAZINE) injection 10 mgJump to med 10 mg, intravenous, Every 6 hours PRN, nausea, vomiting, Starting on Fri07/24/22 at 1226
2nd Line Option: -ONLY give IV if patient is unable to take orally. -Give IM if patient does not have IV Access -If inadequate response within 30 minutes, proceed to next-line agent or contact provider if no further options ordered.
Or prochlorperazine (COMPAZINE) suppository 25 mgJump to med 25 mg, rectal, Every 12 hours PRN, nausea, vomiting, Starting on Fri07/24/22 at 1226
2nd Line Option: -ONLY give WI if patient is unable to take orally and cannot receive IV/IM. -If inadequate response within 30 minutes, proceed to next-line agent or contact provider if no further options ordered.
Care Teams (unrecognized sec tion and content) Team MemberRelationshipSpecialtyStart DateEnd Date Physician, No Pcp PCP - General07/10/22 Name Effective Dates (start - stop) Status Members No Information Team MemberRelationshipSpecialtyStart DateEnd Date Unallocated, [place] MD Jazlyn [address] [place] [address] PCP - GeneralFamily Medicine02/15/25Team MemberRelationshipSpecialtyStart DateEnd Date Naheed Arteaga MD [address] [place] [address] PCP - GeneralInternal Medicine02/15/25 Reason for Visit (unrecogniz ed section and content) ReasonCommentsPainReasonCommentsPain FOR RECORDS PERTAINING TO PATIENTS WHO ARE OR HAVE BEEN ENROLLED IN A CHEMICAL DEPENDENCY/SUBSTANCEABUSE PROGRAM, SOME INFORMATION MAY BE OMITTED. This clinical summary was aggregated from multiple sources. Caution should be exercised in using it in the provision of clinical care. This summary normalizes information from multiple sources, and as a consequence, information in this document may materially change the coding, format and clinical context of patient data. In addition, data may be omitted in some cases. CLINICAL DECISIONS SHOULD BE BASED ON THE PRIMARY CLINICAL RECORDS. [employer] provides no warranty or guarantee of the accuracy or completeness of information in this document.
--- OUTSIDE RECORDS SUMMARY | 2025-09-05 04:46 | XMS_ITS | Clinical Summary ---
Author Organization [facility] Address [address] 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 Role Phone Unavailable Primary Care Provider Unavailabl e Allergies Active AllergyReactionsCriticalityNoted DateCommentsHydrocodone-AcetaminophenGI Upset,GI intolerance,TikmKivsib55/24/2018 Other Reaction(s): GI Disturbance Other Reaction(s): Vomiting ??, Hives Other Reaction(s): GI Disturbance OxycodoneGI intolerance,Nausea/gijcwrsl30/14/2023ZolpidemHives,RashMedium 05/07/2017 Medications MedicationSigDispense QuantityRefillsLast FilledStart DateEnd DateStatus buPROPion XL (Wellbutrin XL) 150 mg 24 hr tablet Take 1 tablet (150 mg) by mouth once daily in the morning.5Active hydroCHLOROthiazide (Microzide) 12.5 mg capsule 5Active meloxicam (Mobic) 15 mg tablet Take 1 tablet (15 mg) by mouth early in the morning..5Active rosuvastatin (Crestor) 5 mg tablet 5Active methocarbamol (Robaxin) 750 mg tablet Take 1 tablet (750 mg) by mouth 2 times a day as needed for muscle spasms. 5Active traMADol (Ultram) 50 mg tablet Indications:Cervical post-laminectomy syndrome,Cervical spondylosis without myelopathyTake 1 tablet (50 mg) by mouth every 12 hours if needed for moderate pain (4 - 6). 60 tablet 5Active naloxone (Narcan) 4 mg/0.1 mL nasal spray Indications:Cervical post-laminectomy syndrome,Cervical spondylosis without myelopathyAdminister 1 spray (4 mg) into one nostril if needed for opioid reversal. May repeat every 2-3 minutes if needed, alternating nostrils, until medical assistance becomes available. 2 each 5Active Active Problems ProblemNoted DateDiagnosed DateNeck pain after neck pskaqvl3005/07/2017 Encounters DateTypeDepartmentCare PlgyXtdmlmufswn36/29/2025 2:30 PM EDTOffice Visit [facility] [address] [place] [phone] Daniel Carranza DO [facility] (current) use of opiate analgesic (Primary Dx); Neck pain after neck surgery; Cervical post-laminectomy syndrome; Cervical spondylosis without myelopathy Discharge Disposition: Home08/16/2025Travelfrom Last 3 Months Family History Medical HistoryRelationNameCommentsDiabetesFatherDonald ShermanArthritisMother Antonia ShermanCancerMotherSmdrwashington hospital ShermanRelationNameStatusCommentsFatherTri-County Hospital - WillistonmanDeceasedMoSt. Mary's HospitalmanDeceased Social History Tobacco UseTypesPacks/DayYears UsedDateSmoking Tobacco: NeverSmokeless Tobacco: Never Tobacco Cessation:Counseling Given: Not Answered Alcohol UseStandard Drinks/WeekCommentsNot Currently0 (1 standard drink = 0.6 oz pure alcohol)Only occasionallyCommentsUnknownSex and Gender Information ValueDate RecordedSex Assigned at NhiflZcwalv15/28/2025 3:04 PM EDTLegal Sex Hqizfb8909/13/2022 8:09 PM ESTGender LiipdqgyMossfc16/28/2025 3:04 PM EDTSexual PqzvqjzxatoSftcedwk96/28/2025 3:04 PM EDT Last Filed Vital Signs Vital SignReadingTime TakenCommentsBlood Zlxsyref163/7308/17/2025 2:26 PM EDT Ecavo74964/29/2025 2:26 PM OSYVgvzjggwfyh78.7 ??C (98.1 ??F)08/17/2025 2:26 PM EDTRespiratory Wwic5540 2:26 PM EDTOxygen Rjdsoxcwmk96%08/17/2025 2:26 PM EDTInhaled Oxygen Concentration--Tinbie509 kg (252 lb)08/17/2025 2:26 PM EDT Pxabkr041.6 cm (5' 6 )08/17/2025 2:26 PM EDTBody Mass Index40.6708/17/2025 2:26 PM EDT Plan of Treatment DateTypeDepartmentCare Team (Latest Contact Info)Njmvvuylwqs72/18/2025 3:15 PM ESTAppointment [facility] [address] [address] [place] [address] 09/21/2025 3:45 PM ESTOffice Visit [facility] [address] [place] [phone] Daniel Carranza DO [address] [place], [place] [phone] Health MaintenanceDue DateLast DoneCommentsCT Jzsympaaqnom1967Colonoscopy 1967Colorectal Cancer Jvmlqhpya1967FIT-DNA (Cologuard)1967FIT 1967HIV Bbghrntla1967Lipid Panel04/20/19675798Rtbgabcqtvvis1967 Yearly Adult Veeubroa1967MMR Vaccines (1 of 1 - Standard series)1968 Diabetes Qcsrmsihl93/02/1985Hepatitis C Xjalulnux29/02/1985Hepatitis B Vaccines (1 of 3 - 19+ 3-dose series)1986Cervical Cancer Uamysocob37/02/1988 HPV/Ayjqtf9004/20/1988Pap Smear1988Pneumococcal Vaccine (1 of 1 - PCV) 2017Zoster Vaccines (1 of 2)04/20/20177156Eimxzqiod81, 02/18/2023Influenza Vaccine (#1)2025OVID-19 Vaccine (1 - 2024- season) 2025DTaP/Tdap/Td Vaccines (2 - Td or Tdap)/HIB Vaccines Aged OutNo longer eligible based on patient's age to complete this topicHPV VaccinesAged OutNo longer eligible based on patient's age to complete this topic Hepatitis A VaccinesAged OutNo longer eligible based on patient's age to complete this topicIPV VaccinesAged OutNo longer eligible based on patient's age to complete this topicMeningococcal VaccineAged OutNo longer eligible based on patient's age to complete this topicRotavirus VaccinesAged OutNo longer eligible based on patient's age to complete this topic Procedures Procedure NamePriorityDate/TimeAssociated DiagnosisCommentsOPIATE/OPIOID/BENZO PRESCRIPTION MUBTCPMRBCMbwtbax59/29/2025 3:11 PM EDT [facility] (current) use of opiate analgesic from Last 3 Months Results * Opiate/Opioid/Benzo Prescription Compliance (08/17/2025 3:11 PM EDT)Component ValueRef RangeTest MethodAnalysis TimePerformed AtPathologist Signature Alldacegkw41.8> or = 20.0 mg/dLQuest Diagnostics of Latrobe HospitalpH 5.34.5 - 9.0Quest Diagn[facility] of Lat[facility] HospitalOxidantNEGATIVE<200 mcg/mLQuest Diagnostics of Latrobe HospitalAmphetaminesNEGATIVE<500 ng/mLQuest Diagnostics of Latrobe HospitalBarbituratesNEGATIVE<300 ng/mLQuest Diagnostics of Latrobe HospitalCocaine MetaboliteNEGATIVE <150 ng/mLQuest Diagnostics of Latrobe HospitalMarijuana Metabolite NEGATIVE<20 ng/mLQuest Diagnostics of Latrobe HospitalPhencyclidine NEGATIVE<25 ng/mLQuest [facility] Hospital AlphahydroxyalprazolamNEGATIVE<25 ng/mLQuest Diagnostics of Latrobe HospitalAlphahydroxymidazolamNEGATIVE<50 ng/mLQuest Diagnostics of Latrobe HospitalAlphahydroxytriazolamNEGATIVE<50 ng/mLQuest [facility] HospitalAminoclonazepamNEGATIVE<25 ng/mLQuest [facility] HospitalHydroxyethylflurazepamNEGATIVE<50 ng/mL [facility] HospitalLorazepamNEGATIVE<50 ng/mLQuest [facility] of [facility] HospitalNordiazepamNEGATIVE<50 ng/mLQuest [facility] of [facility] HospitalOxazepamNEGATIVE<50 ng/mLQuest [facility] HospitalTemazepamNEGATIVE<50 ng/mLQuest [facility]ostics of Lat[facility] HospitalBenzodiazepines CommentsQuest Diagnostics of Latrobe HospitalComoaklawn hospital:See LDT NotesFentanylNEGATIVE <0.5 ng/mLQuest [facility] of [facility] HospitalNorfentanylNEGATIVE<0.5 ng/mLQuest [facility]ostics of [facility] HospitalFentanyl CommentsQuest Diagnostics of Lat[facility] HospitalComoaklawn hospital:See LDT Notes6 Acetylmorphine NEGATIVE<10 ng/mLQuest Diagnostics of Latrobe HospitalHeroin Metab CommentsQuest Diagnostics of Latrobe HospitalComoaklawn hospital:See LDT NotesEDDP NEGATIVE<100 ng/mLQuest [facility] of [facility] HospitalMethadone NEGATIVE<100 ng/mLQuest [facility]ostics of Lat[facility] HospitalMethadone CommentsQuest Diagnostics of [facility]:See LDT Notes CodeineNEGATIVE<50 ng/mL[facility] HydrocodoneNEGATIVE<50 ng/mL[facility] HydromorphoneNEGATIVE<50 ng/mL[facility] MorphineNEGATIVE<50 ng/mL[facility] NorhydrocodoneNEGATIVE<50 ng/mL[facility] Opiates CommentsQuest Diagnostics of [facility]:See LDT NotesNoroxycodoneNEGATIVE<50 ng/mL[facility] OxycodoneNEGATIVE<50 ng/mL[facility] OxymorphoneNEGATIVE<50 ng/mL[facility] Oxycodone Comments[facility] of [facility]:See LDT NotesDesmethyltramadolNEGATIVE<100 ng/mLQuest [facility]ostics of [facility] HospitalTramadolNEGATIVE<100 ng/mLQuest [facility]ostics of Lat[facility] HospitalTramadol CommentsQuest Diagnostics of [facility] HospitalComoaklawn hospital:See LDT NotesZolpidemNEGATIVE<5 ng/mLQuest Diagnostics of Latrobe HospitalZolpidem MetaboliteNEGATIVE<5 ng/mLQuest Diagnostics of Latrobe HospitalZolpidem CommentsQuest [facility] of [facility] HospitalComoaklawn hospital:See LDT NotesNotes and CommentsQuest Diagnostics of [facility]: This drug testing is for medical treatment only. Analysis was performed as non-forensic testing and these results should be used only by healthcare providers to render diagnosis or treatment, or to monitor progress of medical conditions. LDT Notes: Confirmation tests were developed and their analytical performance characteristics have been determined by [employer]. It has not been cleared or approved by the FDA. This assay has been validated pursuant to the CLIA regulations and is used for clinical purposes. Healthcare Providers needing Interpretation assistance, please contact us at [phone] ( ) M-F, 8am to 10pm EST Specimen (Source)Anatomical Location / LateralityCollection Method / Volume Collection TimeReceived TimeUrineUrine specimen / Svhhgaa3308/17/2025 3:11 PM EDT 08/18/2025 3:45 AM EDT Narrative Authorizing ProviderResult TypeResult StatusJojorge SHAW URINE ORDERABLESFinal ResultPerforming OrganizationAddressCity/State/ZIP CodePhone Number [facility] [address] [facility], [address] [place] [address] from Last 3 Months [address] [place] [phone] [address] [place] [address]
--- OUTSIDE RECORDS SUMMARY | 2025-09-05 04:46 | XMS_ITS | Clinical Summary ---
Author Organization [facility] tem Address [id number] [address] [place] [address] Care Team Providers Care Quality Improvement Coordinator Name Role Phone Services, [facility] Primary Care Provider Allergies Active AllergyReactionsCriticalityNoted FoabBtrngyqaEpmnaquaSgmwCgz71/08/2019 Hydrocodone-AcetaminophenGI VijfjccydknTwi64/08/2019 Medications MedicationSigDispense QuantityRefillsLast FilledStart DateEnd DateStatus gabapentin (NEURONTIN) 300 mg capsule Take 300 mg by mouth 3 (three) times a day. Active ibuprofen (ADVIL,MOTRIN) 800 mg tablet Take 1 tablet (800 mg total) by mouth 3 (three) times a day. 30 tablet 02/24/2019Active Additional Information Patient not taking.Reported on 03/17/2019 lisinopril (PRINIVIL,ZESTRIL) 10 mg tablet Take 10 mg by mouth daily.Active omeprazole (PriLOSEC) 20 mg capsule Take 20 mg by mouth 2 (two) times a day.Active cholecalciferol, vitamin D3, 2,000 units capsule Take 2,000 Units by mouth daily.Active Active Problems ProblemNoted DateDiagnosed DateHypertensionChest painKnee painEdemaArthritis Overview (03/12/2019): NECK Encounters DateTypeDepartmentCare AojiOohueyovzgn37/13/2025 10:20 AM EST - 09/01/2025 11:59 PM ESTHospital Encounter [facility] - [facility] [address] [place] [phone] Visit for screening mammogram Discharge Disposition: Home08/30/2025Travelfrom Last 3 Months Family History Medical HistoryRelationNameCommentsHeart diseaseFatherHeart attackMotherHeart diseaseMotherUterine cancerMotherBreast cancerNeg HxRelationNameStatusComments FatherDeceasedMotherAlive Social History Tobacco UseTypesPacks/DayYears UsedDateSmoking Tobacco: NeverSmokeless Tobacco: NeverAlcohol UseStandard Drinks/WeekCommentsNever0 (1 standard drink = 0.6 oz pure alcohol)AUDIT-CAnswerDate RecordedFrequency of Alcohol ConsumptionNever 03/17/2019Average Number of DrinksNot on file03/17/2019Frequency of Binge DrinkingNot on file03/17/2019ChildcareAnswerDate RecordedChildcareUnknown 03/22/2019EmploymentAnswerDate FhtfnvztUexwguwelnRrlskbq35/03/2019Purpose - Life AnswerDate RecordedPurpose and direction in bcfvMvleayf99/11/2021 CommentsNoSex and Gender InformationValueDate RecordedSex Assigned at Bovpkx2101/17/2023 8:56 AM EDTLegal KepGgkxlk99/06/2015 11:26 AM EDTGender NxmgiffzTtwgge12/31/2023 8:56 AM EDTSexual OrientationDon't know01/17/2023 8:56 AM EDT Last Filed Vital Signs Vital SignReadingTime TakenCommentsBlood Ynjbrfuz141/6805 8:58 AM EDT Ybwfl7154 8:58 AM IQDTnuikkcyojm28.3 ??C (97.4 ??F)02/24/2019 2:14 PM EDTRespiratory Wuos465202/24/2019 2:17 PM EDTOxygen Inwiczafrl54%02/24/2019 2:14 PM EDTInhaled Oxygen Concentration--Qetuzs876.3 kg (252 lb)09/01/2025 10:32 AM FVABsdxau797.6 cm (5' 6 )09/01/2025 10:32 AM ESTBody Mass Index40.6709/01/2025 10:32 AM EST Plan of Treatment Health MaintenanceDue DateLast DoneCommentsDepression Wzcyjekee88/02/1979Tobacco Bcpbafith28/02/1979Adult BMI Follow Up Plan1985Pap Smear1988Zoster (Shingles) Vaccine (1 of 2)2017COVID-19 Vaccine (3 - 2024- season) 509/, 06/21/2021Influenza Apdjddq3006/20/2025dult BMI Screening DTaP,Tdap and Td Vaccines (2 - Td or Tdap)02/14/2033 02/14/2023 Medical Devices Not on file Procedures Procedure NamePriorityDate/TimeAssociated DiagnosisCommentsMAMM SCREENING BILATERAL W GMZYbpehye83/13/2025 10:46 AM EST Visit for screening mammogram from Last 3 Months Results * Mammography screening bilateral with CAD (09/01/2025 10:46 AM EST)Anatomical RegionLateralityModalityBreastBilateralMammographySpecimen (Source)Anatomical Location / LateralityCollection Method / VolumeCollection TimeReceived Time 09/02/2025 10:29 AM EST Narrative 09/02/2025 10:31 AM EST KILEY SMITH 1965 [id number] EXAM: MAMM SCREENING BILATERAL W CAD, 09/01/2025 [...] 10:31 AM 2 b MAMM 1 YR FDA Accredited Performing Facility: [facility]ammography[facility]DEXA Imaging [address] [facility] [id number] Procedure Note Andre Sheikh MD - 09/02/2025 KILEY SMITH 1965 [id number] EXAM: MAMM SCREENING BILATERAL W CAD, 09/01/2025 [...] 10:31 AM 2 b MAMM 1 YR FDA Accredited Performing Facility: [facility] - [facility]ammography/DEXA Imaging [address] [facility] [id number] Authorizing ProviderResult TypeResult StatusRamsha Chandler MDIMG MAMMOGRAPHY ORDERABLESFinal Result from Last 3 Months Insurance [address] [place] [address] * Guarantor: Kiley Smithunt TypeRelation to PatientDate of BirthPhone Billing QittkghTfjjyRwnz[address] [place] [address] Care Teams Team MemberRelationshipSpecialtyStart DateEnd Date Services, [facility] [address] [place], [place] [facility]01/30/24
--- OUTSIDE RECORDS SUMMARY | 2025-09-05 04:46 | XMS_ITS | Clinical Summary ---
Author Organization [facility] Address [address] [place] [address] Care Team Providers Care Sap Solution Manager Consultant Name Role Phone Miky Garrett PA-C Primary Care Provider Darrell Pemberton DO Unavailable [phone] Social History Tobacco UseTypesPacks/DayYears UsedDateSmoking Tobacco: Never AssessedArea Deprivation IndexAnswerDate RecordedNational Score (1-100), lower number is lower riskNot on file1State Score (1-10), lower number is lower riskNot on file1Data from: https://www.neighborhoodatlas.medicine.[facility].edu/. Last address used for calculationNot on file1CommentsUnknownSex and Gender InformationValueDate RecordedSex Assigned at KfjemBrkxnn16/04/2023 4:23 PM ESTLegal SwcSvzode35/31/2018 2:58 PM EDTGender QxrgiincAqvqpm00/04/2023 4:23 PM ESTSexual NiemmnrbsjeCovxlhln80/04/2023 4:23 PM EST Plan of Treatment Health MaintenanceDue DateLast DoneCommentsAnxiety Gsqhebtmq45/02/1985Depression Aamcntrlh64/02/1985HIV Qhqxnjcyn32/02/1985Hepatitis C Ghkxowwnx26/02/1985 DTaP,Tdap,Td Vaccine (1 - Tdap)1986Hepatitis B Vaccine (1 of 3 - 19+ 3- dose series)1986Cervical Cancer Fzhugksuh53/02/1988Mammogram Screening 2007CT Cjkhlbdlcdvy68/02/2012Cologuard (FIT-DNA)2012Colonoscopy 2012Colorectal Cancer Nyopcrbrw21/02/2012Diabetes Ytkvmfteq63/02/2012Fecal Occult Blood2012Lipid Uizlzwtxz62/02/5445Sbejlthpyzgqe66/02/2012 Pneumococcal Vaccine: 50+ (1 of 1 - PCV)2017Shingrix Vaccine (1 of 2) 2017Covid-19 Vaccine (1 - 2024- season)2025Influenza Vaccine (#1) [address] [place] [address] [id number] [address] [place] [address] Care Teams Team MemberRelationshipSpecialtyStart DateEnd Miky Garrett PA-C PCP - GeneralInternal Medicine05/19/18 Darrell Pemberton DO [address] [place] [place] [address] [facility] Jjaefxkd98/16/21
--- OUTSIDE RECORDS SUMMARY | 2025-09-05 04:46 | XMS_ITS | Encounter Summary ---
Author Organization [employer] [facility] tem Address [id number] [address] [place] [address] Care Team Providers Care Starch Crab Name Role Phone [facility] Primary Care Provider Encounter Details DateTypeDepartmentCare Team (Latest Contact Info)Zaymgtmumuj89/11/2025Travel Social History Tobacco UseTypesPacks/DayYears UsedDateSmoking Tobacco: NeverSmokeless Tobacco: NeverAlcohol UseStandard Drinks/WeekCommentsNever0 (1 standard drink = 0.6 oz pure alcohol)AUDIT-CAnswerDate RecordedFrequency of Alcohol ConsumptionNever 03/17/2019Average Number of DrinksNot on file03/17/2019Frequency of Binge DrinkingNot on file03/17/2019ChildcareAnswerDate RecordedChildcareUnknown 03/22/2019EmploymentAnswerDate SdeyyssgXedkajnjjpMhahppm50/03/2019Purpose - Life AnswerDate RecordedPurpose and direction in lbwdXmyyxsp05/11/2021 CommentsUnknownSex and Gender InformationValueDate RecordedSex Assigned at Calxwx6701/17/2023 8:56 AM EDTLegal KbgNtoadk29/06/2015 11:26 AM EDTGender SmqzzcviCafobo32/31/2023 8:56 AM EDTSexual OrientationDon't know01/17/2023 8:56 AM EDTdocumented as of this encounter Plan of Treatment Not on file documented as of this encounter Visit Diagnoses Not on filedocumented in this encounter Care Teams Team MemberRelationshipSpecialtyStart DateEnd Date [facility] [address] [place] PCP - GeneralFamily Medicine01/30/24documented as of this encounter
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
--- OUTSIDE RECORDS SUMMARY | 2025-09-05 04:47 | XMS_ITS | Clinical Summary ---
Author Organization [facility] Healthcare Address [address] [place] [address] Care Team Providers Care Professor Of Industrial Technology Name Role Phone Naheed Arteaga MD Primary Care Provider Allergies Active AllergyReactionsCriticalityNoted DateCommentsHydrocodone-AcetaminophenGI intolerance,GuhqFmwkze35/24/2018 Other Reaction(s): Vomiting ??, Hives Other Reaction(s): GI Disturbance OxycodoneGI rproyisgmor44/14/2023ZolpidemHives,RekrKdoqtr48/19/2017 Medications MedicationSigDispense QuantityRefillsLast FilledStart DateEnd DateStatus methocarbamol (Robaxin) 750 MG tablet Take 750 mg by mouth 2 (two) times a day as vkedzq435Active rosuvastatin (Crestor) 5 MG tablet TAKE 1 TABLET BY MOUTH DAILY for 90Active hydroCHLOROthiazide (Microzide) 12.5 MG capsule TAKE 1 CAPSULE BY MOUTH EVERY MORNING for 90Active buPROPion XL (Wellbutrin XL) 150 MG 24 hr tablet 1 time each day at the same time.5Active Active Problems ProblemNoted DateDiagnosed BhmqQscevwtrfpob46/29/2025Moderate major depression 02/15/20252241Ywbsqsear82/29/2025 Overview (02/15/2025): NECK Spondylosis of cervical spine09/01/2023 Social History Tobacco UseTypesPacks/DayYears UsedDateSmoking Tobacco: NeverSmokeless Tobacco: Never Tobacco Cessation:Counseling Given: Not Answered Alcohol UseStandard Drinks/WeekCommentsNever0 (1 standard drink = 0.6 oz pure alcohol)CommentsUnknownSex and Gender InformationValueDate RecordedSex Assigned at BirthNot on fileLegal YvlVjomgb77/15/2023 7:09 PM EDTGender Identity Not on fileSexual OrientationNot on file Last Filed Vital Signs Vital SignReadingTime TakenCommentsBlood Ejncrgoz475/8204 12:00 PM EDT Pulse--Temperature--Respiratory Rate--Oxygen Saturation--Inhaled Oxygen Concentration--Ggxpdb604 kg (252 lb)02/11/2023 12:00 PM QBMJpyayi615.6 cm (5' 6 )02/11/2023 12:00 PM EDTBody Mass Index40.67002/11/2023 12:00 PM EDT Plan of Treatment Health MaintenanceDue DateLast DoneCommentsCT Czmnisunmgco1965Colonoscopy 1965Colorectal Cancer Ejodcvsqu1967FIT-DNA1967FIT1965 FOBT04/20/19670586Braolwzrefsyp1967Pap Smear1988Cervical Cancer Jljbslxrh91/02/1997HPV/Mcdtiz5004/20/19973387Uxbwnymqc89/02/202405/OVID-19 Vaccine (2024- season)509/, 06/21/2021Influenza Vaccine (#1)2025Pneumococcal Vaccine: Pediatrics (0 to 5 Years) and At-Risk Patients (6 to 64 Years)Aged OutNo longer eligible based on patient's age to complete this topic Procedures Procedure NamePriorityDate/TimeAssociated DiagnosisCommentsBI MAMMOGRAM DIAGNOSTIC ZEQBPLBGSIfviukc11/02/2023 from Last 3 Months or Most Recently Relevant to Health Maintenance Results * Bilateral diagnostic mammogram (02/18/2023)Anatomical RegionLateralityModality BreastBilateralMammographySpecimen (Source)Anatomical Location / Laterality Collection Method / VolumeCollection TimeReceived Time Narrative 02/18/2023 12:00 AM EDT PERFORMED AT [facility] LOCATION:[address] Patient: ? LUIS Gamez ? Exam Date: ? 02/18/2023 : ? 1965 ?Gender:F ? Ordering : ? DR ANDREA CORONA . ? Admission #: ? [id number] Family : ?Order #: ? [id number] ? CLICK HERE TO VIEW EXAM RADIOLOGY REPORT PROCEDURE: ? MAMMOGRAM DIAGNOSTIC 3D BILATERAL CAD 02/18/2023 12:48 ULTRASOUND BREAST LEFT LIMITED 02/18/2023 13:45 COMPARISON: ? MG MAMM RT DIAG W CAD 05/14/2019. ??MAMMO POST BIOPSY RIGHT 09/15/2018. ??MG MAMM LETY DIAG W CAD 09/08/2018. ??DIGITIZED_MAMMO 12/07/2008. INDICATIONS: ? Screening mammography Calculator Name ? NCI Breast Cancer Risk Assessment Tool 5 Year Breast Cancer Risk ? 1.60% Lifetime Breast Cancer Risk ? 10.90% Personal Breast Cancer ?No Personal Ovarian Cancer ? No Treatments ? None Family Cancers ? Mother with uterine cancer at age 82. LOCATION: ? [facility] BREAST COMPOSITION: ? Heterogeneously dense which may obscure small masses. FINDINGS: DIAGNOSTIC CATEGORY 2--BENIGN FINDING: RIGHT BREAST: ??No significant suspicious finding. ??Scattered benign-appearing calcifications are present. ??No significant change has occurred. LEFT BREAST: ??A skin surface marker localizes the patient''s palpable lump to the posterior lower-outer quadrant. ??This overlies a rim calcifying chronic oil cyst also seen on prior studies. Ultrasound evaluation demonstrates a 1.4 x 1.2 x 1.1 cm benign appearing cyst and an adjacent 0.4 cm benign appearing cyst. ??No suspicious findings. RECOMMENDATIONS: ROUTINE MAMMOGRAM AND CLINICAL EVALUATION IN 12 MONTHS. PLEASE NOTE: ??A NORMAL MAMMOGRAM DOES NOT EXCLUDE THE POSSIBILITY OF BREAST CANCER. ??A CLINICALLY SUSPICIOUS PALPABLE LUMP SHOULD BE BIOPSIED. Dictated by: Brant Sequeira M.D. on 02/18/2023 at 14:57 Approved by: Brant Sequeira M.D. on 02/18/2023 at 15:04 Procedure Note CONVERSION, GENERIC - 04/25/2023 PERFORMED AT [facility] LOCATION:[address] Patient: LUIS Gamez Exam Date: 02/18/2023 : 1965 Gender:F Ordering : DR ANDREA CORONA . Admission #: [id number] Family : Order #: [id number] CLICK HERE TO VIEW EXAM RADIOLOGY REPORT PROCEDURE: MAMMOGRAM DIAGNOSTIC 3D BILATERAL CAD 02/18/2023 12:48 ULTRASOUND BREAST LEFT LIMITED 02/18/2023 13:45 COMPARISON: MG MAMM RT DIAG W CAD 05/14/2019. MAMMO POST BIOPSY RIGHT 09/15/2018. MG MAMM LETY DIAG W CAD 09/08/2018. DIGITIZED_MAMMO 12/07/2008. INDICATIONS: Screening mammography Calculator Name NCI Breast Cancer Risk Assessment Tool 5 Year Breast Cancer Risk 1.60% Lifetime Breast Cancer Risk 10.90% Personal Breast Cancer No Personal Ovarian Cancer No Treatments None Family Cancers Mother with uterine cancer at age 82. LOCATION: [facility] BREAST COMPOSITION: Heterogeneously dense which may obscure small masses. FINDINGS: DIAGNOSTIC CATEGORY 2--BENIGN FINDING: RIGHT BREAST: No significant suspicious finding. Scatteredbenign-appearing calcifications are present. No significant change has occurred. LEFT BREAST: A skin surface marker localizes the patient''s palpable lumpto the posterior lower-outer quadrant. This overlies a rim calcifyingchronic oil cyst also seen on prior studies. Ultrasound evaluation demonstrates a 1.4 x 1.2 x 1.1 cm benign appearingcyst and an adjacent 0.4 cm benign appearing cyst. No suspicious findings. RECOMMENDATIONS: ROUTINE MAMMOGRAM AND CLINICAL EVALUATION IN 12 MONTHS. PLEASE NOTE: A NORMAL MAMMOGRAM DOES NOT EXCLUDE THE POSSIBILITY OFBREAST CANCER. A CLINICALLY SUSPICIOUS PALPABLE LUMP SHOULD BE BIOPSIED. Dictated by: Brant Sequeira M.D. on 02/18/2023 at 14:57 Approved by: Brant Sequeira M.D. on 02/18/2023 at 15:04 Authorizing ProviderResult TypeResult StatusAndrea AJG BI PROCEDURES Final Result from Last 3 Months or Most Recently Relevant to Health Maintenance Insurance Care Teams Team MemberRelationshipSpecialtyStart DateEnd Date Naheed Arteaga MD [address] [place] [id number] PCP - GeneralInternal Medicine02/15/25
--- OUTSIDE RECORDS SUMMARY | 2025-09-05 04:48 | XMS_ITS | Clinical Summary ---
Author Organization [facility] Address [address], [address] [place] [address] Care Team Providers Care Therapeutic Assistant Name Role Phone Shashi Ott MD Primary Care Provider [phone] Allergies Active AllergyReactionsCriticalityNoted DateCommentsZolpidem Spjkuiam84/19/2017 Medications MedicationSigDispense QuantityRefillsLast FilledStart DateEnd DateStatus mwkscvu-jqyvdfiqptgam-cevespau (EXCEDRIN MIGRAINE) 250-250-65 MG per tablet Take 1 tablet by mouth every 8 hours as needed for HeadachesActive Social History Tobacco UseTypesPacks/DayYears UsedDateSmoking Tobacco: Never Assessed CommentsNoSex and Gender InformationValueDate RecordedSex Assigned at BirthNot on fileLegal NsiOiaxeu22/10/2013 3:29 PM ESTGender IdentityNot on fileSexual OrientationNot on file Last Filed Vital Signs Vital SignReadingTime TakenCommentsBlood Yogspzxy292/9305/07/2017 12:49 AM EDT Xzkrh91038/19/2017 12:49 AM PWCWgxikrkwqxs32.8 ??C (98.2 ??F)05/07/2017 12:49 AM EDTRespiratory Aveq128405/07/2017 12:49 AM EDTOxygen Csrelewnvd60%05/07/2017 12:49 AM EDTInhaled Oxygen Concentration--Ayfumf473.3 kg (230 lb)08/06/2017 9:08 AM ZEHYdbkdn892.6 cm (5' 6 )08/06/2017 9:08 AM EDTBody Mass Index37.121 9:08 AM EDT Plan of Treatment Not on file Care Teams Team MemberRelationshipSpecialtyStart DateEnd Date Shashi Ott MD PCP - GeneralFautly Medicine05/07/17
[2025-09-05 04:56] LABS: Anion Gap 11.2; Blood Urea Nitrogen 16.0 mg/dL (7.0-18.0); Calcium 9.1 mg/dL (8.5-10.1); Carbon Dioxide 28.7 mmol/L (21.0-32.0); Chloride 106 mmol/L (98-107); Estimated GFR (African America >60 (>=60 mL/min/1.73m^2); Estimated GFR (Non-African Ame >60 (>=60 mL/min/1.73m^2); Glucose 111 mg/dL (74-106); Potassium 3.9 mmol/L (3.5-5.1); Sodium 142 mmol/L (136-145)
[2025-09-05] MEDS: KETOROLAC TROMETHAMINE 30 MG/ML VIAL IVP (05:07)
[2025-09-05 05:49] VITALS: BP 142/100; PULSE 78; O2SAT 98
== END 2025-09-05 06:02 | disposition home or self-care (01) ==
PROVIDERS: Emergency Provider Emergency Medicine
DX: R07.9 Chest pain, unspecified (principal)
CPT/HCPCS: 36415; 71045; 80048; 84484; 85025; 93005; 96374; 99284; 99285; J1885